=== PATIENT | female | born 1960 | race Caucasian/White ===

== ENCOUNTER 2020-05-13 10:21 | Day surgery (SDC) | payer MEDICARE, OTHER, SELFPAY ==
[2020-05-06 14:59] VITALS: BMI 29.0
--- NOTE | 2020-05-12 13:45 | HO.ANESPROP2 ---
Documented by User: Susan Pack 05/12/20 13:48 HPI - Anesthesia Eval Consult details Narrative: 60yo F for colonoscopy PMFSH Past Medical History Medical History Arthritis of back Chronic back pain Depression Elevated cholesterol History of palpitations Hypertension Migraine Surgical History Surgical History History of back surgery History of carpal tunnel surgery of right wrist History of lumbar spinal fusion Hx of colonoscopy Status post left foot surgery Social History Social History Smoking Status: Former smoker Smoked in Last 30 Days: No Smoking Quit Date: 2 YEARS AGO Use of substances other than those prescribed or required for medical reasons: No Advance Directives: Yes Advance Directives on File: Yes Advance Directives Date on File: 05/13/20 Recently lost weight without trying: No Meds Allergies Allergy/AdvReac Type Severity Reaction Status Date / Time Iodinated Contrast Media Allergy Hives Verified 05/06/20 14:47 oxycodone [From OxyContin] Allergy Hives Verified 05/06/20 14:47 Home Medications Medication Instructions Recorded Confirmed Type atorvastatin 1 tab PO DAILY 05/06/20 05/06/20 History dicyclomine 1 tab PO QID 05/06/20 05/06/20 History diphenoxylate-atropine [Lomotil] 1 tab PO DAILY PRN 05/06/20 05/06/20 History fluoxetine 60 mg PO 05/06/20 History hydrocodone-acetaminophen 1 tab PO BID PRN 05/06/20 05/06/20 History lorazepam PO 05/06/20 History vokfiejnkbbd-bqmncykz-gkohfo 1 tab PO DAILY 05/06/20 05/06/20 History [Centrum Silver] propranolol 1 cap PO DAILY 05/06/20 05/06/20 History quetiapine 1 tab PO BEDTIME 05/06/20 05/06/20 History rizatriptan [Maxalt] 10 mg PO Q2-4H PRN 05/06/20 05/06/20 History Exam Exam Date and Time: May 12, 2020 1345 Height,Weight and Vital Signs: Height 5 ft 6 in Weight 81.647 kg Pertinent Lab Results Pertinent Lab Results: ECHO 2017: LVEF 65-70%, no rwma, no valve path Assessment and Plan Assessment Anesthesia Assessment: Chart Reviewed Documented by User: Nicole Orosco 05/13/20 11:38 PMFSH Past Medical History Medical History Arthritis of back Chronic back pain Depression Elevated cholesterol History of palpitations Hypertension Migraine Family History Family history of problems with anesthesia: No Surgical History Surgical History History of back surgery History of carpal tunnel surgery of right wrist History of lumbar spinal fusion Hx of colonoscopy Status post left foot surgery History of Problems with Anesthesia: No Social History Social History Smoking Status: Former smoker Smoked in Last 30 Days: No Smoking Quit Date: 2 YEARS AGO Use of substances other than those prescribed or required for medical reasons: No Advance Directives: Yes Advance Directives on File: Yes Advance Directives Date on File: 05/13/20 Recently lost weight without trying: No Meds Allergies Allergy/AdvReac Type Severity Reaction Status Date / Time Iodinated Contrast Media Allergy Hives Verified 05/06/20 14:47 oxycodone [From OxyContin] Allergy Hives Verified 05/06/20 14:47 Home Medications Medication Instructions Recorded Confirmed Type atorvastatin 1 tab PO DAILY 05/06/20 05/06/20 History dicyclomine 1 tab PO QID 05/06/20 05/06/20 History diphenoxylate-atropine [Lomotil] 1 tab PO DAILY PRN 05/06/20 05/06/20 History fluoxetine 60 mg PO 05/06/20 History hydrocodone-acetaminophen 1 tab PO BID PRN 05/06/20 05/06/20 History lorazepam PO 05/06/20 History cltjusnufins-zpupovew-ynhary 1 tab PO DAILY 05/06/20 05/06/20 History [Centrum Silver] propranolol 1 cap PO DAILY 05/06/20 05/06/20 History quetiapine 1 tab PO BEDTIME 05/06/20 05/06/20 History rizatriptan [Maxalt] 10 mg PO Q2-4H PRN 05/06/20 05/06/20 History Exam Height,Weight and Vital Signs: Vital Signs Temp Pulse Resp BP Pulse Ox 05/13/20 11:10 97.5 F 68 18 145/83 H 97 Airway Mallampati Class: II TM Dist: >3cm Neck ROM: Full Loose/Missing/Broken Teeth: Yes (Missing) Heart: RRR Lungs: CTAB Assessment and Plan Assessment Anesthesia Assessment: Anesthesia Plan Discussed, Consent Obtained and Chart Reviewed Final Anesthetic Review NPO: Yes Intake Type: Clears Intake Timing: Greater than 8 hours and Solids Intake Timing: Greater than 8 hours ASA Class: II Final Preanesthetic Review: No Changes in Pt Med Stat, Meds & Allergies Reviewed, Consent Obtained/Reviewed, Med/Surg/Anes Hx Reviewed and Anes Risks/Benef Reviewed Patient Risk: Intermediate Procedure Risk: Low Anesthetic Plan Anesthetic Plan: MAC: Disposition: Standard PACU
[2020-05-13 11:10] VITALS: BP 145/83; PULSE 68; RESP 18; TEMP 36.4; O2SAT 97
[2020-05-13] MEDS: Lactated Ringers 1,000 ML 100 ML IVCONT (11:28)
--- NOTE | 2020-05-13 11:43 | MHC.SHP ---
Pre-Procedural Eval Section A The patient is an INPATIENT: Yes Changes since office visit: No Cold of Flu in the past 2 weeks, No New Medical Problems, No Changes in Medication and No Patient answered all questions The History & Physical has been completed within 30 days and I have reviewed it.: Yes Section B Chief Complaint: SCREENING Allergies: Allergies Allergy/AdvReac Type Severity Reaction Status Date / Time Iodinated Contrast Media Allergy Hives Verified 05/06/20 14:47 oxycodone [From OxyContin] Allergy Hives Verified 05/06/20 14:47 Plan Patient has been examined and remains a candidate for the planned procedure
[2020-05-13 12:26] VITALS: BP 120/65; PULSE 67; RESP 18; TEMP 36.7; O2SAT 98
--- NOTE | 2020-05-13 12:29 | PM.OP ---
Brief Operative Note Date of procedure: 05/13/20 Pre-op diagnosis: screening Post-op diagnosis: other (colon polyp) Procedure: colonosocpy Anesthesia: MAC Surgeon: Chapin Sánchez Estimated blood loss (mL): 0 Pathology: other (polyp 80 cm) Condition: stable Disposition: PACU
--- NOTE | 2020-05-13 12:38 | OP_ITS ---
SURGEON: Chapin Sánchez MD INDICATIONS: Colon cancer screening. PREOPERATIVE DIAGNOSIS: POSTOPERATIVE DIAGNOSIS: PROCEDURE PERFORMED: Colonoscopy to the terminal ileum with snare polypectomy. ESTIMATED BLOOD LOSS: COMPLICATIONS: ANESTHESIA: ASSISTANTS: SPECIMENS: MEDICATIONS: Monitored anesthesia care. DESCRIPTION OF PROCEDURE: History and physical performed. The risks and benefits of the procedure were explained to the patient. Informed consent was obtained. The patient was placed in the left lateral decubitus position. A digital rectal exam was performed and was found to be normal. The Olympus pediatric video colonoscope was introduced into the rectum and advanced to the cecum without difficulty. The cecum was identified by transillumination, palpation, and identification of ileocecal valve. Examination was performed and the scope was removed. She tolerated the procedure well and was taken to recovery area in stable condition. FINDINGS: The terminal ileum was normal. The visualized colonic mucosa was within normal limits without evidence of masses or ulcers. At 80 cm, was a less than 6 mm sessile polyp, this was removed with a snare and recovered via suction. No other polyps were identified. Retroflexed examination was normal. The quality of the prep was good. Hemorrhoids were noted on internal and external examination. IMPRESSION: Colon polyp. RECOMMENDATION: Follow up the biopsy results. MD SONALI Augustin/FRANCISCOL / [id number]
[2020-05-13 12:42] VITALS: BP 131/73; PULSE 62; RESP 20; O2SAT 98
--- NOTE | 2020-05-13 13:12 | HO.POSTANES ---
Post Anesthesia Evaluation Post Anesthesia Evaluation Vital Signs: Vital Signs Temp Pulse Resp BP Pulse Ox 05/13/20 12:42 62 20 131/73 98 05/13/20 12:26 98.1 F 67 18 120/65 98 05/13/20 11:10 97.5 F 68 18 145/83 H 97 Anesthesia: Monitored Mental Status: Awake Pain Control: Satisfactory Nausea/Vomiting: None Hydration: Adequate Anesthesia-Related Issues: No Anes. Related Issues
== END 2020-05-13 13:20 | disposition home or self-care (01) ==
PROVIDERS: PCP Internal Medicine; Visit Provider Internal Medicine Gastroenterology
PROC: 0DJD8ZZ Inspection of Lower Intestinal Tract, Via Natural or Artificial Opening Endoscopic (ICD-10-PCS; CPT 45378; principal; 2020-05-13 11:50)
DX: Z12.11 Encounter for screening for malignant neoplasm of colon (principal); Z86.010 Personal history of colon polyps; D12.4 Benign neoplasm of descending colon; K64.8 Other hemorrhoids; K64.4 Residual hemorrhoidal skin tags; K58.0 Irritable bowel syndrome with diarrhea; K21.9 Gastro-esophageal reflux disease without esophagitis; I10 Essential (primary) hypertension; F32.9 Major depressive disorder, single episode, unspecified; Z79.899 Other long term (current) drug therapy; Z87.891 Personal history of nicotine dependence
CPT/HCPCS: 45385; 88305

== ENCOUNTER 2020-11-11 07:08 | Emergency (ER) | payer MEDICARE, OTHER, SELFPAY ==
--- NOTE | ~2020-11-11 | CT_ITS ---
EXAMINATION: CT CHEST WITHOUT CONTRAST CLINICAL INFORMATION: Fall. Severe left-sided pain. COMPARISON: Previous chest CT scans most recent April 2020 TECHNIQUE: Multidetector volumetric CT imaging of the chest was done. Axial MIP volume rendering provided. Sagittal and coronal reformatted images were obtained. This CT examination was performed using dose optimization techniques as appropriate, variously including the following: *Automated exposure control *Adjustment of mA and/or kV according to patient size (this includes techniques or standardized protocols for targeted exams where dose is matched to indication/reason for exam; i.e. extremities or head) *Use of iterative reconstruction technique DLP: 335 mGy-cm FINDINGS: LUNGS: There is a subsegmental atelectasis in both lower lobes at the lung bases, left greater than right, and in the lingula.. The small pulmonary nodules are stable. MEDIASTINUM: The mediastinum is normal. PLEURA: There is a a trace left pleural effusion. There is no right pleural effusion. There is no pneumothorax. AXILLA: No lymphadenopathy. 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 OSSEOUS STRUCTURES: There is a nondisplaced left posterior eighth rib fracture. There are degenerative changes of the spine. CT/CT chest wo con IMPRESSION: Nondisplaced left posterior eighth rib fracture. Trace left pleural effusion. No pneumothorax. Subsegmental atelectasis at the lung bases.
[2020-11-11 07:34] VITALS: BP 153/74; PULSE 60; RESP 16; TEMP 37.1; O2SAT 98; BMI 28.3
--- NOTE | 2020-11-11 07:39 | ED_ITS ---
HPI - Fall General Chief Complaint: Fall Stated Complaint: back pain, fall Time Seen by Provider: 11/11/20 07:29 Source: patient and EMS Mode of arrival: EMS Limitations: no limitations History of Present Illness HPI Narrative: 60 yo female with hx of chronic back pain fell yesterday while roller skating - struck head no LOC no AC therapy, no vomiting, injured L posterior ribs states she can barely move at this time, no other injuries, did fly from [place] last night post injury took a vicodin with no relief. MD complaint: fall Onset (ago): day(s) (Tuesday ) Fall from: other (while rollerskating) Fall witnessed: yes, by family Place fall occurred: home Loss of consciousness: none Prolonged down time: no Symptoms prior to fall: none Context: tripped/slipped Location of injury: head, chest and back Severity: severe Quality: sharp Associated symptoms (after fall): chest pain (left posterior rib pain) Related Data Home Medications Medication Instructions Recorded Confirmed atorvastatin 1 tab PO DAILY 05/06/20 05/06/20 dicyclomine 1 tab PO QID 05/06/20 05/06/20 diphenoxylate-atropine [Lomotil] 1 tab PO DAILY PRN 05/06/20 05/06/20 fluoxetine 60 mg PO 05/06/20 hydrocodone-acetaminophen 1 tab PO BID PRN 05/06/20 05/06/20 lorazepam PO 05/06/20 ktrdahgkctul-xbyxidgf-wyjhsz 1 tab PO DAILY 05/06/20 05/06/20 propranolol 1 cap PO DAILY 05/06/20 05/06/20 quetiapine 1 tab PO BEDTIME 05/06/20 05/06/20 rizatriptan [Maxalt] 10 mg PO Q2-4H PRN 05/06/20 05/06/20 Previous Rx's Medication Instructions Recorded cyclobenzaprine 10 mg PO TID PRN #14 tab 11/11/20 lidocaine 1 patch TOPICAL DAILY PRN #10 ea 11/11/20 oxycodone 5 mg PO Q6H PRN #15 tab 11/11/20 Allergies Allergy/AdvReac Type Severity Reaction Status Date / Time Iodinated Contrast Media Allergy Hives Verified 05/06/20 14:47 oxycodone [From OxyContin] Allergy Hives Verified 05/06/20 14:47 Review of Systems Review of Systems: Constitutional : No Fever, No Chills ENT/Mouth : No Ear Pain, No Hoarseness, No sore throat Eyes: No Eye Pain, No Swelling, No Redness, No Foreign Body Cardiovascular : pos Chest Pain, No SOB Respiratory : No Cough, No Dyspnea Gastrointestinal : No Nausea, No Vomiting, No Diarrhea, No abdominal Pain Genitourinary : No Dysuria, No Hematuria Musculoskeletal : no joint pain, No Myalgias, No Joint Swelling Skin : No Skin lacerations, No rash Neuro : No Weakness, No Numbness, No Loss of Consciousness, No Dizziness, No Headache Psych : No Anxiety/Panic, No Depression Heme/Lymph: no easy bruising, no Lymphadenopathy Endocrine : No Polyuria, No Polydipsia All other systems reviewed and are negative [facility] Past Medical History Attestation statement: The following information was validated with the patient. Medical History Arthritis of back Chronic back pain Depression Elevated cholesterol History of palpitations Hypertension Migraine Surgical History History of back surgery History of carpal tunnel surgery of right wrist History of lumbar spinal fusion Hx of colonoscopy Status post left foot surgery Social History Social History Alcohol intake: never Smoking Status: Unknown if ever smoked Use of substances other than those prescribed or required for medical reasons: No Advance Directives: Yes Advance Directives on File: Yes Advance Directives Date on File: 05/13/20 Physical Exam Vital Signs: Vital Signs: Last Vital Signs Temp 98.8 F 11/11/20 07:34 Pulse 60 11/11/20 07:34 Resp 16 11/11/20 07:34 BP 153/74 H 11/11/20 07:34 Pulse Ox 98 11/11/20 07:34 Body Mass Index 28.3 Appearance: Alert. Oriented X3. No acute distress. Eyes: Pupils equal, round and reactive to light. ENT: Pharynx normal. Neck: Normal inspection. Neck supple. no midline ttp CVS: Normal heart rate and rhythm. Pulses normal. L posterior ribs ttp no contusion/crepitus noted Respiratory: No respiratory distress. Breath sounds normal. Abdomen: Soft and non-tender. Back: no lumbar ttp Skin: Skin warm and dry. Normal skin color. Normal skin turgor. Extremities: No lower extremity edema. No calf ttp Neuro: Oriented X 3. No motor deficit. No sensory deficit. Course Course Course Narrative: isolated non displaced L posterior 8th rib fracture, no PTX trace effusion, no hypoxia discussed pulmonary toilet and pain control - stable for DC with precautions MDM - Fall MDM Narrative Medical decision making narrative: 60 yo female fall while rollerskating hit head injury occurred on Tuesday no AC therapy no LOC GCS 15 no signs of intracranial injury - c/o pain in L posterior ribs at this time will need pain medications, CT chest to evaluate for rib fractures, dispo per results and findings. Discharge Plan Discharge Clinical Impression: Left rib fracture Qualifiers: Encounter type: initial encounter Rib fracture type: single rib Fracture type: closed Qualified Code(s): S22.32XA - Fracture of one rib, left side, initial encounter for closed fracture Patient Disposition: Home, Self-Care Instructions: Rib Fracture (ED) Additional Instructions: return to ED for any worsening symptoms or concerns left posterior 8th rib fracture nondisplaced every hour while awake take 10 deep breaths to prevent pneumonia Prescriptions: New cyclobenzaprine 10 mg tablet 10 mg PO TID PRN (Reason: muscle spasm) Qty: 14 RF: 0 lidocaine 4 % adhesive patch,medicated 1 patch topical DAILY PRN (Reason: pain) Qty: 10 RF: 0 oxycodone 5 mg tablet 5 mg PO Q6H PRN (Reason: pain) Qty: 15 RF: 0 No Action atorvastatin 10 mg tablet 1 tab PO DAILY RF: 0 hydrocodone-acetaminophen 5-325 mg tablet 1 tab PO BID PRN (Reason: Pain) RF: 0 rizatriptan [Maxalt] 10 mg Tablet 10 mg PO Q2-4H PRN (Reason: Migraine Headache) RF: 0 propranolol 60 mg capsule,extended release 24 hr 1 cap PO DAILY RF: 0 diphenoxylate-atropine [Lomotil] 2.5-0.025 mg Tablet 1 tab PO DAILY PRN (Reason: Diarrhea) RF: 0 dicyclomine 20 mg tablet 1 tab PO QID RF: 0 lorazepam 1 mg tablet PO RF: 0 fluoxetine 20 mg capsule 60 mg PO RF: 0 sycaapebiwco-jqikeipt-zcletn Tablet 1 tab PO DAILY RF: 0 quetiapine 50 mg tablet 1 tab PO BEDTIME RF: 0 Referrals: Christian Saucedo MD [Primary Care Provider] - 2 days (if not better)
[2020-11-11] MEDS: HYDROmorphone HCl 2 MG/ML VIAL IM (08:09)
[2020-11-11 09:56] VITALS: BP 138/71; PULSE 66; RESP 16; O2SAT 97
[2020-11-11 10:25] VITALS: BP 147/69; PULSE 68; RESP 16; O2SAT 98
== END 2020-11-11 10:44 | disposition home or self-care (01) ==
PROVIDERS: Emergency Provider Emergency Medicine; PCP Internal Medicine
DX: S22.32XA Fracture of one rib, left side, initial encounter for closed fracture (principal); W18.39XA Other fall on same level, initial encounter; Y93.51 Activity, roller skating (inline) and skateboarding; Y92.414 Local residential or business street as the place of occurrence of the external cause; Y99.9 Unspecified external cause status
CPT/HCPCS: 71250; 96372; 99284; J1170

== ENCOUNTER 2021-02-15 14:06 | Emergency (ER) | payer MEDICARE, OTHER, SELFPAY ==
--- NOTE | ~2021-02-15 | XR_ITS ---
EXAMINATION: XR ANKLE, LEFT CLINICAL INFORMATION: Fall COMPARISON: None TECHNIQUE: AP, lateral, and mortise views of the left ankle. FINDINGS: There is a minimally displaced fracture of the tip of the medial malleolus. There is an obliquely orientated minimally displaced fracture of the distal fibula. Ankle mortise joint space is intact. There is overall overlying soft tissue swelling. XR/XR ankle LT 2V IMPRESSION: Minimally displaced distal fibular and medial malleolar fractures.
--- NOTE | ~2021-02-15 | XR_ITS ---
EXAMINATION: XR ANKLE, RIGHT CLINICAL INFORMATION: Fall COMPARISON: None TECHNIQUE: AP, lateral, and mortise views of the right ankle. FINDINGS: There is a very small minimally displaced fracture of the tip of the lateral malleolus. There is overlying soft tissue swelling. No additional fractures are identified. The ankle mortise is intact. XR/XR ankle RT 2V IMPRESSION: Small fracture of the tip of the lateral malleolus.
[2021-02-15 14:23] VITALS: BP 143/77; PULSE 68; RESP 16; TEMP 36.6; O2SAT 96; BMI 26.6
--- NOTE | 2021-02-15 14:52 | ED_ITS ---
HPI - General Adult General Chief complaint: Extremity Injury, Lower Stated complaint: FALL Time Seen by Provider: 02/15/21 14:52 Source: patient and family Limitations: no limitations History of Present Illness HPI narrative: Patient complaining of left ankle pain after falling approximately 2 hours ago at home patient also has some right ankle pain that is a lot less than left. Positive swelling to the left ankle greater than the righ t. Pain is 8/10 increases with range of motion or weight-bearing. Patient recently recovered from fractured ribs after a roller skating accident. Positive swelling is noted on the left ankle right ankle slightly swollen but pain is much less. Symptoms are lbkc-ya-zarsthiq at this time. Related Data Home Medications Medication Instructions Recorded Confirmed atorvastatin 1 tab PO DAILY 05/06/20 05/06/20 dicyclomine 1 tab PO QID 05/06/20 05/06/20 diphenoxylate-atropine [Lomotil] 1 tab PO DAILY PRN 05/06/20 05/06/20 fluoxetine 60 mg PO 05/06/20 hydrocodone-acetaminophen 1 tab PO BID PRN 05/06/20 05/06/20 lorazepam PO 05/06/20 hlpcguaakyqa-qpbijmcx-xucaoc 1 tab PO DAILY 05/06/20 05/06/20 propranolol 1 cap PO DAILY 05/06/20 05/06/20 quetiapine 1 tab PO BEDTIME 05/06/20 05/06/20 rizatriptan [Maxalt] 10 mg PO Q2-4H PRN 05/06/20 05/06/20 Previous Rx's Medication Instructions Recorded cyclobenzaprine 10 mg PO TID PRN #14 tab 11/11/20 lidocaine 1 patch TOPICAL DAILY PRN #10 ea 11/11/20 oxycodone 5 mg PO Q6H PRN #15 tab 11/11/20 ibuprofen 600 mg PO Q8H PRN #30 tab 02/15/21 oxycodone-acetaminophen [Percocet] 1 tab PO Q8H PRN #20 tab 02/15/21 Allergies Allergy/AdvReac Type Severity Reaction Status Date / Time Iodinated Contrast Media Allergy Hives Verified 05/06/20 14:47 oxycodone [From OxyContin] Allergy Hives Verified 02/15/21 15:11 Review of Systems Constitutional: Constitutional: Denies chills, Denies fever(s) and Denies headache(s) Eyes: Eyes: Denies diplopia ENT: Denies headache(s) Cardiovascular: Cardiovascular: Denies chest pain, Denies lightheadedness and Denies dyspnea Respiratory: Respiratory: Denies cough and Denies dyspnea Gastrointestinal: Gastrointestinal: Denies nausea and Denies vomiting Musculoskeletal: Musculoskeletal: Reports arthralgias Comments: Positive left ankle pain and swelling Positive right ankle pain much less than left Neurologic: Denies headache(s) and Denies focal weakness Hematologic/Lymphatic: Hematologic/Lymphatic: Reports no additional hematologic/lymphatic complaints [facility] Past Medical History Attestation statement: The following information was validated with the patient. Medical History Arthritis of back Chronic back pain Depression Elevated cholesterol History of palpitations Hypertension Migraine Surgical History History of back surgery History of carpal tunnel surgery of right wrist History of lumbar spinal fusion Hx of colonoscopy Status post left foot surgery Social History Social History Alcohol intake: never Advance Directives: Yes Advance Directives on File: Yes Advance Directives Date on File: 05/13/20 Physical Exam Vital Signs: Vital Signs: Last Vital Signs Temp 97.8 F 02/15/21 14:23 Pulse 68 02/15/21 14:23 Resp 16 02/15/21 14:23 BP 143/77 H 02/15/21 14:23 Pulse Ox 96 02/15/21 14:23 Body Mass Index 26.6 vital signs have been reviewed as normal and appeared to be correct. Blood pressure normal. Heart rate normal. Respiration rate normal. Temperature normal. Oxygen saturation normal. Appearance: Alert. Oriented X3. No acute distress. Head: Normal external exam. Normocephalic. Atraumatic. Eyes: PERRLA. EOMI. Conjunctiva and sclera normal. Eyelids normal. ENT: Pharynx normal. Uvula midline. Moist mucous membranes. CVS: Heart regular rate and rhythm no murmurs and rubs Respiratory: Breath sounds are clear to auscultation bilaterally. No accessory muscle use noted. Skin: Skin warm and dry. Normal skin color. Extremities: Left ankle lateral malleolus tenderness positive edema positive pulses positive sensation. Right ankle positive edema minimal tenderness on palpation. Neuro: Oriented X 3. No motor deficit. No sensory deficit. Reflexes normal. Course Course Course Narrative: Right ankle fracture Left ankle fracture Right ankle sprain left ankle sprain sent to orthopedic ANDIE Hernandez posterior splint for the left walking boot for the right nonweightbearing on the left follow-up with orthopedics within a week Medical Decision Making Imaging Data ANkle: Radiologist's impression: [address] [place], [place] [address]WMbq ReportSigned Patient: Quincy KelleyR#: [id number]: [id number]:[id number]/Sex: 60 / FADM Date: 02/15/21Loc: HOWesleyEDAttending Dr: Ordering Physician: Abelardo Zamora MD Date of Service: 02/15/21 Procedure(s): XR ankle LT 2V Accession Number(s): [id number] cc: Abelardo Zamora MD~ EXAMINATION: XR ANKLE, LEFT CLINICAL INFORMATION: Fall COMPARISON: None TECHNIQUE: AP, lateral, and mortise views of the left ankle. FINDINGS: There is a minimally displaced fracture of the tip of the medial malleolus. There is an obliquely orientated minimally displaced fracture of the distal fibula. Ankle mortise joint space is intact. There is overall overlying soft tissue swelling. XR/XR ankle LT 2V IMPRESSION: Minimally displaced distal fibular and medial malleolar fractures. Dictated By:NIKKO AGRAWAL MDSigned By:<Electronically signed by NIKKO AGRAWAL MD in OV>02/15/21 1442 DD/ 1439TD/TT: Chief Of Anesthesiology: BOB[facility] [place], [place] [address]PWlb ReportSigned Patient: Lisa Kelley#: [id number]: [id number]:[id number]/Sex: 60 / FADM Date: 02/15/21Loc: HO.EDAttending Dr: Ordering Physician: Abelardo Zamora MD Date of Service: 02/15/21 Procedure(s): XR ankle RT 2V Accession Number(s): [id number] cc: Abelardo Zamora MD~ EXAMINATION: XR ANKLE, RIGHT CLINICAL INFORMATION: Fall COMPARISON: None TECHNIQUE: AP, lateral, and mortise views of the right ankle. FINDINGS: There is a very small minimally displaced fracture of the tip of the lateral malleolus. There is overlying soft tissue swelling. No additional fractures are identified. The ankle mortise is intact. XR/XR ankle RT 2V IMPRESSION: Small fracture of the tip of the lateral malleolus. Dictated By:NIKKO AGRAWAL MDSigned By:<Electronically signed by NIKKO AGRAWAL MD in OV>02/15/21 1443 DD/ 1439TD/TT: Chief Of Anesthesiology: BOBBI Discharge Plan Discharge Clinical Impression: Ankle fracture, left, Ankle fracture, right Patient Disposition: Home, Self-Care Instructions: Ankle Fracture (ED) Additional Instructions: Call Orthopedics for follow-up within a week Nonweightbearing on the left ankle There is slight weight on the right rest ice elevation Prescriptions: New oxycodone-acetaminophen [Percocet] 2.5-325 mg tablet 1 tab PO Q8H PRN (Reason: pain) Qty: 20 RF: 0 ibuprofen 600 mg tablet 600 mg PO Q8H PRN (Reason: pain) Qty: 30 RF: 0 No Action atorvastatin 10 mg tablet 1 tab PO DAILY RF: 0 hydrocodone-acetaminophen 5-325 mg tablet 1 tab PO BID PRN (Reason: Pain) RF: 0 rizatriptan [Maxalt] 10 mg Tablet 10 mg PO Q2-4H PRN (Reason: Migraine Headache) RF: 0 propranolol 60 mg capsule,extended release 24 hr 1 cap PO DAILY RF: 0 diphenoxylate-atropine [Lomotil] 2.5-0.025 mg Tablet 1 tab PO DAILY PRN (Reason: Diarrhea) RF: 0 dicyclomine 20 mg tablet 1 tab PO QID RF: 0 lorazepam 1 mg tablet PO RF: 0 fluoxetine 20 mg capsule 60 mg PO RF: 0 aawldphnvwqb-raubfdar-chhnet Tablet 1 tab PO DAILY RF: 0 quetiapine 50 mg tablet 1 tab PO BEDTIME RF: 0 cyclobenzaprine 10 mg tablet 10 mg PO TID PRN (Reason: muscle spasm) Qty: 14 RF: 0 lidocaine 4 % adhesive patch,medicated 1 patch topical DAILY PRN (Reason: pain) Qty: 10 RF: 0 oxycodone 5 mg tablet 5 mg PO Q6H PRN (Reason: pain) Qty: 15 RF: 0 Referrals: Waqas Gao MD [Physician] - 2 days
[2021-02-15] MEDS: oxyCODONE HCl Immed Release 5 MG TABLET PO (15:42)
== END 2021-02-15 16:09 | disposition home or self-care (01) ==
PROVIDERS: Emergency Provider Emergency Medicine; PCP Internal Medicine
DX: S82.52XA Displaced fracture of medial malleolus of left tibia, initial encounter for closed fracture (principal); S82.832A Other fracture of upper and lower end of left fibula, initial encounter for closed fracture; S82.61XA Displaced fracture of lateral malleolus of right fibula, initial encounter for closed fracture; I10 Essential (primary) hypertension; Z79.899 Other long term (current) drug therapy; W19.XXXA Unspecified fall, initial encounter; Y93.9 Activity, unspecified; Y92.009 Unspecified place in unspecified non-institutional (private) residence as the place of occurrence of the external cause; Y99.9 Unspecified external cause status
CPT/HCPCS: 29515; 73600; 99283

== ENCOUNTER → 2021-02-17 09:00 | Outpatient (BNVA) | payer MEDICARE, OTHER, SELFPAY | PROVIDERS: PCP Internal Medicine; Visit Provider Orthopaedic Surgery | DX: S82.842A Displaced bimalleolar fracture of left lower leg, initial encounter for closed fracture (principal); S82.64XA Nondisplaced fracture of lateral malleolus of right fibula, initial encounter for closed fracture | CPT/HCPCS: 99202 ==

== ENCOUNTER 2021-02-26 08:49 | Day surgery (SDC) | payer MEDICARE, OTHER, SELFPAY ==
--- NOTE | 2021-02-25 08:28 | HO.ANESPROP2 ---
Documented by User: Susan Pack 02/25/21 08:29 HPI - Anesthesia Eval Consult details Narrative: 61yo F for Left Ankle Fracture ORIF PMFSH Active Problems Active Problems: All Active Problems (Updated 02/17/21 @ 09:47 by Waqas Gao MD) Fracture of lateral malleolus of right ankle (Acute) Bimalleolar fracture of left ankle (Acute) Past Medical History Medical History Arthritis of back Chronic back pain COVID-19 vaccine administered Depression Elevated cholesterol History of palpitations Hypertension Migraine Family History Family history of problems with anesthesia: No Surgical History Surgical History History of back surgery History of carpal tunnel surgery of right wrist History of hand surgery History of lumbar spinal fusion Hx of colonoscopy Status post left foot surgery History of Problems with Anesthesia: No Social History Social History Alcohol intake: never Patient Tobacco Use Status: Former Tobacco user Quit Date: 3 YRS AGO Use of substances other than those prescribed or required for medical reasons: No Are you DNR?: No Advance Directives: Yes Advance Directives on File: Yes Advance Directives Date on File: 05/13/20 Current occupational status: unemployed Current occupation: right handed Meds Allergies Allergy/AdvReac Type Severity Reaction Status Date / Time Iodinated Contrast Media Allergy Hives Verified 02/26/21 09:35 oxycodone [From OxyContin] Allergy Hives Verified 02/26/21 09:35 Home Medications Medication Instructions Recorded Confirmed Last Taken Type atorvastatin 1 tab PO DAILY 05/06/20 05/06/20 Unknown History dicyclomine 1 tab PO QID 05/06/20 05/06/20 Unknown History diphenoxylate-atropine [Lomotil] 1 tab PO DAILY PRN 05/06/20 05/06/20 Unknown History fluoxetine 60 mg PO 05/06/20 02/26/21 07:00 History hydrocodone-acetaminophen 1 tab PO BID PRN 05/06/20 05/06/20 Unknown History lorazepam PO 05/06/20 Unknown History ogddqwumzotm-fadscumi-hfmlrp 1 tab PO DAILY 05/06/20 05/06/20 Unknown History propranolol 1 cap PO DAILY 05/06/20 05/06/20 Unknown History quetiapine 1 tab PO BEDTIME 05/06/20 05/06/20 Unknown History rizatriptan [Maxalt] 10 mg PO Q2-4H PRN 05/06/20 05/06/20 Unknown History topiramate 15 mg sprinkle capsule 75 mg PO DAILY 02/17/21 Unknown History Exam Exam Date and Time: February 25, [id number] Narrative Narrative: ECHO 2017: LVEF 65-70%, no rwma, no valve path Assessment and Plan Assessment Anesthesia Assessment: Chart Reviewed Documented by User: Nicolas Faye MD 02/26/21 09:48 [facility] Past Medical History Medical History Arthritis of back Chronic back pain COVID-19 vaccine administered Depression Elevated cholesterol History of palpitations Hypertension Migraine Surgical History Surgical History History of back surgery History of carpal tunnel surgery of right wrist History of hand surgery History of lumbar spinal fusion Hx of colonoscopy Status post left foot surgery Social History Social History Alcohol intake: never Patient Tobacco Use Status: Former Tobacco user Quit Date: 3 YRS AGO Use of substances other than those prescribed or required for medical reasons: No Are you DNR?: No Advance Directives: Yes Advance Directives on File: Yes Advance Directives Date on File: 05/13/20 Current occupational status: unemployed Current occupation: right handed Meds Allergies Allergy/AdvReac Type Severity Reaction Status Date / Time Iodinated Contrast Media Allergy Hives Verified 02/26/21 09:35 oxycodone [From OxyContin] Allergy Hives Verified 02/26/21 09:35 Home Medications Medication Instructions Recorded Confirmed Last Taken Type atorvastatin 1 tab PO DAILY 05/06/20 05/06/20 Unknown History dicyclomine 1 tab PO QID 05/06/20 05/06/20 Unknown History diphenoxylate-atropine [Lomotil] 1 tab PO DAILY PRN 05/06/20 05/06/20 Unknown History fluoxetine 60 mg PO 05/06/20 02/26/21 07:00 History hydrocodone-acetaminophen 1 tab PO BID PRN 05/06/20 05/06/20 Unknown History lorazepam PO 05/06/20 Unknown History bpazndbrjupw-aolnuoyy-sqdpuw 1 tab PO DAILY 05/06/20 05/06/20 Unknown History propranolol 1 cap PO DAILY 05/06/20 05/06/20 Unknown History quetiapine 1 tab PO BEDTIME 05/06/20 05/06/20 Unknown History rizatriptan [Maxalt] 10 mg PO Q2-4H PRN 05/06/20 05/06/20 Unknown History topiramate 15 mg sprinkle capsule 75 mg PO DAILY 02/17/21 Unknown History Exam Airway Mallampati Class: II TM Dist: >3cm Neck ROM: Full Loose/Missing/Broken Teeth: No Assessment and Plan Assessment Anesthesia Assessment: Anesthesia Plan Discussed and Chart Reviewed Final Anesthetic Review NPO: Yes ASA Class: II Final Preanesthetic Review: No Changes in Pt Med Stat, Meds/Allgs Chart Reviewed, Consent Obtained/Reviewed and Anes Risks/Benef Reviewed Patient Risk: Low Procedure Risk: Low Anesthetic Plan Anesthetic Plan: GA and Regional Block Disposition: Standard PACU
--- NOTE | ~2021-02-26 | FL_ITS ---
EXAMINATION: XR FLUOROSCOPY WITH IMAGES CLINICAL INFORMATION: Reduction ankle fracture. COMPARISON: Radiographs left ankle 02/15/2021 TECHNIQUE: Fluoroscopy performed by Dr. Alan Instr. Fluoroscopy time: under 60 seconds. DAP: [id number] mGycm2 Images: 2 FINDINGS: Distal left fibular fracture fracture is reduced with compression plate and multiple screws. Alignment is anatomic. The hardware is intact. Ankle mortise is symmetric. Transverse fracture tip medial malleolus is in near anatomic alignment. FL/FL guidance in OR IMPRESSION: Status post reduction internal fixation distal left fibular fracture in anatomic alignment. Stable fracture tip lateral left medial malleolus.
--- NOTE | 2021-02-26 07:41 | MHC.SHP ---
Pre-Procedural Eval Section A Date of Service: 02/26/21 The patient is an INPATIENT: No Changes since office visit: No Cold of Flu in the past 2 weeks, No New Medical Problems, No Changes in Medication and No Patient answered all questions The History & Physical has been completed within 30 days and I have reviewed it.: Yes Section B Chief Complaint: fx of left lower leg Allergies: Allergies Allergy/AdvReac Type Severity Reaction Status Date / Time Iodinated Contrast Media Allergy Hives Verified 02/17/21 09:15 oxycodone [From OxyContin] Allergy Hives Verified 02/17/21 09:15 Plan I have reviewed the history and physical and performed a pertinent physical examination on my patient. No changes have occurred unless specified.
[2021-02-26 09:08] VITALS: BMI 25.4
[2021-02-26 09:52] VITALS: BP 147/75; PULSE 65; RESP 16; TEMP 36.6; O2SAT 98
[2021-02-26] MEDS: Lactated Ringers 1,000 ML 100 ML IVCONT (09:54)
--- NOTE | 2021-02-26 11:34 | W.PM.OPN ---
Operative Note Operative Note Date of Service: 02/26/21 Narrative: OPERATIVE PROCEDURE NOTE SURGEON: Dr. Alan (Giuliana) Instrum CERTIFIED REGISTERED LOCKSMITH: Drea Allan PAC PREOP DIAGNOSIS: Bimalleolar fractured left ankle POSTOP DIAGNOSIS: Same OPERATIVE PROCEDURE: ORIF fracture left ankle CLINICAL NOTE: This lady actually fell and injured both her ankles a fall last week. She had a sprain type of injury to her right but to the left on had bimalleolar fracture equivalent. After explaining the risks, benefits, and alternatives of the surgery it was mutually agreed upon to carry out the following procedure OPERATIVE PROCEDURE Under a regional and general anesthetic the patient was placed supine on the fracture table. A pneumatic tourniquet cuff was placed around the upper left thigh and inflated to 300 mm of mercury at the beginning of the case. The left foot and ankle were then prepped and draped in standard fashion. The Surgical time-out was then performed. The patient was identified. Procedure confirmed. Site confirmed. Medical and allergy history were reviewed. Preoperative antibiotics were given. Standard DVT prophylaxis in place. All other items were discussed and agreed upon. Standard lateral approach to the lateral malleolus was carried out. The hemostasis achieved along the way using electrocautery. Periosteum was elevated anteriorly but posteriorly. The fracture was identified. It was open. It was curetted clear. He was irrigated. It was then reduced in an anatomical fashion. Following this 2 interfragmentary screws were inserted in the standard technique. This gave excellent purchase and reduction of the fracture. Following this a 4 hole anatomic lateral plate was used. One of the distal holes was drilled measured and a locking screw inserted. Approximately the 2nd most proximal hole was drilled measured and a nonlocking screw was inserted bringing the plate nicely to the bone. Following this the remainder of the 3 most proximal holes were drilled measured and nonlocking screws inserted and distally 3 of the holes were drilled measured and nonlocking screws inserted. At this point AP and lateral fluoroscopic images were used to show that the mortise was reduced the fracture reduced anatomically in all the hardware was appropriate. Therefore proceeded to closure. Wound was irrigated the skin was approximated using interrupted 2 0 Dexon skin was closed with karrie sterile dressing was then applied. Room the foot was placed in a posterior mold its splint with the foot at 90 degrees. The tourniquet was let down total tourniquet time of 38 minutes. The patient then had the anesthesia reversed. They were transferred supine to the room bed then taken to recovery room in good condition. Intraoperatively there was approximately 10 cc blood loss no intraop complications
[2021-02-26 11:49] VITALS: BP 127/69; PULSE 69; RESP 14; TEMP 37.6; O2SAT 100
[2021-02-26 11:54] VITALS: BP 134/72; PULSE 71; RESP 16; O2SAT 99
[2021-02-26 11:59] VITALS: BP 133/73; PULSE 71; O2SAT 99
[2021-02-26 12:19] VITALS: BP 134/78; PULSE 71; RESP 18; O2SAT 97
== END 2021-02-26 12:55 | disposition home or self-care (01) ==
PROVIDERS: PCP Internal Medicine; Visit Provider Orthopaedic Surgery
PROC: (CPT 27814; principal; 2021-02-26 11:00)
DX: S82.842A Displaced bimalleolar fracture of left lower leg, initial encounter for closed fracture (principal); S82.64XA Nondisplaced fracture of lateral malleolus of right fibula, initial encounter for closed fracture; W10.9XXA Fall (on) (from) unspecified stairs and steps, initial encounter; Y93.89 Activity, other specified; Y92.009 Unspecified place in unspecified non-institutional (private) residence as the place of occurrence of the external cause; Y99.8 Other external cause status; I10 Essential (primary) hypertension; G89.29 Other chronic pain; M54.9 Dorsalgia, unspecified; M47.9 Spondylosis, unspecified; Z98.1 Arthrodesis status; Z79.899 Other long term (current) drug therapy; Z88.8 Allergy status to other drugs, medicaments and biological substances; Z91.041 Radiographic dye allergy status; Z87.891 Personal history of nicotine dependence
CPT/HCPCS: 27814; C1713; J0690; J1100; J2250; J2405; J3010

== ENCOUNTER → 2021-02-27 12:11 | Outpatient (BNVA) | payer MEDICARE, OTHER, SELFPAY | PROVIDERS: Visit Provider Physician Assistant ==

== ENCOUNTER 2021-03-13 07:27 | Outpatient (REF) | payer MEDICARE, OTHER, SELFPAY ==
--- NOTE | ~2021-03-13 | XR_ITS ---
EXAMINATION: XR ANKLE, BILATERAL CLINICAL INFORMATION: Displaced bimalleolar fracture. COMPARISON: Bilateral ankle 01/16/2011. TECHNIQUE: 3 views each ankle. FINDINGS: RIGHT ANKLE: There is a small avulsion fracture fragment tip of lateral malleolus with mild soft tissue swelling similar to previous study. The ankle mortise and subtalar joints are normal. A small calcaneal heel enthesophyte is seen. The soft tissues are normal. LEFT ANKLE: There is a lateral fibular plate and screws stabilizing fibular fracture. A small avulsion fracture tip of medial malleolus is stable. The ankle mortise and subtalar joints are normal. There is a small retrocalcaneal enthesophyte. The soft tissues are normal. XR/XR ankle LT min 3V IMPRESSION: Small avulsion fracture tip of lateral malleolus with mild soft tissue swelling in right ankle unchanged to previous study. Left fibular fracture has been stabilized with lateral plate and screws in satisfactory alignment. The surgical skin karrie are visualized. Small avulsion fracture tip of medial malleolus is stable.
--- NOTE | ~2021-03-13 | XR_ITS ---
EXAMINATION: XR ANKLE, BILATERAL CLINICAL INFORMATION: Displaced bimalleolar fracture. COMPARISON: Bilateral ankle 01/16/2011. TECHNIQUE: 3 views each ankle. FINDINGS: RIGHT ANKLE: There is a small avulsion fracture fragment tip of lateral malleolus with mild soft tissue swelling similar to previous study. The ankle mortise and subtalar joints are normal. A small calcaneal heel enthesophyte is seen. The soft tissues are normal. LEFT ANKLE: There is a lateral fibular plate and screws stabilizing fibular fracture. A small avulsion fracture tip of medial malleolus is stable. The ankle mortise and subtalar joints are normal. There is a small retrocalcaneal enthesophyte. The soft tissues are normal. XR/XR ankle RT min 3V IMPRESSION: Small avulsion fracture tip of lateral malleolus with mild soft tissue swelling in right ankle unchanged to previous study. Left fibular fracture has been stabilized with lateral plate and screws in satisfactory alignment. The surgical skin karrie are visualized. Small avulsion fracture tip of medial malleolus is stable.
== END 2021-03-13 07:28 | disposition home or self-care (01) ==
LOC: HO.HOSX 07:27
PROVIDERS: Visit Provider Physician Assistant
DX: S82.842A Displaced bimalleolar fracture of left lower leg, initial encounter for closed fracture (principal); S82.64XA Nondisplaced fracture of lateral malleolus of right fibula, initial encounter for closed fracture
CPT/HCPCS: 73610; 99212

== ENCOUNTER → 2021-03-17 11:01 | Outpatient (BNVA) | payer MEDICARE, OTHER, SELFPAY | PROVIDERS: Visit Provider Orthopaedic Surgery | DX: S82.842D Displaced bimalleolar fracture of left lower leg, subsequent encounter for closed fracture with routine healing (principal) | CPT/HCPCS: 99212 ==

== ENCOUNTER 2021-03-31 09:41 | Outpatient (REF) | payer MEDICARE, OTHER, SELFPAY ==
--- NOTE | ~2021-03-31 | XR_ITS ---
EXAMINATION: XR ANKLE, LEFT CLINICAL INFORMATION: Pain in left ankle. COMPARISON: None TECHNIQUE: AP, lateral, and mortise views of the left ankle. FINDINGS: There is stabilized lateral malleolar fracture with metallic plate and screws in satisfactory alignment. Nondisplaced ulnar styloid process fracture is again visualized. The ankle mortise and subtalar joints are normal. XR/XR ankle LT min 3V IMPRESSION: Oblique distal fibular fracture has been stabilized with metallic plate and screws. Small undisplaced medial malleolar fracture is noted. The findings are stable compared to previous exam 03/13/2021.
== END 2021-03-31 09:42 | disposition home or self-care (01) ==
LOC: HO.HOSX 09:41
PROVIDERS: Visit Provider Orthopaedic Surgery
DX: S82.842D Displaced bimalleolar fracture of left lower leg, subsequent encounter for closed fracture with routine healing (principal)
CPT/HCPCS: 73610; 99212

== ENCOUNTER → 2021-04-21 13:27 | Outpatient (BNVA) | payer MEDICARE, OTHER, SELFPAY | PROVIDERS: Visit Provider Physician Assistant | DX: S82.842D Displaced bimalleolar fracture of left lower leg, subsequent encounter for closed fracture with routine healing (principal) | CPT/HCPCS: 99212 ==

== ENCOUNTER → 2021-06-15 11:10 | Outpatient (BNVA) | payer MEDICARE, OTHER, SELFPAY | PROVIDERS: PCP Internal Medicine; Visit Provider Physician Assistant | DX: S82.842D Displaced bimalleolar fracture of left lower leg, subsequent encounter for closed fracture with routine healing (principal) | CPT/HCPCS: 99212 ==

== ENCOUNTER 2021-09-17 09:04 | Outpatient (REF) | payer MEDICARE, OTHER, SELFPAY ==
--- NOTE | ~2021-09-17 | XR_ITS ---
EXAMINATION: XR ANKLE, LEFT CLINICAL INFORMATION: Pain COMPARISON: 03/31/2021 TECHNIQUE: AP, lateral, and mortise views of the left ankle. FINDINGS: There is lack of osseous union of the old, small avulsion fracture at the tip of the medial malleolus. The talar dome is well-positioned within the mortise. Ankle joint space is maintained. No osteoarthritis at the ankle. No widening of the syndesmotic space. The prior Moser B fracture of the distal fibula is healed, status post lateral plate and screw fixation. No hardware loosening. There is an enthesophyte of the Achilles insertion on the posterior calcaneus. XR/XR ankle LT min 3V IMPRESSION: * No new abnormalities compared to 03/31/2021. No loosening of the fibular fixation hardware. * Old, healed distal fibular fracture and old medial malleolar avulsion fracture.
== END 2021-09-17 09:05 | disposition home or self-care (01) ==
LOC: HO.HOSX 09:04
PROVIDERS: Visit Provider Physician Assistant
DX: S82.842D Displaced bimalleolar fracture of left lower leg, subsequent encounter for closed fracture with routine healing (principal)
CPT/HCPCS: 73610; 99212

== ENCOUNTER 2021-10-16 13:32 | Outpatient (REF) | payer MEDICARE, OTHER, SELFPAY ==
--- NOTE | ~2021-10-16 | CT_ITS ---
EXAMINATION: CT CHEST SCREENING CLINICAL INFORMATION: Former smoker. 25 pack year history. Quit 3 years ago. COMPARISON: Previous chest CT most recent November 2020 TECHNIQUE: Multidetector volumetric CT imaging of the chest is performed without contrast using low dose technique. Additional 2D coronal and sagittal reformatted images and axial 3D maximum intensity projection (MIP) images are generated on the CT workstation. This CT examination was performed using dose optimization techniques as appropriate, variously including the following: *Automated exposure control *Adjustment of mA and/or kV according to patient size (this includes techniques or standardized protocols for targeted exams where dose is matched to indication/reason for exam; i.e. extremities or head) *Use of iterative reconstruction technique DLP: 53 mGy-cm FINDINGS: LUNGS: The small pulmonary nodules are stable. Largest pulmonary nodule measures 4 mm in the right lower lobe axial image 303 series 5. No new pulmonary nodule is seen. There is a cyst or focal bronchiectasis in the superior segment of the left lower lobe that is stable. No endobronchial or endotracheal lesion. MEDIASTINUM: The mediastinum is normal. PLEURA: There is no pleural effusion. No pleural mass or thickening. AXILLA: No lymphadenopathy. UPPER ABDOMEN: Unremarkable OSSEOUS STRUCTURES: There are degenerative changes of the spine. CT/CT lung screening IMPRESSION: Stable small pulmonary nodules. ASSESSMENT: Lung-RADS category 2: Benign RECOMMENDATION: Annual low-dose chest CT follow-up recommended.
== END 2021-10-16 13:33 | disposition home or self-care (01) ==
LOC: HO.CT 13:32
PROVIDERS: PCP Internal Medicine; Visit Provider Physician Assistant Medical
DX: Z12.2 Encounter for screening for malignant neoplasm of respiratory organs (principal); F17.210 Nicotine dependence, cigarettes, uncomplicated
CPT/HCPCS: 71271

== ENCOUNTER 2022-06-02 07:20 | Emergency (ER) | payer MEDICARE, OTHER, SELFPAY ==
[2022-06-02 08:14] VITALS: BP 137/77; PULSE 81; RESP 20; TEMP 36.7; O2SAT 98; BMI 29.0
--- OUTSIDE RECORDS SUMMARY | 2022-06-02 08:34 | XMS_ITS | Continuity of Care Document ---
:1960 Author Organization [facility] Address [address] [place] [address] Drive [address] [place] [address]- Care Team Providers Name Role Phone Christian Saucedo MD Primary Care Physician Encounter [facility] Date(s): 11/13/20 - 12/13/[address] [place], [place] [address] Allergies, Adverse Reactions, Alerts Substance Reaction Severity Status OxyCONTIN rash welts Active CeleBREX Active Immunizations Given and Recorded Vaccine Date Status Refusal Reason SARS-CoV-2 (COVID-19) mRNA-1273 vaccine 10/14/20 Recorded SARS-CoV-2 (COVID-19) mRNA-1273 vaccine 09/16/20 Recorded influenza virus vaccine, inactivated 05/21/20 Given influenza virus vaccine, inactivated 08/06/19 Given influenza virus vaccine, inactivated 05/16/18 Recorded tetanus/diphtheria/pertussis, acel(Tdap) 09/09/14 Recorde d Medications atorvastatin 10 mg oral tablet 1 tablet = 10 mg, By Mouth, Daily, # 30 tablet, 5 Refills, Maintenance, 08/17/20 19:11:00 EST, Tablet, [facility] # [facility], 165, cm, 07/16/20 8:26:00 EST, Height Start Date: 08/17/20 Status: Ordereddicyclomine 10 mg oral capsule 1 capsule = 10 mg, By Mouth, 4 times a day, # 28 capsule, 0 Refills, Maintenance, 01/05/19 10:43:39 EDT, Capsule Start Date: 01/05/19 Stop Date: 01/12/19 Status: OrderedLorazepam 0 Refills, Maintenance, 04/02/16 16:07:36 Start Date: 04/02/16 Status: Orderedpropranolol 60 mg oral capsule, extended release 60 mg, 1, capsule, By Mouth, Daily, # 90 capsule, Refills 0, Maintenance, 11/19/20 9:10:00 EDT, Partial fill upon patient request if the prescription is for a schedule II opioid drug. Start Date: 11/19/20 Status: OrderedPROzac 20 mg oral capsule 60 mg, 3, capsule, By Mouth, Daily, # 90 capsule, Refills 5, Tot. Refills 5, Maintenance, 09/22/20 7:56:00 EST, Route to Pharmacy Electronically, [facility] # [facility], 165, cm, 07/16/20 8:26:00 EST, Height Start Date: 09/22/20 Status: OrderedQUEtiapine 50 mg oral tablet 1 tablet = 50 mg, By Mouth, Daily, # 30 tablet, 5 Refills, Maintenance, 11/04/20 11:23:00 EDT, Tablet, [facility] # 50, 165, cm, 10/23/20 9:41:00 EDT, Height Start Date: 11/04/20 Status: OrderedRestasis 0.05% ophthalmic emulsion 1 drops, Eyes, Both, Every 12 hours, # 30 each, 0 Refills, Maintenance, 01/05/19 10:42:05 EDT Start Date: 01/05/19 Status: Orderedtopiramate 25 mg oral tablet 1 tablet = 25 mg, By Mouth, Daily at bedtime, # 30 tablet, 0 Refills, Maintenance, 07/16/20 8:29:00 EST, Tablet, Partial fill upon patient request if the prescription is for a schedule II opioid drug. 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 [id number] [address] Sánchez negative by patient report.3Followed by Dr. [id number] by Dr. Ford at [facility]. Social History Social History Type Response Smoking Status Former smoker, quit more letitia n 30 days ago; Other: quit 2017; entered on: 07/16/20 Sex
--- OUTSIDE RECORDS SUMMARY | 2022-06-02 08:34 | XMS_ITS | Continuity of Care Document ---
:1960 Author Organization [facility] Address [address] [place] [address]- Care Team Providers Name Role Phone Sheryl MAHER, Christian Orozco Primary Care Physician Encounter [facility] Date(s): 04/23/21 - 05/23/21 [facility] [address] [place] [address]- Allergies, Adverse Reactions, Alerts Substance Reaction Severity [...] Daily, # 30 tablet, 5 Refills, Maintenance, 12/31/20 9:41:00 EDT, Tablet, [facility] # [facility], 165, cm, 12/02/20 8:00:00 EDT, Height Start Date: 12/31/20 Status: Ordereddicyclomine 10 mg oral capsule 1 [...] capsule, Refills 5, Tot. Refills 5, Maintenance, 03/27/21 16:22:00 EDT, Route to Pharmacy Electronically, [facility] # [facility], 165, cm, 02/10/21 14:46:00 EDT, Height, 85.5, kg, 01/08/21 8:32:00 EDT, Dry Weight Start Date: 03/27/21 Status: OrderedQUEtiapine 50 mg oral tablet See Instructions, TAKE ONE TABLET BY MOUTH EVERY DAY, # 30 tablet, 1 Refills, [facility] # 50, 165, cm, 02/10/21 14:46:00 EDT, Height, 85.5, kg, 01/08/21 8:32:00 EDT, Dry Weight Start Date: 05/07/21 Status: OrderedRestasis 0.05% ophthalmic emulsion 1 drops, Eyes, Both, Every 12 hours, # 30 each, 0 Refills, Maintenance, 01/05/19 10:42:05 EDT Start Date: 01/05/19 Status: OrderedTopiramate = 100 mg, By Mouth, 0 Refills, Maintenance, 01/02/21 11:31:00 EDT, Partial fill upon patient requestif the prescription is for a schedule II opioid drug. 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 [id number] [address] Sánchez negative by patient report.3Followed by Dr. [id number] by Dr. Ford at [facility]. Social History Social History Type Response Smoking Status Former smoker, quit more letitia n 30 days ago; Other: quit 2017; entered on: 07/16/20 Sex
--- OUTSIDE RECORDS SUMMARY | 2022-06-02 08:34 | XMS_ITS | Continuity of Care Document ---
:1960 Author Organization [facility] Address [address] [place] [address] Drive [address] [place] [address]- Care Team Providers Name Role Phone Sheryl MAHER, Christian Orozco Primary Care Physician Encounter [facility] Date(s): 06/20/20 - 07/20/20 [facility] [address] [place] [address]- Attending Physician: Raissa Kruger Admitting Physician: Raissa Kruger Referring Physician: AdmtrRaissa Allergies, Adverse Reactions, Alerts Substance Reaction Severity Status OxyCONTIN rash welts Active Immunizations Given and Recorded Vaccine Date Status Refusal Reason influenza virus vaccine, inactivated 05/21/20 Given influenza virus vaccine, inactivated 08/06/19 Given influenza virus vaccine, inactivated 05/16/18 Recorded tetanus/diphtheria/pertussis, acel(Tdap) 09/09/14 Recorde d Medications atorvastatin 10 mg oral tablet 1 tablet = 10 mg, By Mouth, Daily, # 30 tablet, 5 Refills, Maintenance, 02/17/20 9:35:00 EDT, Tablet, [facility] # [facility], 165, cm, 02/11/20 11:33:00 EDT, Height Start Date: 02/17/20 Status: Ordereddicyclomine 10 mg oral capsule 1 capsule = 10 mg, By Mouth, 4 times a day, # 28 capsule, 0 Refills, Maintenance, 01/05/19 10:43:39 EDT, Capsule Start Date: 01/05/19 Stop Date: 01/12/19 Status: OrderedLorazepam 0 Refills, Maintenance, 04/02/16 16:07:36 Start Date: 04/02/16 Status: OrderedPROzac 20 mg oral capsule 60 mg, 3, capsule, By Mouth, Daily, # 90 capsule, Refills 5, Tot. Refills 5, Maintenance, 03/30/20 9:15:00 EDT, Route to Pharmacy Electronically, [facility] # [facility], 165, cm, 02/11/20 11:33:00 EDT, Height Start Date: 03/30/20 Status: OrderedQUEtiapine 50 mg oral tablet 1 tablet = 50 mg, By Mouth, Daily, DOSAGE DECREASE, # 30 tablet, 2 Refills, Maintenance, 06/06/20 13:23:00 EDT, Tablet, [facility] # [facility], 165, cm, 05/14/20 13:09:00 EDT, Height Start Date: 06/06/20 Status: OrderedRestasis 0.05% ophthalmic emulsion 1 drops, [...] of tobacco use(Confirmed) Active 1Followed by Dr. [id number] [address] Sánchez negative by patient report.3Followed by Dr. [id number] by Dr. Ford at [facility]. Social History Social History Type Response Smoking Status Former smoker, quit more letitia n 30 days ago; Other: quit 2017; entered on: 07/16/20 Sex
--- OUTSIDE RECORDS SUMMARY | 2022-06-02 08:34 | XMS_ITS | Continuity of Care Document ---
:1960 Author Organization [facility] Adult Address [address] [place] [address]- Care Team Providers Name Role Phone Sheryl MAHER, Christian Orozco Primary Care Physician Encounter [facility] [place] Date(s): 07/16/20 - 08/15/20 [facility] [address] [place] [address]- Attending Physician: Raissa Kruger Admitting Physician: Raissa [...] 03/30/20 9:15:00 EDT, Route to Pharmacy Electronically, [facility], 165, cm, 02/11/20 11:33:00 EDT, Height Start Date: 03/30/20 Status: OrderedQUEtiapine 50 mg oral tablet 1 tablet = 50 mg, By Mouth, Daily, DOSAGE DECREASE, # 30 tablet, 2 Refills, Maintenance, 06/06/20 13:23:00 EDT, Tablet, [facility] # [facility], 165, cm, 05/14/20 13:09:00 [...] of tobacco use(Confirmed) Active 1Followed by Dr. FischerYnatya2Kcbfzukfuno [address] Sánchez negative by patient report.3Followed by Dr. SánchezGsnupiai3Idlbmmfh by Dr. Ford at [facility]. Social History Social History Type Response Smoking Status Former smoker, quit more letitia n 30 days ago; Other: quit 2018; entered on: 07/16/20 Sex
--- OUTSIDE RECORDS SUMMARY | 2022-06-02 08:34 | XMS_ITS | Continuity of Care Document ---
:1960 Author Organization [facility] Adult Address [address] [place] [address]- Care Team Providers Name Role Phone Christian Saucedo MD Primary Care Physician [place] [facility] [place] Date([place]): 11/19/20 - 11/26/20 [facility] [address] [place] [address]- Encounter Diagnosis Benign hypertension (Discharge Diagnosis) - 11/19/20 Depression (Discharge Diagnosis) - 11/19/20 Failed back syndrome of lumbar spine (Discharge Diagnosis) - 11/19/20 Hypercholesterolemia (Discharge Diagnosis) - 11/19/20 Insomnia (Discharge Diagnosis) - 11/19/20 Hx of migraine headaches (Discharge Diagnosis) - 11/19/20 Attending Physician: Christian Saucedo MD Allergies, Adverse Reactions, Alerts Substance Reaction Severity Status OxyCONTIN rash welts Active CeleBREX Active Immunizations Given and Recorded Vaccine Date Status Refusal Reason SARS-CoV-2 (COVID-19) mRNA-1273 vaccine 10/14/20 Recorded SARS-CoV-2 (COVID-19) mRNA-1273 vaccine 09/16/20 Recorded influenza virus vaccine, inactivated 05/21/20 Given influenza virus vaccine, inactivated 08/06/19 Given influenza virus vaccine, inactivated 05/16/18 Recorded tetanus/diphtheria/pertussis, acel(Tdap) 09/09/14 Recorde d Medications acetaminophen-HYDROcodone 325 mg-5 mg oral tablet See Instructions, 1 tab by mouth in the AM and Afternoon PRN pain., # 14 tablet, 0 Refills, Acute 12/01/20 0:00:00 EDT, 11/24/20 15:33:00 EDT, [facility] # [facility], Partial fill upon patient request if the prescription is for a schedule II opioid drug.... Start Date: 11/24/20 Stop Date: 12/01/20 Status: Orderedatorvastatin 10 mg oral tablet 1 tablet = 10 mg, By Mouth, Daily, # 30 tablet, 5 Refills, Maintenance, 08/17/20 19:11:00 EST, Tablet, [facility] # [facility], 165, cm, 07/16/20 [...] 09/22/20 7:56:00 EST, Route to Pharmacy Electronically, [facility] # [facility], 165, cm, 07/16/20 8:26:00 EST, Height Start Date: 09/22/20 Status: OrderedQUEtiapine 50 mg oral tablet 1 tablet = 50 mg, By Mouth, Daily, # 30 tablet, 5 Refills, Maintenance, 11/04/20 11:23:00 EDT, Tablet, [facility] # 50, 165, cm, 10/23/20 [...] of tobacco use(Confirmed) Active 1Followed by Dr. [id number] [address] Sánchez negative by patient report.3Followed by Dr. SánchezPjtjbeyn0Eyyaflts by Dr. Ford at [place] [facility]. Diagnosis Diagnosis Type Effective Health Clinical Informant Dates Status Service Benign hypertension Discharge 11/19/20 Diagnosis Depression Discharge 11/19/20 Diagnosis Failed back syndrome of Discharge 11/19/20 lumbar spine Diagnosis Hypercholesterolemia Discharge 11/19/20 Diagnosis Insomnia Discharge 11/19/20 Diagnosis Hx of migraine headaches Discharge 11/19/20 Diagnosis Vital Signs Most recent to oldest [Reference Range]: 1 Height 165 cm (11/19/20 8:53 AM) Weight 86.3 kg (11/19/20 8:53 AM) Body Mass Index [18.5-24.99] 31.7 *>HHI* (11/19/20 8:53 AM) Blood Pressure [90-138/55-84 mm Hg] 130/64 mm Hg (11/19/20 8:53 AM) Mode of Delivery (Oxygen) Room air (11/19/20 8:53 AM) Blood pressure sites Arm, left (11/19/20 8:53 AM) Weight Obtained Via Standing scale (11/19/20 8:53 AM) Social History Social History Type Response Smoking Status Former smoker, quit more letitia n 30 days ago; Other: quit 2017; entered on: 07/16/20 Sex
--- OUTSIDE RECORDS SUMMARY | 2022-06-02 08:34 | XMS_ITS | Continuity of Care Document ---
:1960 Author Organization [facility] Address [address] [place] [address]- Care Team Providers Name Role Phone Christian Saucedo MD Primary Care Physician [place] [facility] [place] Date(s): 10/23/20 - 10/30/20 [facility] [address] [place] [address]- Attending Physician: Mike Phan MD Allergies, Adverse Reactions, Alerts Substance Reaction [...] 09/22/20 7:56:00 EST, Route to Pharmacy Electronically, [facility], 165, cm, 07/16/20 8:26:00 EST, Height Start Date: 09/22/20 Status: OrderedQUEtiapine 50 mg oral tablet 1 tablet = 50 mg, By Mouth, Daily, # 30 tablet, 1 Refills, Maintenance, 09/03/20 15:17:00 EST, Tablet, [facility], 165, cm, 07/16/20 8:26:00 EST, Height Start Date: 09/03/20 Status: OrderedRestasis 0.05% ophthalmic emulsion 1 drops, [...] of tobacco use(Confirmed) Active 1Followed by Dr. FischerPbzejp1Eviivartaub [address] Sánchez negative by patient report.3Followed by Dr. SánchezCzeujrac8Ryfgqklm by Dr. Ford at [place] [facility]. Vital Signs Most recent to oldest [Reference Range]: 1 Height 165 cm (10/23/20 9:41 AM) Weight 77.27 kg (10/23/20 9:41 AM) Body Mass Index [18.5-24.99] 28.38 *H* (10/23/20 9:41 AM) Weight Obtained Via Standing scale (10/23/20 9:41 AM) Social History Social History Type Response Smoking Status Former smoker, quit more letitia n 30 days ago; Other: quit 2017; entered on: 07/16/20 Sex
--- OUTSIDE RECORDS SUMMARY | 2022-06-02 08:34 | XMS_ITS | Continuity of Care Document ---
:1960 Author Organization [facility] Address [address] [place] [address] Drive [address] [place] [address]- Care Team Providers Name Role Phone Sheryl MAHER, Christian Orozco Primary Care Physician Encounter [facility] Date(s): 02/05/21 - 03/07/[address] [place] [address]- Allergies, Adverse Reactions, Alerts Substance Reaction Severity [...] 09/22/20 7:56:00 EST, Route to Pharmacy Electronically, [facility] # [facility], 165, cm, 07/16/20 8:26:00 EST, Height Start Date: 09/22/20 Status: OrderedQUEtiapine 50 mg oral tablet 1 tablet = 50 mg, By Mouth, Daily, # 30 tablet, 5 Refills, Maintenance, 11/04/20 11:23:00 EDT, Tablet, [facility] # [facility], 165, cm, [...] of tobacco use(Confirmed) Active 1Followed by Dr. FischerQmbgjy9Bnwaerfnuuu [address] Sánchez negative by patient report.3Followed by Dr. SánchezIhvhglen1Tprcrzff by Dr. Ford at [place]. Social History Social History Type Response Smoking Status Former smoker, quit more letitia n 30 days ago; Other: quit 2017; entered on: 07/16/20 Sex
--- OUTSIDE RECORDS SUMMARY | 2022-06-02 08:34 | XMS_ITS | Continuity of Care Document ---
:1960 Author Organization [facility] [place] Address [address] [place] [address]- Care Team Providers Name Role Phone Christian Saucedo MD Primary Care Physician Encounter [facility] Date(s): 08/06/19 - 08/13/19 [facility] [place] [address] [place] [address]- [facility] Attending Physician: Kelley Wilson NP Referring Physician: Christian Saucedo MD Allergies, Adverse Reactions, Alerts Substance Reaction Severity Status OxyCONTIN rash welts Active Immunizations Given and Recorded Vaccine Date Status Refusal Reason influenza virus vaccine, inactivated 08/06/19 Given influenza virus vaccine, inactivated 05/16/18 Recorded tetanus/diphtheria/pertussis, acel(Tdap) 09/09/14 Recorde d Medications atorvastatin 10 mg oral tablet 1 tablet = 10 mg, By Mouth, Daily, # 30 tablet, 0 Refills, Maintenance Start Date: 04/25/18 Status: Ordereddicyclomine 10 mg oral capsule 1 capsule = 10 mg, By Mouth, 4 times a day, # 28 capsule, 0 Refills, Maintenance, 01/05/19 10:43:39 EDT, Capsule Start Date: 01/05/19 Stop Date: 01/12/19 Status: OrderedLorazepam 0 Refills, Maintenance, 04/02/16 16:07:36 Start Date: 04/02/16 Status: Orderedpropranolol 60 mg oral capsule, extended release 60 mg, 1, capsule, By Mouth, Daily, # 30 capsule, Refills 0, Maintenance, 04/25/18 14:17:31 EDT Start Date: 04/25/18 Status: OrderedPROzac 20 mg oral capsule 60 mg, 3, capsule, By Mouth, Daily, # 90 capsule, Refills 6, Tot. Refills 6, Maintenance, 08/06/19 9:43:00 EST, Route to Pharmacy Electronically, [facility] # [facility], 165, cm, 08/06/19 9:21:00 EST, Height Start Date: 08/06/19 Status: OrderedQUEtiapine 50 mg oral tablet 1 tablet = 50 mg, By Mouth, Daily, DOSAGE DECREASE, # 30 tablet, 6 Refills, Maintenance, 08/06/19 9:38:00 EST, Tablet, [facility] # [facility], 165, cm, 08/06/19 9:21:00 EST, Height Start Date: 08/06/19 Status: OrderedRestasis 0.05% ophthalmic emulsion 1 drops, Eyes, Both, Every 12 hours, # 30 each, 0 Refills, Maintenance, 01/05/19 10:42:05 EDT Start Date: 01/05/19 Status: Orderedrizatriptan 10 mg oral tablet 1 tablet = 10 mg, By Mouth, Daily, PRN for migraine headache, may repeat dose every 2 hours up to a maximum of 3, # 6 tablet, 0 Refills, Acute 01/07/20 10:42:00 EDT, 01/05/19 10:42:21 EDT, Tablet Start Date: 01/05/19 Stop Date: 01/07/20 Status: OrderedVicodin 5 mg-300 mg oral tablet 1 tablet, By Mouth, Every 6 hours, 0 Refills, Maintenance, 04/02/16 16:07:10 Start Date: 04/02/16 Status: Ordered Problem List Condition Effective Dates Status Health Status Informant Low vitamin D level(Confirmed) Active Hx of migraine headaches(Confirmed)1 Active H/O colonoscopy(Confirmed)2 Active Hypercholesterolemia(Confirmed) Active BMI 29.0-29.9,adult(Confirmed) Active Insomnia(Confirmed) Active Irritable bowel syndrome Active (IBS)(Confirmed)3 Failed back syndrome of lumbar Active spine(Confirmed)4 History of tobacco use(Confirmed) Active 1Followed by Dr. FischerLnkteb6Smbahydzflw [address] Sánchez negative by patient report.3Followed by Dr. SánchezSjnqvfgx2Xmijoxte by Dr. Ford at [place] [facility]. Vital Signs Most recent to oldest [Reference Range]: 1 Height 165 cm (08/06/19 9:21 AM) Weight 80.5 kg (08/06/19 9:21 AM) Oxygen Saturation [94-100 %] 98 % (08/06/19 9:21 AM) Pulse Rate [55-90 bpm] 67 bpm (08/06/19 9:21 AM) Body Mass Index [18.5-24.99] 29.57 *H* (08/06/19 9:21 AM) Blood Pressure [90-138/55-84 mm Hg] 134/72 mm Hg (08/06/19 9:21 AM) Blood pressure sites Arm, right (08/06/19 9:21 AM) Social History Social History Type Response Smoking Status Current every day smoker; Ot her: Three-quarter pack cigarettes daily; entered on: 04/25/18 Sex
--- OUTSIDE RECORDS SUMMARY | 2022-06-02 08:34 | XMS_ITS | Continuity of Care Document ---
:1960 Author Organization [facility] [place] Address [address] [place] [address]- Care Team Providers Name Role Phone Sheryl MAHER, Christian Orozco Primary Care Physician Encounter [facility] [place] Date(s): 07/16/20 - 07/23/20 [facility] [place] [address] [place] [address]- Attending Physician: Gregg TECHNICAL LEAD, Roberta Cifuentes Allergies, Adverse Reactions, Alerts Substance Reaction Severity [...] 03/30/20 9:15:00 EDT, Route to Pharmacy Electronically, [facility], 165, cm, 02/11/20 11:33:00 EDT, Height Start Date: 03/30/20 Status: OrderedQUEtiapine 50 mg oral tablet 1 tablet = 50 mg, By Mouth, Daily, DOSAGE DECREASE, # 30 tablet, 2 Refills, Maintenance, 06/06/20 13:23:00 EDT, Tablet, [facility], 165, cm, 05/14/20 [...] of tobacco use(Confirmed) Active 1Followed by Dr. FischerOzcsow2Uavpcxshbym [address] Sánchez negative by patient report.3Followed by Dr. SánchezTwsfutvw3Xotpebju by Dr. Ford at [facility]. Vital Signs Most recent to oldest [Reference Range]: 1 Height 165 cm (07/16/20 8:26 AM) Weight 85.2 kg (07/16/20 8:26 AM) Oxygen Saturation [94-100 %] 97 % (07/16/20 8:26 AM) Pulse Rate [55-90 bpm] 82 bpm (07/16/20 8:26 AM) Body Mass Index [18.5-24.99] 31.29 *>HHI* (07/16/20 8:26 AM) Blood Pressure [90-138/55-84 mm Hg] 128/80 mm Hg (07/16/20 8:26 AM) Respiratory Rate [16-30 br/min] 16 br/min (07/16/20 8:26 AM) Temperature [96.8-100.4 DegF] 99.7 DegF (07/16/20 8:26 AM) Blood pressure sites Arm, left (07/16/20 8:26 AM) Temperature Route Oral (07/16/20 8:26 AM) Social History Social History Type Response Smoking Status Former smoker, quit more letitia n 30 days ago; Other: quit 2017; entered on: 07/16/20 Sex
--- OUTSIDE RECORDS SUMMARY | 2022-06-02 08:34 | XMS_ITS | Continuity of Care Document ---
:1960 Author Organization [facility] [address] [place] [address]- Care Team Providers Name Role Phone Sheryl MAHER, Christian Orozco Primary Care Physician En[place] [facility] [place] Date(s): 01/20/21 - 02/19/[address] [place], [place] [address] Attending Physician: Raissa Kruger Admitting Physician: Raissa [...] 09/22/20 7:56:00 EST, Route to Pharmacy Electronically, [facility] # [facility], 165, cm, 07/16/20 8:26:00 EST, Height Start Date: 09/22/20 Status: OrderedQUEtiapine 50 mg oral tablet 1 tablet = 50 mg, By Mouth, Daily, # 30 tablet, 5 Refills, Maintenance, 11/04/20 11:23:00 EDT, Tablet, [facility] # [facility], 165, cm, 10/23/20 9:41:00 [...] of tobacco use(Confirmed) Active 1Followed by Dr. FischerKvsqzd2Bisjmpsreev [address] Sánchez negative by patient report.3Followed by Dr. SánchezCwomjkzf1Auwhyerg by Dr. Ford at [place] [place] [facility]. Social History Social History Type Response Smoking Status Former smoker, quit more letitia n 30 days ago; Other: quit 2017; entered on: 07/16/20 Sex
--- OUTSIDE RECORDS SUMMARY | 2022-06-02 08:34 | XMS_ITS | Continuity of Care Document ---
:1960 Author Organization [facility] Address [address] [place] [address] Drive [address] [place] [address]- Care Team Providers Name Role Phone Sheryl MAHER, Christian Orozco Primary Care Physician Encounter [facility] Date(s): 01/14/21 - 02/13/[address] [place] [address]- Allergies, Adverse Reactions, Alerts Substance Reaction Severity [...] 09/22/20 7:56:00 EST, Route to Pharmacy Electronically, [facility] # [facility], 165, cm, 07/16/20 8:26:00 EST, Height Start Date: 09/22/20 Status: OrderedQUEtiapine 50 mg oral tablet 1 tablet = 50 mg, By Mouth, Daily, # 30 tablet, 5 Refills, Maintenance, 11/04/20 11:23:00 EDT, Tablet, [facility] # [facility], 165, cm, [...] of tobacco use(Confirmed) Active 1Followed by Dr. FischerGhjnxr1Vfnwtrjyudp [address] Sánchez negative by patient report.3Followed by Dr. SánchezJkcrigtk4Tdnyjais by Dr. Ford at [place] [facility]. Social History Social History Type Response Smoking Status Former smoker, quit more letitia n 30 days ago; Other: quit 2017; entered on: 07/16/20 Sex
--- OUTSIDE RECORDS SUMMARY | 2022-06-02 08:34 | XMS_ITS | Continuity of Care Document ---
:1960 Author Organization [facility] Address [address] [place] [address]- Care Team Providers Name Role Phone Sheryl MAHER, Christian Orozco Primary Care Physician Encounter [facility] Date(s): 06/12/19 - 07/19/19 [facility] [address] [place] [address]- [facility] Attending Physician: Not on Staff, Attending MD Allergies, Adverse Reactions, Alerts Substance Reaction Severity Status OxyCONTIN rash welts Active Immunizations Given and Recorded Vaccine Date Status Refusal Reason influenza virus vaccine, inactivated 05/16/18 Recorded tetanus/diphtheria/pertussis, [...] 60 mg, 3, capsule, By Mouth, Daily, DOSE INCREASE, STOP EFFEXOR, # 90 capsule, Refills 2, Tot. Refills 2, Maintenance, 04/24/19 16:16:44 EDT, Route to Pharmacy Electronically, [id number], [facility] Start Date: 04/24/19 Status: OrderedQUEtiapine 100 mg oral tablet See Instructions, # 30 Unknown, Refills 2 Tot. Refills 2, TAKE ONE TABLET BY MOUTH AT BEDTIME, [facility] # 50 Start Date: 04/12/19 Status: OrderedRestasis 0.05% ophthalmic emulsion 1 drops, [...] headaches(Confirmed)1 Active H/O colonoscopy(Confirmed)2 Active Hypercholesterolemia(Confirmed) Active Insomnia(Confirmed) Active Irritable bowel syndrome Active (IBS)(Confirmed)3 Failed back syndrome of lumbar Active spine(Confirmed)[address] FischerMfmqil3Zfaecvnoeyk [address] Sánchez negative by patient report.3Followed by Dr. SánchezPjgpucer9Odgovwov by Dr. Ford at [place] [facility]. Social History Social History Type Response Smoking Status Current every day smoker; Ot her: Three-quarter pack cigarettes daily; entered on: 04/25/18 Sex
--- OUTSIDE RECORDS SUMMARY | 2022-06-02 08:34 | XMS_ITS | Continuity of Care Document ---
:1960 Author Organization [facility] Address [address] [place] [address] Drive [address] [place] [address]- Care Team Providers Name Role Phone Christian Saucedo MD Primary Care Physician Encounter [facility] [place] Date(s): 01/20/21 - 01/27/[address] [place] [address]- Attending Physician: Vladislav Pascual MD Referring Physician: Christian Saucedo MD Allergies, Adverse [...] 09/22/20 7:56:00 EST, Route to Pharmacy Electronically, [facility] # [facility], 165, cm, 07/16/20 8:26:00 EST, Height Start Date: 09/22/20 Status: OrderedQUEtiapine 50 mg oral tablet 1 tablet = 50 mg, By Mouth, Daily, # 30 tablet, 5 Refills, Maintenance, 11/04/20 11:23:00 EDT, Tablet, [facility] # [facility], 165, cm, 10/23/20 [...] of tobacco use(Confirmed) Active 1Followed by Dr. FischerDmyfci6Vqtfovkarwl [address] Sánchez negative by patient report.3Followed by Dr. SánchezKgmtlqjo1Ukjepghp by Dr. Ford at [place]. Vital Signs Most recent to oldest [Reference Range]: 1 Height 165 cm (01/20/21 11:55 AM) Social History Social History Type Response Smoking Status Former smoker, quit more letitia n 30 days ago; Other: quit 2017; entered on: 07/16/20 Sex
--- OUTSIDE RECORDS SUMMARY | 2022-06-02 08:34 | XMS_ITS | Continuity of Care Document ---
:1960 Author Organization [facility] Address [address] [place] [address]- Care Team Providers Name Role Phone Sheryl MAHER, Christian Orozco Primary Care Physician Encounter [place] Date(s): 03/07/20 - 04/06/20 [facility] [address] [place] [address]- [facility] Allergies, Adverse Reactions, Alerts Substance Reaction Severity [...] DECREASE, # 30 tablet, 2 Refills, Maintenance, 03/03/20 10:53:00 EDT, Tablet, [facility], 165, cm, 02/11/20 11:33:00 EDT, Height Start Date: 03/03/20 Status: OrderedRestasis 0.05% ophthalmic emulsion 1 drops, Eyes, Both, Every 12 hours, # 30 each, 0 Refills, Maintenance, 01/05/19 10:42:05 EDT Start Date: 01/05/19 Status: OrderedVicodin 5 mg-300 mg oral tablet [...] of tobacco use(Confirmed) Active 1Followed by Dr. FischerVaethy2Uvthjixvwoa [address] Sánchez negative by patient report.3Followed by Dr. SánchezJqwirqfv2Rgwkznbq by Dr. Ford at [place] [facility]. Social History Social History Type Response Smoking Status Current every day smoker; Ot her: Three-quarter pack cigarettes daily; entered on: 04/25/18 Sex
--- OUTSIDE RECORDS SUMMARY | 2022-06-02 08:34 | XMS_ITS | Continuity of Care Document ---
:1960 Author Organization [facility] Address [address] [place] [address]- Care Team Providers Name Role Phone Sheryl MAHER, Christian Orozco Primary Care Physician [place] [facility] [place] - 02/01/[address] [address] Discharge Disposition: A-D/C Home Attending Physician: Twila Ware MD Admitting Physician: Twila Ware MD Referring Physician: Not on Staff, Referring MD Allergies, Adverse Reactions, Alerts Substance Reaction Severity Status OxyCONTIN rash welts Active CeleBREX Active Immunizations Given and Recorded Vaccine Date Status Refusal Reason SARS-CoV-2 (COVID-19) mRNA-1273 vaccine 10/14/20 Recorded SARS-CoV-2 (COVID-19) mRNA-1273 vaccine 09/16/20 Recorded influenza virus vaccine, inactivated 05/21/20 Given influenza virus vaccine, inactivated 08/06/19 Given influenza virus vaccine, inactivated 05/16/18 Recorded tetanus/diphtheria/pertussis, acel(Tdap) 09/09/14 Recorde d Medications acetaminophen 325 mg oral tablet 650 mg, By Mouth, Every 4 hours, PRN, for 7 days, If patient has not received Oxycodone/Acetaminophen (Percocet-5) in PACU, # 84 tablet, Refills 0, Tot. Refills 0, Acute 02/08/21 8:31:00 EDT, Pain , Mild, 02/01/21 8:31:00 EDT, Route to Pharmacy Electr... Start Date: 02/01/21 Stop Date: 02/08/21 Status: Orderedatorvastatin 10 mg oral tablet 1 tablet = 10 mg, By Mouth, Daily, # 30 tablet, 5 Refills, Maintenance, 12/31/20 9:41:00 EDT, Tablet, [facility] # [facility], 165, cm, 12/02/20 8:00:00 EDT, Height Start Date: 12/31/20 Status: Ordereddicyclomine 10 mg oral capsule 1 capsule = 10 mg, By Mouth, 4 times a day, # 28 capsule, 0 Refills, Maintenance, 01/05/19 10:43:39 EDT, Capsule Start Date: 01/05/19 Stop Date: 01/12/19 Status: OrderedLorazepam 0 Refills, Maintenance, 04/02/16 16:07:36 Start Date: 04/02/16 Status: OrderedoxyCODONE 5 mg oral tablet 5 mg, Tablet, By Mouth, Every 4 hours, PRN for Pain , Severe, Routine, 01/29/21 21:19:00 EDT Start Date: 01/29/21 Stop Date: 02/01/21 Status: DiscontinuedoxyCODONE 5 mg oral tablet 5 mg, 1, tablet, By Mouth, Every 4 hours, PRN, for 3 days, # 10 tablet, Refills 0, Tot. Refills 0, Acute 02/04/21 8:32:00 EDT, Pain , Severe, 02/01/21 8:32:00 EDT, Route to Pharmacy Electronically, [facility] # [facility], Partial fill upon patient reques... Start Date: 02/01/21 Stop Date: 02/04/21 Status: Orderedpropranolol 60 mg oral capsule, extended [...] 09/22/20 7:56:00 EST, Route to Pharmacy Electronically, [facility] # [facility], 165, cm, 07/16/20 8:26:00 EST, Height Start Date: 09/22/20 Status: OrderedQUEtiapine 50 mg oral tablet 1 tablet = 50 mg, By Mouth, Daily, # 30 tablet, 5 Refills, Maintenance, 11/04/20 11:23:00 EDT, Tablet, [facility] # [facility], 165, cm, 10/23/20 9:41:00 EDT, Height Start Date: 11/04/20 Status: OrderedRestasis 0.05% ophthalmic emulsion 1 drops, Eyes, Both, Every 12 hours, # 30 each, 0 Refills, Maintenance, 01/05/19 10:42:05 EDT Start Date: 01/05/19 Status: Orderedsulfamethoxazole-trimethoprim 800 mg-160 mg oral tablet 1 tablet, By Mouth, 2 times a day, for 5 days, # 10 tablet, 0 Refills, Acute 02/06/21 8:32:00 EDT, 02/01/21 8:32:00 EDT, Tablet, [facility] # [facility], Partial fill upon patient request if the prescription is for a schedule II opioid drug., 1 tablet By... Start Date: 02/01/21 Stop Date: 02/06/21 Status: OrderedTopiramate = 100 mg, By Mouth, 0 Refills, Maintenance, 01/02/21 11:31:00 EDT, Partial fill upon patient requestif the prescription is for a schedule II opioid drug. Start Date: 01/02/21 Status: OrderedTylenol 325 mg oral tablet 650 mg, Tablet, By Mouth, 02/01/21 8:00:00 EDT Start Date: 02/01/21 Stop Date: 02/01/21 Status: Completed Problem List Condition Effective Dates Status Health Status Informant Benign hypertension(Confirmed) Active Low vitamin D level(Confirmed) Active Hx of migraine headaches(Confirmed)1 Active H/O colonoscopy(Confirmed)2 Active Hypercholesterolemia(Confirmed) Active BMI 29.0-29.9,adult(Confirmed) Active Insomnia(Confirmed) Active Irritable bowel syndrome Active (IBS)(Confirmed)3 Failed back syndrome of lumbar Active spine(Confirmed)4 History of tobacco use(Confirmed) Active 1Followed by Dr. FischerTqieas0Swiqpwbvuhb [address] Sánchez negative by patient report.3Followed by Dr. SánchezSwhoxtnv4Zhwvgbvy by Dr. Ford at [facility]. Results Orders for Microbiology Reports Name Date Anaerobic Culture (ANAEROBIC CULTURE) 01/30/21 Tissue Culture w/ Gram Smear (TISSUE/BIOPSY CULT.) 01/07 12/26 Microbiology Reports TEST:Anaerobic Culture STATUS:Auth (Verified) BODY SITE: SOURCE:WOUND COLLECTED DATE/TIME:01/30/21 10:38 AMAnaerobic Culture SPECIMEN DESCRIPTION : WOUND LEFT HAND WOUND DEEP CULTURE SPECIAL REQUESTS : NONE CULTURE : NO ANAEROBES ISOLATED REPORT STATUS : FINAL 02/01/2021TEST:Tissue/Biopsy Culture STATUS:Auth (Verified) BODY SITE: SOURCE:WOUND COLLECTED DATE/TIME:01/30/21 10:38 AMTissue/Biopsy Culture SPECIMEN DESCRIPTION : WOUND LEFT HAND WOUND DEEP CULTURE SPECIAL REQUESTS : NONE GRAM STAIN : NO CELLS OR ORGANISMS SEEN CULTURE : 1+ GROUP B BETA HEMOLYTIC STREPTOCOCCI ISOLATED. SUSCEPTIBILITY TESTING NOT ROUTINELY PERFORMED ON THIS ISOLATE. Please consult the laboratory ([phone]) within 7 days if more definitive studies are clinically indicated. REPORT STATUS : FINAL 02/01/2021 Vital Signs Most recent to oldest 1 2 3 [Reference Range]: Oxygen Saturation [94-100 %] 98 % 99 % 98 % (02/01/21 11:29 AM) (02/01/21 7:39 AM) (02/01/21 3: 30 AM) Pulse Rate [55-90 bpm] 55 bpm 55 bpm 62 bpm (02/01/21 11:29 AM) (02/01/21 7:39 AM) (02/01/21 3: 30 AM) Blood Pressure [90-138/55-84 131/75 mm Hg 135/75 mm Hg 155 /86 mm Hg mm Hg] (02/01/21 11:29 AM) (02/01/21 7:39 AM) *H* (02/01/21 3:30 AM ) Respiratory Rate [16-30 18 br/min 18 br/min 18 br/mi n br/min] (02/01/21 11:48 AM) (02/01/21 11:29 AM) (02/01/21 9 :08 AM) Temperature [96.8-100.4 DegF] 98.1 DegF 97.9 DegF 98 .1 DegF (02/01/21 11:29 AM) (02/01/21 7:39 AM) (02/01/21 3: 30 AM) Mode of Delivery (Oxygen) Room air Room air Room a ir (02/01/21 11:29 AM) (02/01/21 7:39 AM) (02/01/21 3: 30 AM) Blood pressure sites Arm, right Arm, right Arm, right (02/01/21 11:29 AM) (02/01/21 7:39 AM) (02/01/21 3: 30 AM) Temperature Route Oral Oral Oral (02/01/21 11:29 AM) (02/01/21 7:39 AM) (02/01/21 3: 30 AM) Social History Social History Type Response Smoking Status Former smoker, quit more letitia n 30 days ago; Other: quit 2017; entered on: 07/16/20 Sex
--- OUTSIDE RECORDS SUMMARY | 2022-06-02 08:34 | XMS_ITS | Continuity of Care Document ---
:1960 Author Organization [facility] Address [address] [place] [address]- Care Team Providers Name Role Phone Sheryl MAHER, Christian Orozco Primary Care Physician Encounter [facility] Date(s): 02/17/20 - 03/18/20 [facility] [address] [place] [address]- [facility] Allergies, Adverse Reactions, Alerts Substance Reaction [...] 08/06/19 9:43:00 EST, Route to Pharmacy Electronically, [facility], 165, cm, 08/06/19 9:21:00 EST, Height Start Date: 08/06/19 Status: OrderedQUEtiapine 50 mg oral tablet 1 tablet = 50 mg, By Mouth, Daily, DOSAGE DECREASE, # 30 tablet, 2 Refills, Maintenance, 03/03/20 10:53:00 EDT, Tablet, [facility] # [facility], 165, cm, [...] of tobacco use(Confirmed) Active 1Followed by Dr. FischerNnqsqp3Ponscqltdoe [address] Sánchez negative by patient report.3Followed by Dr. SánchezLxxxuixx4Tiunueay by Dr. Ford at [facility]. Social History Social History Type Response Smoking Status Current every day smoker; Ot her: Three-quarter pack cigarettes daily; entered on: 04/25/18 Sex
--- OUTSIDE RECORDS SUMMARY | 2022-06-02 08:34 | XMS_ITS | Continuity of Care Document ---
:1960 Author Organization [facility] Address [address] [place] [address]- Care Team Providers Name Role Phone Christian Saucedo MD Primary Care Physician Encounter [facility] Date(s): 03/30/19 - 07/28/19 [facility] [address] [place] [address]- [facility] Attending Physician: Kelley Wilson NP Referring Physician: Christain Saucedo MD Allergies, Adverse Reactions, Alerts Substance [...] 04/24/19 16:16:44 EDT, Route to Pharmacy Electronically, [id number], [facility] Start Date: 04/24/19 Status: OrderedQUEtiapine 100 mg oral tablet See Instructions, # 30 Unknown, Refills 2 Tot. Refills 2, TAKE ONE TABLET BY MOUTH AT BEDTIME, [facility] Start Date: 04/12/19 Status: OrderedRestasis [...] of lumbar Active spine(Confirmed)[address] FischerHlhyar8Xvywubiazgn [address] Sánchez negative by patient report.3Followed by Dr. SánchezFmfwzgce3Nisvxblo by Dr. Ford at [facility]. Social History Social History Type Response Smoking Status Current every day smoker; Ot her: Three-quarter pack cigarettes daily; entered on: 04/25/18 Sex
--- OUTSIDE RECORDS SUMMARY | 2022-06-02 08:34 | XMS_ITS | Continuity of Care Document ---
:1960 Author Organization [facility] Address [address] [place] [address]- Care Team Providers Name Role Phone Sheryl MAHER, Christian Orozco Primary Care Physician [place] [facility] [place] 07/15/20 - 08/15/20 [facility] [address] [place] [address]- Attending Physician: Not on Staff, Attending MD [...] of tobacco use(Confirmed) Active 1Followed by Dr. FischerVtyfyo6Bbuxvlksskr [address] Sánchez negative by patient report.3Followed by Dr. SánchezRghkxxvv3Fhbirphh by Dr. Ford at [facility]. Social History Social History Type Response Smoking Status Former smoker, quit more letitia n 30 days ago; Other: quit 2017; entered on: 07/16/20 Sex
--- OUTSIDE RECORDS SUMMARY | 2022-06-02 08:34 | XMS_ITS | Continuity of Care Document ---
:1960 Author Organization [facility] Address [address] [place] [address]- Care Team Providers Name Role Phone Sheryl MAHER, Christian Orozco Primary Care Physician [place] [facility] [place]21 [facility] [address] [place] [address]- Allergies, Adverse Reactions, Alerts Substance Reaction Severity [...] 03/27/21 16:22:00 EDT, Route to Pharmacy Electronically, [facility] # [facility], 165, cm, 02/10/21 14:46:00 EDT, Height, 85.5, kg, 01/08/21 8:32:00 EDT, Dry Weight Start Date: 03/27/21 Status: OrderedQUEtiapine 50 mg oral tablet 1 tablet = 50 mg, By Mouth, Daily, # 30 tablet, 5 Refills, Maintenance, 11/04/20 11:23:00 EDT, Tablet, [facility] # [facility], 165, cm, 10/23/20 [...] of tobacco use(Confirmed) Active 1Followed by Dr. FischerEjhyrs2Qaxhvgiqftx [address] Sánchez negative by patient report.3Followed by Dr. SánchezSygivssr7Vhihtzue by Dr. Ford at [facility]. Social History Social History Type Response Smoking Status Former smoker, quit more letitia n 30 days ago; Other: quit 2017; entered on: 07/16/20 Sex
--- OUTSIDE RECORDS SUMMARY | 2022-06-02 08:34 | XMS_ITS | Continuity of Care Document ---
:1960 Author Organization [facility] Address [address] [place] [address]- Care Team Providers Name Role Phone Christian Saucedo MD Primary Care Physician [place] [facility] [place] 12/29/21 - 01/05/22 [facility] [address] [place] [address]- Encounter Diagnosis Failed back syndrome of lumbar spine (Discharge Diagnosis) - 12/29/21 Hx of migraine headaches (Discharge Diagnosis) - 12/29/21 Irritable bowel syndrome (IBS) (Discharge Diagnosis) - 12/29/21 History of tobacco use (Discharge Diagnosis) - 12/29/21 Attending Physician: Christian Saucedo MD Allergies, Adverse Reactions, Alerts Substance Reaction Severity Status OxyCONTIN rash welts Active CeleBREX Active Immunizations Given and Recorded Vaccine Date Status Refusal Reason SARS-CoV-2 (COVID-19) mRNA-1273 vaccine 08/04/21 Recorded SARS-CoV-2 (COVID-19) mRNA-1273 vaccine 10/14/20 Recorded SARS-CoV-2 (COVID-19) mRNA-1273 vaccine 09/16/20 Recorded influenza virus vaccine, inactivated1 06/29/21 Given influenza virus vaccine, inactivated 05/21/20 Given influenza virus vaccine, inactivated 08/06/19 Given influenza virus vaccine, inactivated 06/19/18 Recorded influenza virus vaccine, inactivated 05/16/18 Recorded tetanus/diphtheria/pertussis, acel(Tdap) 09/09/14 Recorde d 1Result Comment: [facility]# ON THE [address] 56495-884-76 Medications acetaminophen-HYDROcodone 325 mg-5 mg oral tablet 1 tablet, By Mouth, Every 6 hours, PRN as needed for pain, 0 Refills, Maintenance, 12/29/21 11:54:00EDT, Tablet, Partial fill upon patient request if the prescription is for a schedule II opioid drug. Start Date: 12/29/21 Status: OrderedAleve 220 mg oral capsule 1 capsule = 220 mg, By Mouth, Every 12 hours, 0 Refills, Maintenance, 12/29/21 11:56:00 EDT, Partialfill upon patient request if the prescription is for a schedule II opioid drug. Start Date: 12/29/21 Status: Orderedatorvastatin 10 mg oral tablet See Instructions, TAKE ONE TABLET BY MOUTH EVERY DAY, # 90 Unknown, 1 Refills, [facility], 165, cm, 11/12/21 15:18:00 EDT, Height, 85.5, kg, 01/08/21 8:32:00 EDT, Dry Weight Start Date: 12/26/21 Status: OrderedCentrum Silver By Mouth, Daily, 0 Refills, Maintenance, 12/29/21 11:56:00 EDT, Partial fill upon patient request ifthe prescription is for a schedule II opioid drug. Start Date: 12/29/21 Status: Ordereddicyclomine 10 mg oral capsule 1 [...] capsule, Refills 5, Tot. Refills 5, Maintenance, 06/29/21 13:27:00 EST, Route to Pharmacy Electronically, [facility] # [facility], 165, cm, 06/29/21 13:22:00 EST, Height, 85.5, kg, 01/08/21 8:32:00 EDT, Dry Weight Start Date: 06/29/21 Status: OrderedQUEtiapine 50 mg oral tablet See Instructions, TAKE ONE TABLET BY MOUTH EVERY DAY, # 90 tablet, 1 Refills, [facility], 165, cm, 11/12/21 15:18:00 EDT, Height, 85.5, kg, 01/08/21 8:32:00 EDT, Dry Weight Start Date: 12/26/21 Status: OrderedRestasis 0.05% ophthalmic emulsion 1 drops, Eyes, Both, Every 12 hours, # 30 each, 0 Refills, Maintenance, 01/05/19 10:42:05 EDT Start Date: 01/05/19 Status: OrderedTopiramate = 100 mg, By Mouth, 0 Refills, Maintenance, 01/02/21 11:31:00 EDT, Partial fill upon patient requestif the prescription is for a schedule II opioid drug. Start Date: 01/02/21 Status: OrderedWellbutrin XL 150 mg/24 hours oral tablet, extended release 1 tablet = 150 mg, By Mouth, Every 24 hours, # 30 tablet, 5 Refills, Maintenance, 12/29/21 12:12:00 EDT, ER Tablet, [facility], Partial fill upon patient request if the prescription is for a schedule II opioid drug., 165, cm, 12/29/21 11:41:0... Start Date: 12/29/21 Status: Ordered Problem List Condition Effective Dates Status Health Status Informant Benign hypertension(Confirmed) Active Low vitamin D level(Confirmed) Active Hx of migraine headaches(Confirmed)1 Active H/O colonoscopy(Confirmed)2 Active Hypercholesterolemia(Confirmed) Active BMI 29.0-29.9,adult(Confirmed) Active Insomnia(Confirmed) Active Irritable bowel syndrome Active (IBS)(Confirmed)3 Failed back syndrome of lumbar Active spine(Confirmed)4 Obese class I(Confirmed) Active History of tobacco use(Confirmed) Active 1Followed by Dr. FischerTnrrpb4Lhygvdhxtby [address] Sánchez negative by patient report.3Followed by Dr. SánchezGnnkiwxe9Vyzrzudv by Dr. Ford at [facility]. Diagnosis Diagnosis Type Effective Dates Health Status Clinical In formant Service Failed back Discharge 12/29/21 syndrome of Diagnosis lumbar spine Hx of migraine Discharge 12/29/21 headaches Diagnosis Irritable bowel Discharge 12/29/21 syndrome (IBS) Diagnosis History of Discharge 12/29/21 tobacco use Diagnosis Vital Signs Most recent to oldest [Reference Range]: 1 Height 165 cm (12/29/21 11:41 AM) Weight 84.4 kg (12/29/21 11:41 AM) Oxygen Saturation [94-100 %] 96 % (12/29/21 11:41 AM) Pulse Rate [55-90 bpm] 65 bpm (12/29/21 11:41 AM) Body Mass Index [18.5-24.99] 31 *>HHI* (12/29/21 11:41 AM) Blood Pressure [90-138/55-84 mm Hg] 130/80 mm Hg (12/29/21 11:41 AM) Mode of Delivery (Oxygen) Room air (12/29/21 11:41 AM) Blood pressure sites Arm, left (12/29/21 11:41 AM) Weight Obtained Via Standing scale (12/29/21 11:41 AM) Social History Social History Type Response Smoking Status Former smoker, quit more letitia n 30 days ago; Other: quit 2017; entered on: 07/16/20 Sex
--- OUTSIDE RECORDS SUMMARY | 2022-06-02 08:34 | XMS_ITS | Continuity of Care Document ---
:1960 Author Organization [facility] Adult Address [address] [place] [address]- Care Team Providers Name Role Phone Sheryl MAHER, Christian Orozco Primary Care Physician [place] [facility] [place] 11/17[place]21 - 12/17/21 [facility] [address] [place] [address]- Allergies, Adverse Reactions, Alerts Substance Reaction Severity Status OxyCONTIN rash welts Active CeleBREX Active Immunizations Given and Recorded Vaccine Date Status Refusal Reason influenza virus vaccine, inactivated1 06/29/21 Given influenza virus vaccine, inactivated 05/21/20 Given influenza virus vaccine, inactivated 08/06/19 Given influenza virus vaccine, inactivated 06/19/18 Recorded influenza virus vaccine, inactivated 05/16/18 Recorded SARS-CoV-2 (COVID-19) mRNA-1273 vaccine 10/14/20 Recorded SARS-CoV-2 (COVID-19) mRNA-1273 vaccine 09/16/20 Recorded tetanus/diphtheria/pertussis, acel(Tdap) 09/09/14 Recorde d 1Result Comment: [facility]# ON THE [address] [phone] Medications atorvastatin 10 mg oral tablet 1 tablet = 10 mg, By Mouth, Daily, # 90 tablet, 1 Refills, Maintenance, 06/29/21 13:27:00 EST, Tablet, [facility], 165, cm, 06/29/21 13:22:00 EST, Height, 85.5, kg, 01/08/21 8:32:00 EDT, Dry Weight Start Date: 06/29/21 Status: Ordereddicyclomine 10 mg oral capsule 1 [...] 06/29/21 13:27:00 EST, Route to Pharmacy Electronically, [facility] # [facility], 165, cm, 06/29/21 13:22:00 EST, Height, 85.5, kg, 01/08/21 8:32:00 EDT, Dry Weight Start Date: 06/29/21 Status: OrderedQUEtiapine 50 mg oral tablet 1 tablet = 50 mg, By Mouth, Daily, # 90 tablet, 1 Refills, 06/29/21 13:27:00 EST, [facility] # [facility], 165, cm, 06/29/21 13:22:00 EST, Height, 85.5, kg, 01/08/21 8:32:00 EDT, Dry Weight Start Date: 06/29/21 Status: OrderedRestasis 0.05% ophthalmic emulsion 1 drops, [...] of tobacco use(Confirmed) Active 1Followed by Dr. FischerMgvlty0Knpjgadzimq [address] Sánchez negative by patient report.3Followed by Dr. SánchezLidozaax6Hooojdtt by Dr. Ford at [facility]. Social History Social History Type Response Smoking Status Former smoker, quit more letitia n 30 days ago; Other: quit 2017; entered on: 07/16/20 Sex
--- OUTSIDE RECORDS SUMMARY | 2022-06-02 08:34 | XMS_ITS | Continuity of Care Document ---
:1960 Author Organization [facility] Address [address] [place] [address]- Care Team Providers Name Role Phone Christian Saucedo MD Primary Care Physician [place] [facility] [place] 05[place]14[place]20 - 05/21/20 [facility] [address] [place] [address]- [place] Encounter Diagnosis Depression (Discharge Diagnosis) - 05/14/20 Attending Physician: Christian Saucedo MD Allergies, Adverse [...] EDT, Route to Pharmacy Electronically, [facility], 165, cm, 02/11/20 11:33:00 EDT, Height Start Date: 03/30/20 Status: OrderedQUEtiapine 50 mg oral tablet 1 tablet = 50 mg, By Mouth, Daily, DOSAGE DECREASE, # 30 tablet, 2 Refills, Maintenance, 03/03/20 10:53:00 EDT, Tablet, [facility] # [facility], 165, cm, 02/11/20 11:33:00 [...] of tobacco use(Confirmed) Active 1Followed by Dr. FischerVcpdiy1Fuuhvsfajrs [address] Sánchez negative by patient report.3Followed by Dr. SánchezVvgrdsuj1Lpfjumwn by Dr. Ford at [facility]. Diagnosis Diagnosis Type Effective Dates Health Status Clinical Serv ice Informant Depression Discharge 05/14/20 Diagnosis Vital Signs Most recent to oldest [Reference Range]: 1 Height 165 cm (05/14/20 1:09 PM) Mode of Delivery (Oxygen) Room air (05/14/20 1:09 PM) Social History Social History Type Response Smoking Status Current every day smoker; Ot her: Three-quarter pack cigarettes daily; entered on: 04/25/18 Sex
--- OUTSIDE RECORDS SUMMARY | 2022-06-02 08:34 | XMS_ITS | Continuity of Care Document ---
:1960 Author Organization [facility] [place] Address [address] [place] [address]- Care Team Providers Name Role Phone Christian Saucedo MD Primary Care Physician [place] [facility] [place] 12/29/21 - 03/03/22 [facility] [place] [address] [place] [address]- Attending Physician: Kelley Wilson NP Referring Physician: [...] tetanus/diphtheria/pertussis, acel(Tdap) 09/09/14 Recorde d 1Result Comment: [facility]# ON [facility] [address] [phone] Medications acetaminophen-HYDROcodone 325 mg-5 mg oral tablet [...] EVERY DAY, # 90 Unknown, 1 Refills, [facility], 165, cm, 11/12/21 [...] 06/29/21 13:27:00 EST, Route to Pharmacy Electronically, [facility], 165, cm, 06/29/21 13:22:00 EST, Height, 85.5, kg, 01/08/21 8:32:00 EDT, Dry Weight Start Date: 06/29/21 Status: OrderedQUEtiapine 50 mg oral tablet See Instructions, TAKE ONE TABLET BY MOUTH EVERY DAY, # 90 tablet, 1 Refills, [facility], 165, cm, 11/12/21 [...] of tobacco use(Confirmed) Active 1Followed by Dr. FischerBdvvdc5Xvfasqdvbva [address] Sánchez negative by patient report.3Followed by Dr. SánchezMfptprfb1Rlcdreef by Dr. Ford at [facility]. Social History Social History Type Response Smoking Status Former smoker, quit more letitia n 30 days ago; Other: quit 2017; entered on: 07/16/20 Sex
--- OUTSIDE RECORDS SUMMARY | 2022-06-02 08:34 | XMS_ITS | Continuity of Care Document ---
:1960 Author Organization [facility] Adult Address [address] [place] [address]- Care Team Providers Name Role Phone Sheryl MAHER, Christian Orozco Primary Care Physician [place] [facility] [place] 11/12/21 - 11/19/21 [facility] [address] [place] [address]- Attending Physician: Katie RIVAS, Kelley Estevez Allergies, Adverse Reactions, Alerts Substance Reaction Severity [...] tetanus/diphtheria/pertussis, acel(Tdap) 09/09/14 Recorde d 1Result Comment: [facility]# ON THE B[address] [phone] Medications atorvastatin 10 mg oral tablet 1 [...] 06/29/21 13:27:00 EST, Route to Pharmacy Electronically, [facility] # [facility], 165, cm, 06/29/21 13:22:00 EST, Height, 85.5, kg, 01/08/21 8:32:00 EDT, Dry Weight Start Date: 06/29/21 Status: OrderedQUEtiapine 50 mg oral tablet 1 tablet = 50 mg, By Mouth, Daily, # 90 tablet, 1 Refills, 06/29/21 13:27:00 EST, [facility] # [facility], 165, cm, 06/29/21 [...] of tobacco use(Confirmed) Active 1Followed by Dr. FischerVouysd6Hpsmxtoxixo [address] Sánchez negative by patient report.3Followed by Dr. SánchezDqlohgsv9Lreewyxm by Dr. Ford at [facility]. Vital Signs Most recent to oldest [Reference Range]: 1 Height 165 cm (11/12/21 3:18 PM) Weight 83.3 kg (11/12/21 3:18 PM) Oxygen Saturation [94-100 %] 98 % (11/12/21 3:18 PM) Pulse Rate [55-90 bpm] 66 bpm (11/12/21 3:18 PM) Body Mass Index [18.5-24.99] 30.6 *>HHI* (11/12/21 3:18 PM) Blood Pressure [90-138/55-84 mm Hg] 120/68 mm Hg (11/12/21 3:18 PM) Respiratory Rate [16-30 br/min] 16 br/min (11/12/21 3:18 PM) Mode of Delivery (Oxygen) Room air (11/12/21 3:18 PM) Blood pressure sites Arm, left (11/12/21 3:18 PM) Weight Obtained Via Standing scale (11/12/21 3:18 PM) Social History Social History Type Response Smoking Status Former smoker, quit more letitia n 30 days ago; Other: quit 2017; entered on: 07/16/20 Sex
--- OUTSIDE RECORDS SUMMARY | 2022-06-02 08:34 | XMS_ITS | Continuity of Care Document ---
:1960 Author Organization [facility] Adult Address [address] [place] [address]- Care Team Providers Name Role Phone Sheryl MAHER, Christian Orozco Primary Care Physician Encounter [facility] Date(s): 02/16/21 - 03/18/21 [facility] Adult [address] [place] [address]- Allergies, Adverse Reactions, Alerts Substance Reaction Severity [...] 09/22/20 7:56:00 EST, Route to Pharmacy Electronically, [facility] # [facility], 165, cm, 07/16/20 8:26:00 EST, Height Start Date: 09/22/20 Status: OrderedQUEtiapine 50 mg oral tablet 1 tablet = 50 mg, By Mouth, Daily, # 30 tablet, 5 Refills, Maintenance, 11/04/20 11:23:00 EDT, Tablet, [facility] # 50, 165, cm, 10/23/20 [...] of tobacco use(Confirmed) Active 1Followed by Dr. FischerGlhhsy0Hhbqwjwxvsg [address] Sánchez negative by patient report.3Followed by Dr. SánchezCivmcuxw0Utojjdni by Dr. Ford at [place] [facility]. Social History Social History Type Response Smoking Status Former smoker, quit more letitia n 30 days ago; Other: quit 2017; entered on: 07/16/20 Sex
--- OUTSIDE RECORDS SUMMARY | 2022-06-02 08:35 | XMS_ITS | Continuity of Care Document ---
:1960 Author Organization [facility] Address [address] [place] [address] Drive [address] [place] [address]- Care Team Providers Name Role Phone Sheryl MAHER, Christian Orozco Primary Care Physician [facility] Date(s): 09/13/19 - 12/02/19 [facility] [address] [place] [address]- [facility] Attending Physician: Vladislav Pascual MD Referring Physician: Kelley Wilson NP Allergies, Adverse Reactions, Alerts Substance Reaction Severity [...] 08/06/19 9:43:00 EST, Route to Pharmacy Electronically, [facility], 165, cm, 08/06/19 9:21:00 EST, Height Start Date: 08/06/19 Status: OrderedQUEtiapine 50 mg oral tablet 1 tablet = 50 mg, By Mouth, Daily, DOSAGE DECREASE, # 30 tablet, 6 Refills, Maintenance, 08/06/19 9:38:00 EST, Tablet, [facility] # [facility], 165, cm, [...] of tobacco use(Confirmed) Active 1Followed by Dr. FischerLucbgb8Mlvyrugfpku [address] Sánchez negative by patient report.3Followed by Dr. SnáchezWizygjoy2Bnblmqui by Dr. Ford at [place] [facility]. Social History Social History Type Response Smoking Status Current every day smoker; Ot her: Three-quarter pack cigarettes daily; entered on: 04/25/18 Sex
--- OUTSIDE RECORDS SUMMARY | 2022-06-02 08:35 | XMS_ITS | Continuity of Care Document ---
:1960 Author Organization [facility] Adult Address [address] [place] [address]- Care Team Providers Name Role Phone Sheryl MAHER, Christian Orozco Primary Care Physician Encounter [facility] Date(s): 11/13/21 - 12/13/21 [facility] Adult [address] [place] [address]- Allergies, Adverse Reactions, Alerts Substance Reaction Severity [...] acel(Tdap) 09/09/14 Recorde d 1Result Comment: [facility]# ON THE [address] [id number] Medications atorvastatin 10 mg oral tablet 1 [...] Route to Pharmacy Electronically, [facility] # [facility], 165, cm, 06/29/21 13:22:00 EST, Height, 85.5, kg, 01/08/21 8:32:00 EDT, Dry Weight Start Date: 06/29/21 Status: OrderedQUEtiapine 50 mg oral tablet 1 tablet = 50 mg, By Mouth, Daily, # 90 tablet, 1 Refills, 06/29/21 13:27:00 EST, [facility] # 50, 165, cm, 06/29/21 13:22:00 [...] of tobacco use(Confirmed) Active 1Followed by Dr. FischerStbrom3Laiqsevrmhs [address] Sánchez negative by patient report.3Followed by Dr. SánchezJsdeyeek7Nricvrhu by Dr. Ford at [place] [facility]. Social History Social History Type Response Smoking Status Former smoker, quit more letitia n 30 days ago; Other: quit 2017; entered on: 07/16/20 Sex
--- OUTSIDE RECORDS SUMMARY | 2022-06-02 08:35 | XMS_ITS | Continuity of Care Document ---
:1960 Author Organization [facility] Adult Address [address] [place] [address]- Care Team Providers Name Role Phone Christian Saucedo MD Primary Care Physician Encounter [facility] Date(s): 12/02/20 - 12/09/20 [facility] Adult [address] [place] [address]- Encounter Diagnosis Rib fracture (Discharge Diagnosis) - 12/02/20 Attending Physician: Kelley Wilson NP Referring Physician: [...] of tobacco use(Confirmed) Active 1Followed by Dr. FischerDuuszb3Xfqrhpsuqzg [address] Sánchez negative by patient report.3Followed by Dr. SánchezXnpjeuup6Ndhpjujn by Dr. Ford at [place] [facility]. Diagnosis Diagnosis Type Effective Dates Health Status Clinical In formant Service Rib fracture Discharge 12/02/20 Diagnosis Vital Signs Most recent to oldest [Reference Range]: 1 Height 165 cm (12/02/20 8:00 AM) Social History Social History Type Response Smoking Status Former smoker, quit more letitia n 30 days ago; Other: quit 2017; entered on: 07/16/20 Sex
--- OUTSIDE RECORDS SUMMARY | 2022-06-02 08:35 | XMS_ITS | Continuity of Care Document ---
:1960 Author Organization [facility] Adult Address [address] [place] [address]- Care Team Providers Name Role Phone Christian Saucedo MD Primary Care Physician Encounter [facility] [place] Date(s): 05/21/20 - 05/28/20 [facility] Adult [address] [place] [address]- [facility] Attending Physician: Kelley Wilson NP Referring Physician: [...] 2 Refills, Maintenance, 03/03/20 10:53:00 EDT, Tablet, [facility], 165, cm, [...] of tobacco use(Confirmed) Active 1Followed by Dr. FischerHtyscq0Sccqffzujed [address] Sánchez negative by patient report.3Followed by Dr. SánchezCoxxxcni7Gzgumyto by Dr. Ford at [place] [facility]. Social History Social History Type Response Smoking Status Current every day smoker; Ot her: Three-quarter pack cigarettes daily; entered on: 04/25/18 Sex
--- OUTSIDE RECORDS SUMMARY | 2022-06-02 08:35 | XMS_ITS | Continuity of Care Document ---
:1960 Author Organization [facility] Address [address] [place] [address] Drive [address] [place] [address]- Care Team Providers Name Role Phone Christian Saucedo MD Primary Care Physician Encounter [facility] Date(s): 03/22/20 - 07/20/[address] [place] [address]- Attending Physician: Vladislav Pascual MD Referring Physician: [...] 03/30/20 9:15:00 EDT, Route to Pharmacy Electronically, [facility], 165, martin, 02/11/20 11:33:00 EDT, Height Start Date: 03/30/20 Status: OrderedQUEtiapine 50 mg oral tablet 1 tablet = 50 mg, By Mouth, Daily, DOSAGE DECREASE, # 30 tablet, 2 Refills, Maintenance, 06/06/20 13:23:00 EDT, Tablet, [facility] # [facility], 165, [...] of tobacco use(Confirmed) Active 1Followed by Dr. FischerViycqm9Qkohchvlqmi [address] Sánchez negative by patient report.3Followed by Dr. SánchezLdaowsem8Hvigkqyf by Dr. Ford at [place] [facility]. Social History Social History Type Response Smoking Status Former smoker, quit more letitia n 30 days ago; Other: quit 2017; entered on: 07/16/20 Sex
--- OUTSIDE RECORDS SUMMARY | 2022-06-02 08:35 | XMS_ITS | Continuity of Care Document ---
:1960 Author Organization [facility] Adult Address [address] [place] [address]- Care Team Providers Name Role Phone Sheryl MAHER, Christian Orozco Primary Care Physician [facility]counter [facility] Date(s): 12/30/21 - 01/29/22 [facility] Adult [address] [place] [address]- Allergies, Adverse Reactions, Alerts Substance Reaction Severity [...] tetanus/diphtheria/pertussis, acel(Tdap) 09/09/14 Recorde d 1Result Comment: [facility]# [address] [phone] Medications acetaminophen-HYDROcodone 325 mg-5 mg oral tablet [...] 90 Unknown, 1 Refills, [facility] # 50, 165, cm, 11/12/21 15:18:00 [...] 90 tablet, 1 Refills, [facility] # 50, 165, cm, 11/12/21 15:18:00 [...] of tobacco use(Confirmed) Active 1Followed by Dr. FischerFsgtcr5Epfkqkgkqjg [address] Sánchez negative by patient report.3Followed by Dr. SánchezYfirjzvz1Qgobzjvc by Dr. Ford at [place] [facility]. Social History Social History Type Response Smoking Status Former smoker, quit more letitia n 30 days ago; Other: quit 2017; entered on: 07/16/20 Sex
--- OUTSIDE RECORDS SUMMARY | 2022-06-02 08:35 | XMS_ITS | Continuity of Care Document ---
:1960 Author Organization [facility] Adult Address [address] [place] [address]- Care Team Providers Name Role Phone Christian Saucedo MD Primary Care Physician Encounter [facility] Date(s): 11/26/20 - 12/26/20 [facility] [address] [place] [address]- Allergies, Adverse Reactions, Alerts Substance Reaction Severity [...] 7:56:00 EST, Route to Pharmacy Electronically, [facility] # [facility], 165, cm, 07/16/20 8:26:00 EST, Height Start Date: 09/22/20 Status: OrderedQUEtiapine 50 mg oral tablet 1 tablet = 50 mg, By Mouth, Daily, # 30 tablet, 5 Refills, Maintenance, 11/04/20 11:23:00 EDT, Tablet, [facility] [...] of tobacco use(Confirmed) Active 1Followed by Dr. FischerIepwti8Zsynqcqbquv [address] Sánchez negative by patient report.3Followed by Dr. SánchezRehxehgh4Guvwnrqb by Dr. Ford at [place] [facility]. Social History Social History Type Response Smoking Status Former smoker, quit more letitia n 30 days ago; Other: quit 2017; entered on: 07/16/20 Sex
--- OUTSIDE RECORDS SUMMARY | 2022-06-02 08:35 | XMS_ITS | Continuity of Care Document ---
:1960 Author Organization [facility] Adult Address [address] [place] [address]- Care Team Providers Name Role Phone Christian Saucedo MD Primary Care Physician Encounter [facility] Date(s): 06/29/21 - 07/06/21 [facility] Adult [address] [place] [address]- Attending Physician: Christian Saucedo MD Allergies, Adverse [...] acel(Tdap) 09/09/14 Recorde d 1Result Comment: [facility]# ON [address] [id number] Medications atorvastatin 10 mg oral tablet 1 [...] 06/29/21 13:27:00 EST, Route to Pharmacy Electronically, [facility] # [facility], 165, cm, 06/29/21 13:22:00 EST, Height, 85.5, kg, 01/08/21 8:32:00 EDT, Dry Weight Start Date: 06/29/21 Status: OrderedQUEtiapine 50 mg oral tablet 1 tablet = 50 mg, By Mouth, Daily, # 90 tablet, 1 Refills, 06/29/21 13:27:00 EST, [facility] # [facility], [...] of tobacco use(Confirmed) Active 1Followed by Dr. FischerFxiuvj3Ngossziodba [address] Sánchez negative by patient report.3Followed by Dr. SánchezIyccwrrh5Mqbbufvu by Dr. Ford at [place] [facility]. Vital Signs Most recent to oldest [Reference Range]: 1 2 Height 165 cm 165 cm (06/29/21 1:22 PM) (06/29/21 1:06 PM) Weight 84.9 kg (06/29/21 1:06 PM) Oxygen Saturation [94-100 %] 99 % (06/29/21 1:06 PM) Pulse Rate [55-90 bpm] 62 bpm (06/29/21 1:06 PM) Body Mass Index [18.5-24.99] 31.18 *>HHI* (06/29/21 1:06 PM) Blood Pressure [90-138/55-84 mm Hg] 120/72 mm Hg 142/ 80 mm Hg (06/29/21 1:22 PM) *H* (06/29/21 1:06 PM) Temperature [96.8-100.4 DegF] 98.7 DegF (06/29/21 1:06 PM) Mode of Delivery (Oxygen) Room air (06/29/21 1:06 PM) Blood pressure sites Arm, right Arm, right (06/29/21 1:22 PM) (06/29/21 1:06 PM) Temperature Route Oral (06/29/21 1:06 PM) Weight Obtained Via Standing scale (06/29/21 1:06 PM) Social History Social History Type Response Smoking Status Former smoker, quit more letitia n 30 days ago; Other: quit 2017; entered on: 07/16/20 Sex
--- OUTSIDE RECORDS SUMMARY | 2022-06-02 08:35 | XMS_ITS | Continuity of Care Document ---
:1960 Author Organization [facility] Adult Address [address] [place] [address]- Care Team Providers Name Role Phone Christian Saucedo MD Primary Care Physician Encounter [facility] Date(s): 02/11/20 - 02/18/20 [facility] Adult [address] [place] [address]- [facility] Encounter Diagnosis Depression (Discharge Diagnosis) - 02/11/20 History of tobacco use (Discharge Diagnosis) - 02/11/20 Hypercholesterolemia (Discharge Diagnosis) - 02/11/20 Attending Physician: Christian Saucedo MD Allergies, Adverse [...] 08/06/19 9:43:00 EST, Route to Pharmacy Electronically, [facility] # [facility], 165, cm, 08/06/19 9:21:00 EST, Height Start Date: 08/06/19 Status: OrderedQUEtiapine 50 mg oral tablet 1 tablet = 50 mg, By Mouth, Daily, DOSAGE DECREASE, # 30 tablet, 6 Refills, Maintenance, 08/06/19 9:38:00 EST, Tablet, [facility] # [facility], 165, cm, 08/06/19 9:21:00 [...] of tobacco use(Confirmed) Active 1Followed by Dr. FischreAigntb8Admomxpaliu [address] Sánchez negative by patient report.3Followed by Dr. SánchezOtcxjehi3Jeyqqjem by Dr. Ford at [place] [facility]. Diagnosis Diagnosis Type Effective Health Clinical Informant Dates Status Service Depression Discharge 02/11/20 Diagnosis History of tobacco use Discharge 02/11/20 Diagnosis Hypercholesterolemia Discharge 02/11/20 Diagnosis Vital Signs Most recent to oldest [Reference Range]: 1 2 Height 165 cm 165 cm (02/11/20 11:33 AM) (02/11/20 11:15 AM) Weight 86.2 kg (02/11/20 11:15 AM) Oxygen Saturation [94-100 %] 98 % (02/11/20 11:15 AM) Pulse Rate [55-90 bpm] 64 bpm (02/11/20 11:15 AM) Body Mass Index [18.5-24.99] 31.66 *>HHI* (02/11/20 11:15 AM) Blood Pressure [90-138/55-84 mm Hg] 135/80 mm Hg 142/ 80 mm Hg (02/11/20 11:33 AM) *H* (02/11/20 11:15 AM) Mode of Delivery (Oxygen) Room air (02/11/20 11:15 AM) Blood pressure sites Arm, left (02/11/20 11:15 AM) Weight Obtained Via Standing scale (02/11/20 11:15 AM) Social History Social History Type Response Smoking Status Current every day smoker; Ot her: Three-quarter pack cigarettes daily; entered on: 04/25/18 Sex
--- OUTSIDE RECORDS SUMMARY | 2022-06-02 08:35 | XMS_ITS | Continuity of Care Document ---
:1960 Author Organization [facility] Adult Address [address] [place] [address]- Care Team Providers Name Role Phone Sheryl MAHER, Christian Orozco Primary Care Physician [facility] Date[facility]s): 09/21/19 - 09/28/19 [facility] Adult [address] [place] [address]- [place] Encounter Diagnosis Cough (Discharge Diagnosis) - 09/21/19 Attending Physician: Not on Staff, Attending MD [...] 0 Refills, Maintenance Start Date: 04/25/18 Status: OrderedAugmentin 875 mg-125 mg oral tablet 1 tablet, By Mouth, Every 12 hours, for 10 days, with food or milk, # 20 tablet, 0 Refills, Acute 10/01/19 11:31:00 EST, 09/21/19 11:31:00 EST, Tablet, [facility] # [facility], 165, cm, 09/21/19 11:14:00 EST, Height Start Date: 09/21/19 Stop Date: 10/01/19 Status: Ordereddicyclomine 10 mg oral capsule 1 [...] 08/06/19 9:43:00 EST, Route to Pharmacy Electronically, [facility] # [facility], 165, cm, 08/06/19 9:21:00 EST, Height Start Date: 08/06/19 Status: OrderedQUEtiapine 50 mg oral tablet 1 tablet = 50 mg, By Mouth, Daily, DOSAGE DECREASE, # 30 tablet, 6 Refills, Maintenance, 08/06/19 9:38:00 EST, Tablet, [facility] # 50, 165, cm, 08/06/19 9:21:00 [...] of tobacco use(Confirmed) Active 1Followed by Dr. FischerUolvkn2Wwmkfegsxbo [address] Sánchez negative by patient report.3Followed by Dr. SánchezOsszecrl6Eupukpro by Dr. Ford at [place] [facility]. Diagnosis Diagnosis Type Effective Dates Health Status Clinical Serv ice Informant Cough Discharge 09/21/19 Diagnosis Vital Signs Most recent to oldest [Reference Range]: 1 Height 165 cm (09/21/19 11:14 AM) Weight 79.9 kg (09/21/19 11:14 AM) Oxygen Saturation [94-100 %] 98 % (09/21/19 11:14 AM) Pulse Rate [55-90 bpm] 66 bpm (09/21/19 11:14 AM) Body Mass Index [18.5-24.99] 29.35 *H* (09/21/19 11:14 AM) Blood Pressure [90-138/55-84 mm Hg] 124/84 mm Hg (09/21/19 11:14 AM) Temperature [96.8-100.4 DegF] 98.5 DegF (09/21/19 11:14 AM) Mode of Delivery (Oxygen) Room air (09/21/19 11:14 AM) Blood pressure sites Arm, left (09/21/19 11:14 AM) Temperature Route Oral (09/21/19 11:14 AM) Weight Obtained Via Standing scale (09/21/19 11:14 AM) Social History Social History Type Response Smoking Status Current every day smoker; Ot her: Three-quarter pack cigarettes daily; entered on: 04/25/18 Sex
--- OUTSIDE RECORDS SUMMARY | 2022-06-02 08:35 | XMS_ITS | Continuity of Care Document ---
:1960 Author Organization [facility] Adult Address [address] [place] [address]- Care Team Providers Name Role Phone Sheryl MAHER, Christian Orozco Primary Care Physician [facility] Date(s): 02/18/20 - 03/19/20 [facility] Adult [address] [place] [address]- [facility] Allergies, Adverse Reactions, Alerts Substance Reaction [...] 9:43:00 EST, Route to Pharmacy Electronically, [facility], 165, cm, 08/06/19 9:21:00 EST, Height Start Date: 08/06/19 Status: OrderedQUEtiapine 50 mg oral tablet 1 tablet = 50 mg, By Mouth, Daily, DOSAGE DECREASE, # 30 tablet, 2 Refills, Maintenance, 03/03/20 10:53:00 EDT, Tablet, [facility] # [facility], 165, cm, 02/11/20 [...] of tobacco use(Confirmed) Active 1Followed by Dr. FischerQxqdwy1Tpsmbolwkqo [address] Sánchez negative by patient report.3Followed by Dr. SánchezQkawtzgi3Vldwsfga by Dr. Ford at [place] [facility]. Social History Social History Type Response Smoking Status Current every day smoker; Ot her: Three-quarter pack cigarettes daily; entered on: 04/25/18 Sex
--- OUTSIDE RECORDS SUMMARY | 2022-06-02 08:35 | XMS_ITS | Continuity of Care Document ---
:1960 Author Organization [facility] Adult Address [address] [place] [address]- Care Team Providers Name Role Phone Christian Saucedo MD Primary Care Physician [facility] Date(s): 12/02/20 - 01/01/21 [facility] Adult [address] [place] [address]- Attending Physician: Admtr, Ar8 Admitting Physician: Admtr, Ar8 Referring Physician: Admtr, Ar8 Allergies, Adverse Reactions, Alerts Substance Reaction Severity [...] 09/22/20 7:56:00 EST, Route to Pharmacy Electronically, [facility] # [facility], 165, cm, 07/16/20 8:26:00 EST, Height Start Date: 09/22/20 Status: OrderedQUEtiapine 50 mg oral tablet 1 tablet = 50 mg, By Mouth, Daily, # 30 tablet, 5 Refills, Maintenance, 11/04/20 11:23:00 EDT, Tablet, [facility] # [facility], 165, cm, 10/23/20 [...] of tobacco use(Confirmed) Active 1Followed by Dr. FischerIxdluc0Tfzajtprhuy [address] Sánchez negative by patient report.3Followed by Dr. SánchezGoeqntcy9Uuqtjhpe by Dr. Ford at [place] [facility]. Social History Social History Type Response Smoking Status Former smoker, quit more letitia n 30 days ago; Other: quit 2017; entered on: 07/16/20 Sex
--- OUTSIDE RECORDS SUMMARY | 2022-06-02 08:35 | XMS_ITS | Continuity of Care Document ---
:1960 Author Organization [facility] Address [address] [place] [address] Drive [address] [place] [address]- Care Team Providers Name Role Phone Sheryl MAHER, Christian Orozco Primary Care Physician Encounter [facility] Date(s): 02/02/21 - 03/12/[address] [place] [address]- Attending Physician: Jeanie MAHER, Twila Allergies, Adverse Reactions, Alerts Substance Reaction Severity [...] 09/22/20 7:56:00 EST, Route to Pharmacy Electronically, [facility] # [facility], 165, cm, 07/16/20 8:26:00 EST, Height Start Date: 09/22/20 Status: OrderedQUEtiapine 50 mg oral tablet 1 tablet = 50 mg, By Mouth, Daily, # 30 tablet, 5 Refills, Maintenance, 11/04/20 11:23:00 EDT, Tablet, [facility] # [facility], 165, cm, 10/23/20 [...] of tobacco use(Confirmed) Active 1Followed by Dr. FischerNtynsc3Pecatktbgnn [address] Sánchez negative by patient report.3Followed by Dr. SánchezOntopgtd9Cuprwozt by Dr. Ford at [place] [facility]. Social History Social History Type Response Smoking Status Former smoker, quit more letitia n 30 days ago; Other: quit 2017; entered on: 07/16/20 Sex
--- OUTSIDE RECORDS SUMMARY | 2022-06-02 08:35 | XMS_ITS | Continuity of Care Document ---
:1960 Author Organization [facility] Adult Address [address] [place] [address]- Care Team Providers Name Role Phone Sheryl MAHER, Christian Orozco Primary Care Physician Encounter [facility] [place] [place] Date(s): 02/01/22 - 03/03/22 [facility] Adult [address] [place] [address]- Attending Physician: Raissa Kruger Admitting Physician: AdmRaissa goins Referring Physician: AdmtrRaissa Allergies, Adverse Reactions, Alerts [...] tetanus/diphtheria/pertussis, acel(Tdap) 09/09/14 Recorde d 1Result Comment: [facility]# [address] THE [address] [phone] Medications acetaminophen-HYDROcodone 325 mg-5 mg oral tablet [...] EVERY DAY, # 90 Unknown, 1 Refills, [facility] # [facility], 165, cm, 11/12/21 [...] 06/29/21 13:27:00 EST, Route to Pharmacy Electronically, [facility] # [facility], 165, cm, 06/29/21 [...] of tobacco use(Confirmed) Active 1Followed by Dr. FischerUhnrkt3Ieojimxtyyz [address] Sánchez negative by patient report.3Followed by Dr. SánchezLxodqmns7Whxsqoxx by Dr. Ford at [place] [facility]. Social History Social History Type Response Smoking Status Former smoker, quit more letitia n 30 days ago; Other: quit 2017; entered on: 07/16/20 Sex
--- OUTSIDE RECORDS SUMMARY | 2022-06-02 08:35 | XMS_ITS | Continuity of Care Document ---
:1960 Author Organization [facility] Address [address] [place] [address] Drive [address] [place] [address]- Care Team Providers Name Role Phone Sheryl MAHER, Christian Orozco Primary Care Physician Encounter [facility] Date(s): 05/26/21 - 06/25/[address] [place] [address]- Attending Physician: Raissa Kruger Admitting Physician: Raissa [...] 03/27/21 16:22:00 EDT, Route to Pharmacy Electronically, [facility] # [facility], 165, cm, 02/10/21 14:46:00 EDT, Height, 85.5, kg, 01/08/21 8:32:00 EDT, Dry Weight Start Date: 03/27/21 Status: OrderedQUEtiapine 50 mg oral tablet See Instructions, TAKE ONE TABLET BY MOUTH EVERY DAY, # 30 tablet, 1 Refills, [facility] # [facility], [...] of tobacco use(Confirmed) Active 1Followed by Dr. FischerPiirdl3Ufbmyqgkpox [address] Sánchez negative by patient report.3Followed by Dr. SánchezThdjjjgx9Jdbiwhxg by Dr. Ford at [place] [facility]. Social History Social History Type Response Smoking Status Former smoker, quit more letitia n 30 days ago; Other: quit 2017; entered on: 07/16/20 Sex
--- OUTSIDE RECORDS SUMMARY | 2022-06-02 08:35 | XMS_ITS | Continuity of Care Document ---
:1960 Author Organization [facility] Adult Address [address] [place] [address]- Care Team Providers Name Role Phone Christian Saucedo MD Primary Care Physician [place] [facility] [place]21 [place] 06/30/21 [facility] Adult [address] [place] [address]- Encounter Diagnosis Diarrhea (Discharge Diagnosis) - 06/23/21 Attending Physician: Lea LIBRARY SUPERVISOR, Florence Gore Referring Physician: Christian Saucedo MD Allergies, Adverse [...] tetanus/diphtheria/pertussis, acel(Tdap) 09/09/14 Recorde d 1Result Comment: [facility]# ON THE [address]OX [phone] Medications atorvastatin 10 mg oral tablet 1 [...] 06/29/21 13:27:00 EST, Route to Pharmacy Electronically, [facility] # [facility], 165, cm, 06/29/21 13:22:00 EST, Height, 85.5, kg, 01/08/21 8:32:00 EDT, Dry Weight Start Date: 06/29/21 Status: OrderedQUEtiapine 50 mg oral tablet 1 tablet = 50 mg, By Mouth, Daily, # 90 tablet, 1 Refills, 06/29/21 13:27:00 EST, [facility] # [facility], 165, cm, 06/29/21 13:22:00 [...] of tobacco use(Confirmed) Active 1Followed by Dr. FischerLuemqa0Ozwzrucrxsk [address] Sánchez negative by patient report.3Followed by Dr. SánchezRfyrgsjx9Nbwlyaer by Dr. Ford at [facility]. Diagnosis Diagnosis Type Effective Dates Health Status Clinical Serv ice Informant Diarrhea Discharge 06/23/21 Diagnosis Vital Signs Most recent to oldest [Reference Range]: 1 Height 165 cm (06/23/21 7:13 AM) Weight 75.0 kg (06/23/21 7:13 AM) Body Mass Index [18.5-24.99] 27.55 *H* (06/23/21 7:13 AM) Social History Social History Type Response Smoking Status Former smoker, quit more letitia n 30 days ago; Other: quit 2017; entered on: 07/16/20 Sex
--- OUTSIDE RECORDS SUMMARY | 2022-06-02 08:35 | XMS_ITS | Continuity of Care Document ---
:1960 Author Organization [facility] Address [address] [place] [address] Drive [address] [place] [address]- Care Team Providers Name Role Phone Sheryl MAHER, Christian Orozco Primary Care Physician Encounter [facility] [place] Date(s): 10/07/20 - 01/01/[address] [place] [address]- Attending Physician: Vladislav Pascual MD Referring Physician: [...] 09/22/20 7:56:00 EST, Route to Pharmacy Electronically, [facility] # [facility], 165, cm, 07/16/20 8:26:00 EST, Height Start Date: 09/22/20 Status: OrderedQUEtiapine 50 mg oral tablet 1 tablet = 50 mg, By Mouth, Daily, # 30 tablet, 5 Refills, Maintenance, 11/04/20 11:23:00 EDT, Tablet, [facility] # [facility], 165, cm, 10/23/20 [...] of tobacco use(Confirmed) Active 1Followed by Dr. FischerNqbqtg2Hlpevfevsud [address] Sánchez negative by patient report.3Followed by Dr. SánchezMulnwncx5Grpomgja by Dr. Ford at [facility]. Social History Social History Type Response Smoking Status Former smoker, quit more letitia n 30 days ago; Other: quit 2017; entered on: 07/16/20 Sex
--- OUTSIDE RECORDS SUMMARY | 2022-06-02 08:35 | XMS_ITS | Continuity of Care Document ---
:1960 Author Organization [facility] Address [address] [place] [address] Drive [address] [place] [address]- Care Team Providers Name Role Phone Sheryl MAHER, Christian Orozco Primary Care Physician Encounter [facility] Date(s): 08/09/19 - 10/14/[address] [place] [address]- [facility] Attending Physician: Vladislav Pascual MD Referring Physician: Katie RIVAS, Kelley Estevez Allergies, Adverse [...] 08/06/19 9:43:00 EST, Route to Pharmacy Electronically, [facility] # [facility], 165, cm, 08/06/19 9:21:00 EST, Height Start Date: 08/06/19 Status: OrderedQUEtiapine 50 mg oral tablet 1 tablet = 50 mg, By Mouth, Daily, DOSAGE DECREASE, # 30 tablet, 6 Refills, Maintenance, 08/06/19 9:38:00 EST, Tablet, [facility] # [facility], 165, cm, 08/06/19 [...] of tobacco use(Confirmed) Active 1Followed by Dr. FischerBlbzyt0Puocovcdpwe [address] Sánchez negative by patient report.3Followed by Dr. SánchezXkrvzrbj0Ebmlfyow by Dr. Ford at [facility]. Social History Social History Type Response Smoking Status Current every day smoker; Ot her: Three-quarter pack cigarettes daily; entered on: 04/25/18 Sex
--- OUTSIDE RECORDS SUMMARY | 2022-06-02 08:35 | XMS_ITS | Continuity of Care Document ---
:1960 Author Organization [facility] Adult Address [address] [place] [address]- Care Team Providers Name Role Phone Christian Saucedo MD Primary Care Physician En[place] [facility] [place] Date(s): 11/21/20 - 12/21/20 [facility] Adult [address] [place] [address]- Allergies, Adverse Reactions, Alerts Substance Reaction Severity [...] EST, Route to Pharmacy Electronically, [facility] # [facility], 165, cm, 07/16/20 8:26:00 EST, Height Start Date: 09/22/20 Status: OrderedQUEtiapine 50 mg oral tablet 1 tablet = 50 mg, By Mouth, Daily, # 30 tablet, 5 Refills, Maintenance, 11/04/20 11:23:00 EDT, Tablet, [facility] # [facility], 165, cm, 10/23/20 [...] of tobacco use(Confirmed) Active 1Followed by Dr. FischerMbjiau5Fhthztcqhqt [address] Sánchez negative by patient report.3Followed by Dr. SánchezZmmzjlbh6Frmzvqxw by Dr. Ford at [facility]. Social History Social History Type Response Smoking Status Former smoker, quit more letitia n 30 days ago; Other: quit 2017; entered on: 07/16/20 Sex
--- OUTSIDE RECORDS SUMMARY | 2022-06-02 08:35 | XMS_ITS | Continuity of Care Document ---
:1960 Author Organization [facility] Address [address] [place] [address] Drive [address] [place] [address]- Care Team Providers Name Role Phone Sheryl MAHER, Christian Orozco Primary Care Physician Encounter [facility] Date(s): 01/29/21 - 02/28/[address] [place] [address]- Allergies, Adverse Reactions, Alerts Substance Reaction Severity [...] 09/22/20 7:56:00 EST, Route to Pharmacy Electronically, [facility] # [facility], 165, cm, 07/16/20 8:26:00 EST, Height Start Date: 09/22/20 Status: OrderedQUEtiapine 50 mg oral tablet 1 tablet = 50 mg, By Mouth, Daily, # 30 tablet, 5 Refills, Maintenance, 11/04/20 11:23:00 EDT, Tablet, [facility] # [facility], [...] of tobacco use(Confirmed) Active 1Followed by Dr. FischerGfdnba6Cccycjnqezk [address] Sánchez negative by patient report.3Followed by Dr. SánchezSsmscjez5Sumxiwmk by Dr. Ford at [facility]. Social History Social History Type Response Smoking Status Former smoker, quit more letitia n 30 days ago; Other: quit 2017; entered on: 07/16/20 Sex
--- OUTSIDE RECORDS SUMMARY | 2022-06-02 08:35 | XMS_ITS | Continuity of Care Document ---
:1960 Author Organization [facility] Address [address] [place] [address] Drive [address] [place] [address]- Care Team Providers Name Role Phone Christian Saucedo MD Primary Care Physician Encounter [facility] Date(s): 12/14/19 - 12/21/[address] [place] [address]- [facility] Attending Physician: Vladislav Pascual MD Referring Physician: [...] 08/06/19 9:43:00 EST, Route to Pharmacy Electronically, [facility], 165, cm, 08/06/19 9:21:00 EST, Height Start Date: 08/06/19 Status: OrderedQUEtiapine 50 mg oral tablet 1 tablet = 50 mg, By Mouth, Daily, DOSAGE DECREASE, # 30 tablet, 6 Refills, Maintenance, 08/06/19 9:38:00 EST, Tablet, [facility], 165, [...] of tobacco use(Confirmed) Active 1Followed by Dr. FischerYkeatr1Iwnqssellzk [address] Sánchez negative by patient report.3Followed by Dr. SánchezCdxjyvkb1Dtdwqciv by Dr. Ford at [facility]. Vital Signs Most recent to oldest [Reference Range]: 1 Height 165 cm (5/8/20 9:54 AM) Temperature [96.8-100.4 DegF] 97.7 DegF (12/14/19 9:54 AM) Social History Social History Type Response Smoking Status Current every day smoker; Ot her: Three-quarter pack cigarettes daily; entered on: 04/25/18 Sex
--- OUTSIDE RECORDS SUMMARY | 2022-06-02 08:35 | XMS_ITS | Continuity of Care Document ---
:1960 Author Organization [facility] Adult Address [address] [place] [address]- Care Team Providers Name Role Phone Sheryl MAHER, Christian Orozco Primary Care Physician [place] [facility] [place]10[place] 12/10/21 [facility] Adult [address] [place] [address]- Allergies, Adverse Reactions, Alerts Substance Reaction Severity [...] tetanus/diphtheria/pertussis, acel(Tdap) 09/09/14 Recorde d 1Result Comment: [facility]# ON THE [address] [phone] Medications atorvastatin 10 mg oral tablet 1 [...] 06/29/21 13:27:00 EST, Route to Pharmacy Electronically, [facility], 165, cm, 06/29/21 13:22:00 EST, Height, 85.5, kg, 01/08/21 8:32:00 EDT, Dry Weight Start Date: 06/29/21 Status: OrderedQUEtiapine 50 mg oral tablet 1 tablet = 50 mg, By Mouth, Daily, # 90 tablet, 1 Refills, 06/29/21 13:27:00 EST, [facility] # [facility], 165, cm, 06/29/21 [...] of tobacco use(Confirmed) Active 1Followed by Dr. FischerMhrzdi5Rqslqmacbgx [address] Sánchez negative by patient report.3Followed by Dr. SánchezZsjldgec1Qydfvvrw by Dr. Ford at [facility]. Social History Social History Type Response Smoking Status Former smoker, quit more letitia n 30 days ago; Other: quit 2017; entered on: 07/16/20 Sex
--- OUTSIDE RECORDS SUMMARY | 2022-06-02 08:35 | XMS_ITS | Continuity of Care Document ---
:1960 Author Organization [facility] Adult Address [address] [place] [address]- Care Team Providers Name Role Phone Christian Saucedo MD Primary Care Physician Encounter [facility] [place] Date(s): 11/27/20 - 12/27/20 [facility] Adult [address] [place] [address]- Allergies, Adverse Reactions, Alerts Substance Reaction Severity [...] 09/22/20 7:56:00 EST, Route to Pharmacy Electronically, [facility] # [facility], 165, cm, 07/16/20 8:26:00 EST, Height Start Date: 09/22/20 Status: OrderedQUEtiapine 50 mg oral tablet 1 tablet = 50 mg, By Mouth, Daily, # 30 tablet, 5 Refills, Maintenance, 11/04/20 11:23:00 EDT, Tablet, [facility] # [facility], 165, [...] of tobacco use(Confirmed) Active 1Followed by Dr. FischerSmgabx3Zusxgywiuku [address] Sánchez negative by patient report.3Followed by Dr. SánchezXtpbpdna1Mtbvgqwx by Dr. Ford at [facility]. Social History Social History Type Response Smoking Status Former smoker, quit more letitia n 30 days ago; Other: quit 2017; entered on: 07/16/20 Sex
--- OUTSIDE RECORDS SUMMARY | 2022-06-02 08:35 | XMS_ITS | Continuity of Care Document ---
:1960 Author Organization [facility] [address] [place] [address]- Care Team Providers Name Role Phone Sheryl MAHER, Christian Orozco Primary Care Physician Encounter [facility] [place] Date(s): 01/29/21 - 02/05/[address] [place] [address]- Attending Physician: Karen Ballard Allergies, Adverse Reactions, Alerts Substance Reaction Severity [...] 5 Refills, Maintenance, 12/31/20 9:41:00 EDT, Tablet, [facility] # [facility], 165, cm, 12/02/20 [...] 09/22/20 7:56:00 EST, Route to Pharmacy Electronically, [facility] # [facility], 165, cm, 07/16/20 8:26:00 EST, Height Start Date: 09/22/20 Status: OrderedQUEtiapine 50 mg oral tablet 1 tablet = 50 mg, By Mouth, Daily, # 30 tablet, 5 Refills, Maintenance, 11/04/20 11:23:00 EDT, Tablet, [facility] # [facility], 165, cm, 10/23/20 [...] 02/06/21 8:32:00 EDT, 02/01/21 8:32:00 EDT, Tablet, [facility] # [facility], Partial fill upon [...] of tobacco use(Confirmed) Active 1Followed by Dr. FischerEsacmt8Oqsjecrqcef [address] Sánchez negative by patient report.3Followed by Dr. SánchezHlhhqwxb0Gytccnku by Dr. Ford at [facility]. Vital Signs Most recent to oldest [Reference Range]: 1 Height 165 cm (01/29/21 3:40 PM) Weight 85 kg (01/29/21 3:40 PM) Body Mass Index [18.5-24.99] 31.22 *>HHI* (01/29/21 3:40 PM) Temperature [96.8-100.4 DegF] 98.6 DegF (01/29/21 3:40 PM) Social History Social History Type Response Smoking Status Former smoker, quit more letitia n 30 days ago; Other: quit 2017; entered on: 07/16/20 Sex
--- OUTSIDE RECORDS SUMMARY | 2022-06-02 08:35 | XMS_ITS | Continuity of Care Document ---
:1960 Author Organization [facility] Adult Address [address] [place] [address]- Care Team Providers Name Role Phone Sheryl MAHER, Christian Orozco Primary Care Physician Encounter [facility] Date(s): 09/21/19 - 10/01/19 [facility] Adult [address] [place] [address]- [facility] Attending Physician: Raissa Kruger Admitting Physician: Raissa [...] of tobacco use(Confirmed) Active 1Followed by Dr. FischerLppwov5Djigzttwudj [address] Sánchez negative by patient report.3Followed by Dr. SánchezCvnlymti0Asjsimty by Dr. Ford at [facility]. Social History Social History Type Response Smoking Status Current every day smoker; Ot her: Three-quarter pack cigarettes daily; entered on: 04/25/18 Sex
--- OUTSIDE RECORDS SUMMARY | 2022-06-02 08:36 | XMS_ITS | Continuity of Care Document ---
:1960 Author Organization [facility] Adult Address [address] [place] [address]- Care Team Providers Name Role Phone Sheryl MAHER, Christian Orozco Primary Care Physician Encounter [facility] Date(s): 05/09/20 - 06/08/20 [facility] Adult [address] [place] [address]- [facility] Allergies, Adverse Reactions, Alerts Substance Reaction Severity [...] Maintenance, 04/02/16 16:07:36 Start Date: 04/02/16 Status: Orderednaproxen 500 mg oral tablet 1 tablet = 500 mg, By Mouth, 2 times a day, PRN Pain , Moderate, # 14 tablet, 0 Refills, Acute 06/18/20 8:00:00 EST, 06/04/20 16:01:00 EDT, [facility], 165, cm, 05/14/20 13:09:00 EDT, Height Start Date: 06/04/20 Stop Date: 06/18/20 Status: Orderedpropranolol 60 mg oral capsule, extended release 60 mg, 1, capsule, By Mouth, Daily, # 30 capsule, Refills 0, Maintenance, 04/25/18 14:17:31 EDT Start Date: 04/25/18 Status: OrderedPROzac 20 mg oral capsule 60 mg, 3, capsule, By Mouth, Daily, # 90 capsule, Refills 5, Tot. Refills 5, Maintenance, 03/30/20 9:15:00 EDT, Route to Pharmacy Electronically, [facility], 165, cm, 02/11/20 11:33:00 EDT, Height Start Date: 03/30/20 Status: OrderedQUEtiapine 50 mg oral tablet 1 tablet = 50 mg, By Mouth, Daily, DOSAGE DECREASE, # 30 tablet, 2 Refills, Maintenance, 06/06/20 13:23:00 EDT, Tablet, [facility], 165, cm, 05/14/20 13:09:00 [...] of tobacco use(Confirmed) Active 1Followed by Dr. Dlufid1Jkogdtdsoms [address] Sánchez negative by patient report.3Followed by Dr. SánchezRbteprvt0Rrmjdktp by Dr. Ford at [facility]. Social History Social History Type Response Smoking Status Current every day smoker; Ot her: Three-quarter pack cigarettes daily; entered on: 04/25/18 Sex
--- OUTSIDE RECORDS SUMMARY | 2022-06-02 08:36 | XMS_ITS | Continuity of Care Document ---
:1960 Author Organization [facility] Address [address] [place] [address] Drive [address] [place] [address]- Care Team Providers Name Role Phone Christian Saucedo MD Primary Care Physician [place] [facility] [place]10[place] - 02/17/[address] [place] [address]- Attending Physician: Twila Ware MD Referring Physician: Christian Saucedo MD Allergies, [...] 09/22/20 7:56:00 EST, Route to Pharmacy Electronically, [facility], 165, cm, 07/16/20 [...] of tobacco use(Confirmed) Active 1Followed by Dr. FischerUkrjpd2Abqytphjxib [address] Gonzalo negative by patient report.3Followed by Dr. SánchezWshjpace6Ahrnakxj by Dr. Ford at [place]. Vital Signs Most recent to oldest [Reference Range]: 1 Height 165 cm (02/10/21 2:46 PM) Weight 85 kg (02/10/21 2:46 PM) Body Mass Index [18.5-24.99] 31.22 *>HHI* (02/10/21 2:46 PM) Temperature [96.8-100.4 DegF] 98.6 DegF (02/10/21 2:46 PM) Social History Social History Type Response Smoking Status Former smoker, quit more letitia n 30 days ago; Other: quit 2017; entered on: 07/16/20 Sex
--- OUTSIDE RECORDS SUMMARY | 2022-06-02 08:36 | XMS_ITS | Continuity of Care Document ---
:1960 Author Organization [facility] Adult Address [address] [place] [address]- Care Team Providers Name Role Phone Sheryl MAHER, Christian Orozco Primary Care Physician [place] [facility] [place] 12[place]12/21 [facility] [address] [place] [address]- Attending Physician: AdmRaissa goins Admitting Physician: AdmtrRaissa Referring Physician: AdmtrRaissa Allergies, Adverse Reactions, Alerts [...] tetanus/diphtheria/pertussis, acel(Tdap) 09/09/14 Recorde d 1Result Comment: [facility]# ON THE [address] [phone] Medications atorvastatin 10 mg oral tablet 1 [...] 06/29/21 13:27:00 EST, Route to Pharmacy Electronically, [facility] [...] of tobacco use(Confirmed) Active 1Followed by Dr. FischerLeqeqb8Whvgzrnugas [address] Sánchez negative by patient report.3Followed by Dr. SánchezVonwnwdg5Ueuoiehj by Dr. Ford at [place] [facility]. Social History Social History Type Response Smoking Status Former smoker, quit more letitia n 30 days ago; Other: quit 2017; entered on: 07/16/20 Sex
--- OUTSIDE RECORDS SUMMARY | 2022-06-02 08:36 | XMS_ITS | Continuity of Care Document ---
:1960 Author Organization [facility] [place] [facility] Adult Address [address] [place] [address]- Care Team Providers Name Role Phone Christian Saucedo MD Primary Care Physician [place] [facility] [place]12[place]20 [place] 12/12/20 [facility] [place] Adult [address] [place] [address]- Allergies, Adverse Reactions, Alerts Substance Reaction Severity [...] of tobacco use(Confirmed) Active 1Followed by Dr. FischerKtzhqw2Obqsatrrsgh [address] Sánchez negative by patient report.3Followed by Dr. SánchezHvlnggdo8Kqlmyhfk by Dr. Ford at [place] [facility]. Social History Social History Type Response Smoking Status Former smoker, quit more letitia n 30 days ago; Other: quit 2017; entered on: 07/16/20 Sex
--- OUTSIDE RECORDS SUMMARY | 2022-06-02 08:36 | XMS_ITS ---
:1960 Author Name Christian Saucedo Care Team Providers Name Role Phone SherylChristian Unavailable Unavailable PROBLEMS Unknown Problems ALLERGIES Substance Reaction Event Type Date Status OxyContin hives, bruising Drug Allergy May, Active ENCOUNTERS Encounter Location Date Diagnosis [address] May, Tin ea unguium B35.1 ; [place] Pain in right t oe(s) [address] M79.674 ; Pain i n left toe(s) M79.675 ; Plantar fascial fibromat osis M72.2 and Perone al tendinitis of ri t lower extremity M76.[address] Apr, [place] [address] May, [place] [address] Jul, [place] [address] Apr, Lisa n in Limb 729.5 ; ASO [place] 440.20 ; Exosto sis 726.91 [address] ; Hammer toe 735 .4 ; Keratoma 701.1 a nd Raynaud's Syndro me 443.[address] Feb, [place] [address] Nov, Lisa n in Limb 729.5 ; [place] 440.20 ; Exosto sis 726.91 [address] ; Hammer toe 735 .4 ; Keratoma 701.1 a nd Raynaud's Syndro me 443.[address] 05 Sep, 2013 [place] [address] Aug, Ulc er of Other Part of [facility] [place] Foot 707.15 [address] Aug, Ing rowing Nail 703.0 and [facility] [place] Pain in Limb 72 9.5 [address] Jul, Lisa n in Limb 729.5 ; [facility] [place] Arthritis - Deg enerative [address] 719.97 ; Hammer toe 735.4 ; Onychomycosis 110.1 and Ingrowing Nail [address] Jun, [place] [address] Feb, [facility] [place] [address] December, Lisa n in Limb 729.5 ; [facility] [place] Arthritis - Deg enerative [address] 719.97 ; Hammer toe 735.4 and Onychomycosi s 110.[address] Oct, Lisa n in Limb 729.5 ; [place] Ingrowing Nail 703.0 ; [address] Arthritis - Dege nerative 719.97 ; Hammer toe 735.4 and Onychomycosi s 110.[address] Aug, Lisa n in Limb 729.5 ; [place] Ingrowing Nail 703.0 ; [address] Arthritis - Dege nerative 719.97 ; Hammer toe 735.4 and Onychomycosi s 110.[address] Jul, [place] [address] [facility] May, Ulc er of Other Part of [place], [place] Foot 707.15 [address] [facility] Apr, Ing rowing Nail 703.0 ; [facility] [place] Arthritis - Deg enerative [address] 719.97 ; Pain in Limb 729.5 ; Hammer t oe 735.4 and Onychomycosi s 110.1 UNKNOWN Sep, [facility] [address] Jun, Art hritis - Degenerative [place], [place] 719.97 ; Hammer toe 735.4 [address] ; Onychomycosis 110.1 and Ingrowing Nail 7 03.[address] [facility] May, Ulc er of Other Part of [place], [place] Foot 707.15 and Ingrowing [address] Nail 703.0 [facility] [address] May, Ing rowing Nail 703.0 [place] [address] [facility] Apr, [place] [address] [facility] Mar, Ing rowing Nail 703.0 and [place] Pain in Limb 72 9.5 [address] IMMUNIZATIONS No Known Immunizations SOCIAL HISTORY Qualifiers Date Current Smoker REASON FOR REFERRAL FUNCTIONAL STATUS PLAN OF CARE Activity Details Future/Pending Procedure 05157-ONLLNIA NAIL, 6 OR MOR E Future/Pending Procedure 56666-XCTFBIH SKIN/TISSUE Future/Pending Procedure 32757-WKO Future/Pending Procedure 23929- Debride <25 sq cm Future/Pending Procedure 49068-ECU Future/Pending Procedure 43116- Debride <25 sq cm Future/Pending Procedure 95597-Kngsk[place]uk Plate Future/Pending Procedure 18350-Bsjqudmn Plate VITAL SIGNS Height 5 ft 5 in in 2018-05-10 Weight 158 lbs 2018-05-10 BMI 26.29 kg/m2 2018-05-10 Heart Rate 82 /min 2014-04-25 Blood pressure systolic 134 mm Hg 2018-05-10 Blood pressure diastolic 88 mm Hg 2018-05-10 MEDICATIONS Medication Instructions Dosage Frequency Start End Duration Statu s Date Date Pro-biotic Blend Unknown Dicyclomine HCl Orally Four 1 tablet 6h 30 day(s) U nknown 20 MG times a day Morphine Sulfate Unknown Effexor Active Meclizine HCl 25 Orally Once a 1 tablet 24h 30 day(s ) Unknown MG day as needed Atorvastatin Active Calcium Propranolol HCl Active Vicodin Unknown Nabumetone 750 Orally ONCE A 1 tablet May, day(s) Unknown MG DAY WITH FOOD 2010 Atenolol Unknown Soma Unknown LORazepam Unknown Keflex 500 500 Orally every 12 1 capsule 12h Aug, day( s) Unknown MG hrs 2013 Inderal [place] Unknown PROCEDURES Procedure Date Ordered Result Body Site ACTIVE WOUND CARE/20 CM OR < May 26, 2011 Avulsion Plate May 13, 2011 Avulsion Plate Apr 05, 2011 DEBRIDE SKIN/TISSUE Aug 20, 2013 AT LEAST 1 RX TRANSMIT ERX SYS May 13, 2011 DEBRIDE NAIL, 6 OR MORE Jul 24, 2018 DEBRIDE NAIL, 6 OR MORE May 10, 2018 ACTIVE WOUND CARE/20 CM OR < May 18, 2012 REMOVAL OF NAIL BED May 03, 2012 AFO PLASTIC/OTH MATERIAL PREFAB May 10, 2018 STERILE TRAY Aug 09, 2013 STERILE TRAY May 03, 2012 REMOVAL OF NAIL BED Aug 09, 2013 RESULTS No Results REASON FOR VISIT Insurance Providers [facility] Member Patient Patient Patient Patient Patient Subscriber Subscriber Subscriber Group Insurance Plan Plan Plan Plan ID Relationship Address Phone Name Date of ID Name Date of No Type Insurance Insurance Insurance Coverage to Subscriber Address Phone Name Dates Medicare National Medicare self Danna [id number] 20 [id number] [employer] [address] [employer] [address] [place] [address] Medicare National Medicare self Danna [id number] 20 [id number] [employer] [address] [place] [address] MEDICAL (GENERAL) HISTORY Type Description Date Medical History reflux Medical History mumps Medical History measles Medical History headaches/migraines Medical History chicken pox Medical History back, hip, knee pain Surgical History spinal fusion 2003 Surgical History back surgery 2002 Hospitalization History Patient was in [place] [facility] for dehydrati on. 11/2012 Hospitalization History Patient went to [facility] for dehydrat ion. 03/2013 Hospitalization History 05/2013
--- OUTSIDE RECORDS SUMMARY | 2022-06-02 08:36 | XMS_ITS | Continuity of Care Document ---
:1960 Author Organization [facility] Address [address] [place] [address]- Care Team Providers Name Role Phone Sheryl MAHER, Christian Orozco Primary Care Physician [facility]counter [facility] Date(s): 03/05/20 - 04/04/20 [facility] [address] [place] [address]- [facility] Allergies, Adverse Reactions, Alerts Substance [...] of tobacco use(Confirmed) Active 1Followed by Dr. FischerQofmpz5Tsafgfqsclb [address] Sánchez negative by patient report.3Followed by Dr. SánchezSrucrmpq5Hmlbpqjw by Dr. Ford at [facility]. Social History Social History Type Response Smoking Status Current every day smoker; Ot her: Three-quarter pack cigarettes daily; entered on: 04/25/18 Sex
--- OUTSIDE RECORDS SUMMARY | 2022-06-02 08:36 | XMS_ITS | Continuity of Care Document ---
:1960 Author Organization [facility] [place] [address], [address] [place] [address]- Care Team Providers Name Role Phone Christian Saucedo MD Primary Care Physician Encounter 04/04/20 - 04/11/20 [facility] [address], [address] [place] [address]- [place] Attending Physician: Christian Saucedo MD Admitting Physician: Christian Saucedo MD Referring Physician: Christian Saucedo MD Allergies, [...] 2 Refills, Maintenance, 03/03/20 10:53:00 EDT, Tablet, [facility], 165, cm, 02/11/20 [...] of tobacco use(Confirmed) Active 1Followed by Dr. FischerBgijrp1Gayiyicdvel [address] Sánchez negative by patient report.3Followed by Dr. SánchezTtlhntuv2Ppexkcli by Dr. Ford at [facility]. Social History Social History Type Response Smoking Status Current every day smoker; Ot her: Three-quarter pack cigarettes daily; entered on: 04/25/18 Sex
--- OUTSIDE RECORDS SUMMARY | 2022-06-02 08:36 | XMS_ITS | Continuity of Care Document ---
:1960 Author Organization [facility] Address [address] [place] [address] Drive [address] [place] [address]- Care Team Providers Name Role Phone Christian Saucedo MD Primary Care Physician Encounter [facility] Date(s): 02/25/21 - 06/25/[address] [place] [address]- Attending Physician: Twila Ware MD Referring Physician: [...] 03/27/21 16:22:00 EDT, Route to Pharmacy Electronically, [facility] # [facility], 165, cm, 02/10/21 14:46:00 EDT, Height, 85.5, kg, 01/08/21 8:32:00 EDT, Dry Weight Start Date: 03/27/21 Status: OrderedQUEtiapine 50 mg oral tablet See Instructions, TAKE ONE TABLET BY MOUTH EVERY DAY, # 30 tablet, 1 Refills, [facility] # [facility], 165, cm, 02/10/21 14:46:00 [...] of tobacco use(Confirmed) Active 1Followed by Dr. FischerRaelrf4Egfxfapnisf [address] Sánchez negative by patient report.3Followed by Dr. SánchezGsuvzkcz1Znuodovg by Dr. Ford at [facility]. Social History Social History Type Response Smoking Status Former smoker, quit more letitia n 30 days ago; Other: quit 2017; entered on: 07/16/20 Sex
--- OUTSIDE RECORDS SUMMARY | 2022-06-02 08:36 | XMS_ITS | Continuity of Care Document ---
:1960 Author Organization [facility] Address [address] [place] [address] Drive [address] [place] [address]- Care Team Providers Name Role Phone Sheryl MAHER, Christian Orozco Primary Care Physician [facility]counter [facility] Date(s): 11/02/19 - 11/12/19 [facility] [address] [place] [address] Drive [address] [place] [address]- [facility] Attending Physician: Raissa Kruger Admitting Physician: Raissa [...] Route to Pharmacy Electronically, [facility] # 50, 165, cm, 08/06/19 9:21:00 EST, Height Start Date: 08/06/19 Status: OrderedQUEtiapine 50 mg oral tablet 1 tablet = 50 mg, By Mouth, Daily, DOSAGE DECREASE, # 30 tablet, 6 Refills, Maintenance, 08/06/19 9:38:00 EST, Tablet, [facility] # 50, 165, cm, [...] of tobacco use(Confirmed) Active 1Followed by Dr. FischerDqylhk4Zgwhjmjgjjg [address] Sánchez negative by patient report.3Followed by Dr. SánchezYkkpbzas7Mnqzxwdw by Dr. Ford at [facility]. Social History Social History Type Response Smoking Status Current every day smoker; Ot her: Three-quarter pack cigarettes daily; entered on: 04/25/18 Sex
--- OUTSIDE RECORDS SUMMARY | 2022-06-02 08:36 | XMS_ITS | Continuity of Care Document ---
:1960 Author Organization [facility] Address [address] [place] [address] Drive [address] [place] [address]- Care Team Providers Name Role Phone Sheryl MAHER, Christian Orozco Primary Care Physician Encounter [facility] Date(s): 10/07/20 - 10/14/[address] [place] [address]- Attending Physician: Ankur MAHER, Vladislav Chapman Allergies, Adverse Reactions, Alerts Substance Reaction Severity [...] of tobacco use(Confirmed) Active 1Followed by Dr. FischerRipgcc1Dcxgvjatksb [address] Sánchez negative by patient report.3Followed by Dr. SánchezVsntjmmf2Iighftef by Dr. Ford at [facility]. Social History Social History Type Response Smoking Status Former smoker, quit more letitia n 30 days ago; Other: quit 2017; entered on: 07/16/20 Sex
--- NOTE | 2022-06-02 09:00 | ED_ITS ---
HPI - Animal Bite General Chief Complaint: Animal Bite Stated Complaint: cat bite, swollen hand Time Seen by Provider: 06/02/22 08:20 Source: patient Mode of arrival: ambulatory Limitations: no limitations History of Present Illness HPI narrative: Patient is a 62-year-old female right hand dominant with a past medical history of HTN, HLD, IBS, and depression who presents to the ED today with a cat bite. 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 She noticed a puncture wound on her hand with surrounding redness and swelling that has increased since the initial injury. She states she cleaned the wound with water and Neosporin. She took ibuprofen for pain with no relief of symptoms with her last dose being at 03:00 this morning. She reports that the cat is her personal pet and is up-to-date on all its vaccinations. She endorses a past history of a MRSA infection in her left hand that required IV antibiotic treatment. She denies any fevers, chills, arthralgias, myalgias, N/V/D, and other lesions. She also reports a mild headache and nausea which she believes is attributed to her pain. To patient's knowledge she is UTD on her tetanus. complaint: animal bite Onset (ago): hour(s) Animal: cat Description of animal: household pet Mechanism: bite and scratch Location: other (Right hand, right wrist) Pain description: burning and constant Severity scale (1-10): 8 Context: unprovoked Associated symptoms: erythema, headache and other (Swelling) Treatments prior to arrival: irrigation and antibiotic ointment Related Data Patient tetanus UTD: Yes Home Medications Medication Instructions Recorded Confirmed atorvastatin 10 mg tablet 1 tab PO DAILY 05/06/20 05/06/20 dicyclomine 20 mg tablet 1 tab PO QID 05/06/20 05/06/20 diphenoxylate-atropine 2.5 1 tab PO DAILY PRN Diarrhea 05/06/20 05/06/20 mg-0.025 mg tablet (Lomotil) fluoxetine 20 mg capsule 60 mg PO 05/06/20 lorazepam 1 mg tablet PO 05/06/20 tdyumjgwfumq-gqjyhevn-kvnllo tablet 1 tab PO DAILY 05/06/20 05/06/20 propranolol 60 mg capsule,24 1 cap PO DAILY 05/06/20 05/06/20 hr,extended release quetiapine 50 mg tablet 1 tab PO BEDTIME 05/06/20 05/06/20 rizatriptan 10 mg tablet (Maxalt) 10 mg PO Q2-4H PRN Migraine 05/06/20 05/06/20 Headache topiramate 15 mg sprinkle capsule 75 mg PO DAILY 02/17/21 Previous Rx's Medication Instructions Recorded amoxicillin 875 mg-potassium 1 tab PO BID #14 tabs 06/02/22 clavulanate 125 mg tablet morphine 15 mg immediate release 15 mg PO Q6H PRN pain #5 tabs 06/02/22 tablet sulfamethoxazole 800 1 tab PO BID #14 tabs 06/02/22 mg-trimethoprim 160 mg tablet (Bactrim DS) Allergies Allergy/AdvReac Type Severity Reaction Status Date / Time gabapentin Allergy Rash Verified 09/17/21 13:08 Iodinated Contrast Media Allergy Hives Verified 09/17/21 13:08 oxycodone [From OxyContin] Allergy Hives Verified 09/17/21 13:08 Review of Systems Review of Systems: Yes all other systems are reviewed and are negative Constitutional: Constitutional: Reports no additional constitutional complaints, Denies body ache(s), Denies chills, Denies fever(s), Reports headache(s) and Denies weakness Eyes: Eyes: Reports no additional eye complaints and Denies change in vision ENT: Reports system reviewed and no additional complaints, except as docu mented, Denies dizziness, Reports headache(s), Denies nasal congestion, Denies nasal discharge and Denies neck pain Cardiovascular: Cardiovascular: Reports no additional cardiovascular complaints, Denies chest pain, Denies leg edema and Denies dyspnea Respiratory: Respiratory: Reports no additional respiratory complaints, Denies cough and Denies dyspnea Gastrointestinal: Gastrointestinal: Reports no additional gastrointestinal complaints, Denies abdominal pain, Denies diarrhea, Reports nausea and Denies vomiting Genitourinary: Genitourinary: Reports no additional female genitourinary complaints and Denies urinary incontinence Musculoskeletal: Musculoskeletal: Reports no additional musculoskeletal complaints, Denies back pain, Denies arthralgias, Denies joint swelling, Denies neck pain, Denies numbness and Denies tingling Integumentary/Breasts: Skin/Breast: Reports as per HPI, Reports lesions (Bite ), Denies rash and Reports skin swelling Neurologic: Reports system reviewed and no additional complaints, except as documented, Denies dizziness, Reports headache(s), Denies numbness, Denies tingling and Denies weakness Endocrine: Endocrine: Reports no additional endocrine complaints Hematologic/Lymphatic: Hematologic/Lymphatic: Reports no additional hematologic/lymphatic complaints Allergic/Immunologic: Allergic/Immunologic: Reports no additional allergic/immunologic complaints PMF Past Medical History Attestation statement: The following information was validated with the patient. Source: old records reviewed, obtained from family and nursing notes reviewed Medical History (Updated 06/02/22 @ 09:25 by Candis Urbina NP) Arthritis of back Chronic back pain COVID-19 vaccine administered Depression Elevated cholesterol GERD (gastroesophageal reflux disease) History of palpitations Hypertension IBS (irritable bowel syndrome) Migraine Personal history of nicotine dependence Tubular adenoma of colon (~2014) Surgical History (Updated 10/20/21 @ 09:46 by Nini Le PA-C) History of ankle surgery History of back surgery History of carpal tunnel surgery of right wrist History of colonoscopy History of hand surgery History of lumbar spinal fusion Status post left foot surgery Social History Social History Alcohol intake: never Patient Tobacco Use Status: Former Tobacco user Quit Date: 3 YRS AGO Advance Directives: Yes Advance Directives Information Provided: No Advance Directives on File: No Advance Directives Date on File: 05/13/20 Current occupational status: unemployed Current occupation: right handed Physical Exam ED Vital Signs: Vital Signs - 24 hr 06/02/22 08:14 Temperature 98.1 F Pulse Rate 81 Respiratory Rate 20 Blood Pressure 137/77 Pulse Oximetry 98 Oxygen Delivery Method Room Air BMI result Body Mass Index 29.0 Const General: cooperative and no acute distress Nutritional Appearance: well nourished Orientation/consciousness: patient oriented x3 Limitations: no limitations HENMT Head: Yes normal to inspection, Yes normocephalic and Yes atraumatic Ears: hearing grossly normal bilaterally General nose exam: Normal external nose present Face and sinus: Yes normal facial exam Eyes General: appearance normal, both eyes and all related structures Eyelids: Yes eyelids normal Conjunctivae: conjunctivae normal Sclerae: sclerae normal Pupils: Equal, round and reactive pupils present EOM: EOMs intact bilaterally Neck Neck: Yes normal visual inspection, Yes trachea midline and Yes supple Chest Chest palpation & inspection: normal inspection of the chest Resp Effort & Inspection: normal respiratory effort and able to speak in complete sentences Cardio Rate: regular rate Rhythm: regular rhythm Peripheral pulses: radial pulses present GI Inspection: Yes normal to inspection Skin General skin exam: no rashes or lesions noted Neuro General: patient oriented x3 Cranial nerves: Yes CN's II-XII intact bilaterally and Yes Equal, round and reactive pupils present Extrem Right upper extremity: full ROM, elbow/forearm (Distal forearm, dorsal side) Details: abrasion and distal pulses intact and Extremity exam: right hand (Distal aspect of hand) Details: warmth, swelling, puncture wound and other (e rythema, no drainage) Left upper extremity: normal to inspection and full ROM Right lower extremity: normal to inspection and full ROM Left lower extremity: normal to inspection and full ROM Psych Appearance: grossly normal Mental Status: mental status grossly normal Course Course Course Narrative: Patient seen in conjunction with [place] student Heidy Sanchez MDM - Animal Bite MDM Narrative Medical decision making narrative: Patient is a 62-year-old female right hand dominant with a past medical history of HTN, HLD, IBS, and depression who presents to the ED today with a cat bite. 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 She reports that the cat is her personal pet and is up-to-date on all its vaccinations. Past hx of MRSA infection. Per pt, tetanus UTD. VSS. A puncture wound with surrounding erythema and edema present on the dorsal aspect of the R hand medial to the 1st carpal and a superficial 4cm abrasion on the distal R forearm. No pain with passive flexion/extension of wrist, no circumferential erythema, or lymphangetic streaking, therefore concern for septic joint or tenosynovitis low. Given history and exam, a cat bite with secondary cellulitis most likely. Will use of antibiotic course and short duration of Morphine for prn pain in addition to Tylenol. Will advise pt to follow up with PCP in 2-3 days to re-evaluate or return to ED if she develops fevers, chills, worsening redness, lymphangetic streaking, circumferential redness, or pain with passive flexion/extension of wrist. -patient has underlying history of IBS. She has had Augmentin the past with no difficulty. She is concerned however that she may have some diarrhea from it. Therefore patient will be discharged home with Augmentin. If she develops diarrhea she will discontinue this and take Bactrim instead. Differential Diagnosis Differential diagnosis: Likely cat bite Medical Records Attestation: I reviewed the patient's medical records. Discharge Plan Discharge Clinical Impression: Cat bite, Cellulitis Patient Disposition: Home, Self-Care Instructions: Animal Bite (ED), Cellulitis (ED), Warm Compress or Soak (ED) Additional Instructions: Start taking the Augmentin today. We discussed if you start to have diarrhea you may discontinue this and take the 2nd antibiotic Take Tylenol for pain. Add the morphine if you need it Warm compresses to the hand Return for fever, redness or streaking up the hand, 360 redness or swelling, pain with flexion and/or extension of the wrist Prescriptions: New amoxicillin-pot clavulanate 875-125 mg tablet 1 tab PO BID Qty: 14 0RF morphine 15 mg tablet 15 mg PO Q6H PRN (Reason: pain) Qty: 5 0RF Rx Instructions: Partial Fill upon patient request. sulfamethoxazole-trimethoprim [Bactrim DS] 800-160 mg tablet 1 tab PO BID Qty: 14 0RF No Action atorvastatin 10 mg tablet 1 tab PO DAILY rizatriptan [Maxalt] 10 mg Tablet 10 mg PO Q2-4H PRN (Reason: Migraine Headache) propranolol 60 mg capsule,extended release 24 hr 1 cap PO DAILY diphenoxylate-atropine [Lomotil] 2.5-0.025 mg Tablet 1 tab PO DAILY PRN (Reason: Diarrhea) dicyclomine 20 mg tablet 1 tab PO QID lorazepam 1 mg tablet PO fluoxetine 20 mg capsule 60 mg PO rvrehmgstbwj-jujwlzet-hljwmn Tablet 1 tab PO DAILY quetiapine 50 mg tablet 1 tab PO BEDTIME topiramate 15 mg capsule, sprinkle 75 mg PO DAILY Referrals: Christian Saucedo MD [Primary Care Provider] - 5 days (as needed) Interventions: ED Discharge Assessment Last Done: 06/02/22 09:51 Discharge Date/Time: 06/02/22 09:51
[2022-06-02] MEDS: Morphine Sulfate Immed Release 15 MG TABLET PO (09:42)
== END 2022-06-02 09:51 | disposition home or self-care (01) ==
PROVIDERS: Emergency Provider Emergency Medicine; PCP Internal Medicine
DX: S60.871A Other superficial bite of right wrist, initial encounter (principal); L03.113 Cellulitis of right upper limb; W55.01XA Bitten by cat, initial encounter; Y93.9 Activity, unspecified; Y92.009 Unspecified place in unspecified non-institutional (private) residence as the place of occurrence of the external cause; Y99.9 Unspecified external cause status
CPT/HCPCS: 99283

== ENCOUNTER 2022-11-11 15:35 | Outpatient (REF) | payer MEDICARE, OTHER, SELFPAY ==
--- NOTE | ~2022-11-11 | CT_ITS ---
EXAMINATION: CT CHEST SCREENING CLINICAL INFORMATION: Former smoker. 25 pack year history. Quit 4 years ago. COMPARISON: Previous chest CT most recent October 2021 TECHNIQUE: Multidetector volumetric CT imaging of the chest is performed without contrast using low dose technique. Additional 2D coronal and sagittal reformatted images and axial 3D maximum intensity projection (MIP) images are generated on the CT workstation. This CT examination was performed using dose optimization techniques as appropriate, variously including the following: *Automated exposure control *Adjustment of mA and/or kV according to patient size (this includes techniques or standardized protocols for targeted exams where dose is matched to indication/reason for exam; i.e. extremities or head) *Use of iterative reconstruction technique DLP: 54 mGy-cm FINDINGS: LUNGS: New clustered right lower lobe nodules, largest measuring 3 x 8 mm axial image 321 series 5. Pulmonary nodules are otherwise stable. Heterogeneous partially cystic partially groundglass attenuation area in the left lower lobe axial image 212 series 5 is stable. Small more solid solid pulmonary nodules are stable, largest measuring 4 mm in the right lower lobe axial image 310 series 5 MEDIASTINUM: The mediastinum is normal. CORONARY ARTERY CALCIFICATION: None visualized on this study. PLEURA: There is no pleural effusion. No pleural mass or thickening. AXILLA: No lymphadenopathy. UPPER ABDOMEN: Fatty infiltration of the liver. OSSEOUS STRUCTURES: Degenerative changes of the spine. CT/CT lung screening IMPRESSION: New clustered peribronchial right lower lobe nodules. Infectious or inflammatory process is favored. Pulmonary nodules are otherwise stable. ASSESSMENT: Lung-RADS category 3: Probably Benign RECOMMENDATION: Six-month low-dose chest CT follow-up recommended.
== END 2022-11-11 15:36 | disposition home or self-care (01) ==
LOC: HO.CT 15:35
PROVIDERS: PCP Internal Medicine; Visit Provider Physician Assistant Medical
DX: Z12.2 Encounter for screening for malignant neoplasm of respiratory organs (principal); Z87.891 Personal history of nicotine dependence
CPT/HCPCS: 71271

== ENCOUNTER 2022-12-16 09:37 | Outpatient (REF) | payer MEDICARE, OTHER, SELFPAY | END 2022-12-16 09:38 | disposition home or self-care (01) | LOC: HO.HOSX 09:37 | PROVIDERS: Visit Provider Physician Assistant | DX: Z13.89 Encounter for screening for other disorder (principal) ==

== ENCOUNTER 2023-02-14 11:11 | Outpatient (REF) | payer MEDICARE, OTHER, SELFPAY ==
--- NOTE | ~2023-02-14 | XR_ITS ---
EXAMINATION: XR ANKLE, LEFT CLINICAL INFORMATION: Pain COMPARISON: 09/17/2021 TECHNIQUE: AP, lateral, and mortise views of the left ankle. FINDINGS: Plate-screw fixation of the distal fibula is again noted. No evidence for hardware failure. Previously noted fracture line does no longer visualized consistent with interval healing. Well-corticated ossification inferior to the medial malleolus likely represents chronic healed injury as well. No acute superimposed fracture or dislocation at this time. XR/XR ankle LT min 3V IMPRESSION: Chronic appearing and postoperative changes as described. No acute fracture or dislocation. No evidence for hardware failure.
== END 2023-02-14 11:12 | disposition home or self-care (01) ==
LOC: HO.HOSX 11:11
PROVIDERS: Visit Provider Physician Assistant
DX: M25.572 Pain in left ankle and joints of left foot (principal)
CPT/HCPCS: 73610; 99212

== ENCOUNTER 2023-02-14 15:24 | Outpatient (AMB) | payer MEDICARE, MEDICAID, SELFPAY ==
[2023-02-14 15:30] VITALS: BMI 29.0
--- NOTE | 2023-02-14 15:30 | A.OFFVIS_ITS ---
Intake Vital Signs 02/14/23 15:30 Height 5 ft 6 in Weight 180 lb BMI 29.0 Intake Visit Reasons: OV - Left Ankle Pain Intake Note: Danna is a 62 year old patient who presents today for her left ankle pain. Hx of Lt Ankle ORIF 02/26/2021. Patient states at the end of the day her ankle is swollen, tiff and in throbbing pain. She states she had pain on top of her foot a couple weeks ago. Allergies gabapentin Allergy (Verified 02/14/23 15:32) Rash Iodinated Contrast Media Allergy (Verified 02/14/23 15:32) Hives oxycodone [From OxyContin] Allergy (Verified 02/14/23 15:32) Hives HPI OV - Left Ankle Pain HPI Details 62-year-old female who presents in the office today for a follow up of left ankle pain. The patient reports by the end of the day she had edema, stiffness and throbbing pain. She also reports pain on the top of her foot a few weeks ago. The patient reports her pain is on the proximal area on the top of her left foot and on the anterior aspect of the distal tibia. Patient is status post left ankle ORIF on 02/26/2021 Dr. Gao. [facility] Medical History (Updated 02/14/23 @ 15:47 by Inez Gaytan) Arthritis of back Chronic back pain Chronic pain of left ankle COVID-19 vaccine administered Depression Elevated cholesterol GERD (gastroesophageal reflux disease) History of palpitations Hypertension IBS (irritable bowel syndrome) Migraine Personal history of nicotine dependence Tubular adenoma of colon (~2014) Surgical History History of ankle surgery History of back surgery History of carpal tunnel surgery of right wrist History of colonoscopy History of hand surgery History of lumbar spinal fusion Status post left foot surgery Family History Brother Lung cancer Social History Alcohol intake: never Patient Tobacco Use Status: Former Tobacco user Quit Date: 2019 Years Smoked: (onset 14yo, smoked for total of 30yrs at 1ppd - 30pyh, quit 2019, vaping e-Cigarette/Vaping Use: Currently Using Advance Directives Date on File: 05/13/20 Current occupational status: unemployed Current occupation: right handed Review of Systems Const All systems reviewed & are unremarkable except as noted in HPI and below Physical Exam Vital Signs: BMI result Body Mass Index 29.0 Const General: cooperative and no acute distress Orientation/consciousness: patient oriented x3 Resp Effort & Inspection: normal respiratory effort and able to speak in complete sentences Cardio Rate: regular rate Peripheral pulses: Peripheral pulses 2+ throughout GI Palpation (GI): Soft to palpation Skin Lesions: no lesions Rashes: no rashes Neuro General: patient oriented x3 Extrem Other: Left ankle: Normal to inspection. No ecchymosis, erythema, or edema. Patient is able to demonstrate dorsiflexion, plantar flexion, pronation and supination. Negative anterior drawer. Sensation intact. Pedal Pulse intact. Psych Mental Status: mental status grossly normal Assessment & Plan Assessment & Plan (1) Chronic pain of left ankle: Code(s): M25.572 - Pain in left ankle and joints of left foot; G89.29 - Other chronic pain Plan Ms. Kelley is a 62-year-old female who presents in the office today for a follow up of left ankle pain. The patient reports by the end of the day she had edema, stiffness and throbbing pain. She also reports pain on the top of her foot a few weeks ago. The patient reports her pain is on the proximal area on the top of her left foot and on the anterior aspect of the distal tibia. Patient is status post left ankle ORIF on 02/26/2021 Dr. Gao. I discussed the options to include physical therapy and possible hardware removal. The patient reports she has participated in multiple sessions of physical therapy in the past and is hesitant to continue with physical therapy. This is understandable. I also discussed the role of possible hardware removal although I'm not entirely sure this will alleviate her symptoms. I would like her to be further evaluated by Dr. Rao to see if she would be a good candidate or if they would help to relieve her symptoms, which are pain and edema. She will follow up will Dr. Rao for further evaluation and treatment, or sooner if needed. X-rays of the left ankle which were obtained while in the office today and were reviewed by me, Drea Allan PA-C, revealed intact orthopedic hardware and chronic medial malleolar fracture. Orders: Orders XR ankle LT min 3V 02/14/23 M25.579 - Pain in unspecified ankle and joints of unspecified foot Patient Instructions: Scribed for Drea Allan PA-C by Inez Gaytan certified medical aide, on 02/14/2023 at 3:30 pm, EST. Your attestation Coding Level of Care Code Est Pt Level 4 (61535) Diagnoses Chronic pain of left ankle M25.572; G89.29
== END 2023-02-14 15:47 | disposition home or self-care (01) ==
PROVIDERS: PCP Internal Medicine; Visit Provider Physician Assistant
DX: M25.572 Pain in left ankle and joints of left foot (principal); G89.29 Other chronic pain; Z96.698 Presence of other orthopedic joint implants
CPT/HCPCS: 99214

== ENCOUNTER 2023-03-07 14:04 | Outpatient (AMB) | payer MEDICARE, MEDICAID, SELFPAY ==
--- NOTE | 2023-03-07 14:13 | A.OFFVIS_ITS ---
Intake Vital Signs 03/07/23 14:14 Height 5 ft 6 in Weight 180 lb BMI 29.0 Intake Visit Reasons: OV - Left Ankle Pain Intake Note: Danna 63 year old patient presents today for her S/P left ankle ORIF dos 02/26/21. Patient states she is still having some soreness on top of foot. Patient is doing physical therapy at home with no relief. Allergies gabapentin Allergy (Verified 03/07/23 14:16) Rash Iodinated Contrast Media Allergy (Verified 03/07/23 14:16) Hives oxycodone [From OxyContin] Allergy (Verified 03/07/23 14:16) Hives HPI OV - Left Ankle Pain HPI Details Danna is a 63 year old woman who presents with complaints of left ankle pain & swelling. She is ~2 years S/P left ankle ORIF, by Dr. Gao. She complains of pain and swelling of her ankle with activity, worse at the end of the day. She says wearing socks & shoes makes this worse for her. She says immediately following her surgery she was doing well and had no pain. She says she has done multiple sessions of PT in the past, without much improvement. She says she currently follows at [facility], and was prescribed meloxicam. She says she cannot take stronger NSAIDs due to GI issues. [facility] Medical History Arthritis of back Chronic back pain Chronic pain of left ankle COVID-19 vaccine administered Depression Elevated cholesterol GERD (gastroesophageal reflux disease) History of palpitations Hypertension IBS (irritable bowel syndrome) Migraine Personal history of nicotine dependence Tubular adenoma of colon (~2014) Surgical History History of ankle surgery History of back surgery History of carpal tunnel surgery of right wrist History of colonoscopy History of hand surgery History of lumbar spinal fusion Status post left foot surgery Family History Brother Lung cancer Social History Alcohol intake: never Patient Tobacco Use Status: Former Tobacco user Quit Date: 2019 Years Smoked: (onset 14yo, smoked for total of 30yrs at 1ppd - 30pyh, quit 2019, vaping e-Cigarette/Vaping Use: Currently Using Advance Directives Date on File: 05/13/20 Current occupational status: unemployed Current occupation: right handed Review of Systems Const All systems reviewed & are unremarkable except as noted in HPI and below Physical Exam Vital Signs: BMI result Body Mass Index 29.0 Const General: no acute distress and alert Orientation/consciousness: patient oriented x3 Neuro General: patient oriented x3 Extrem Other: Left Ankle: No appreciable TTP along incision or medial malleolus There is one area over the anterior talus that is mildly sore with deep palpation No effusion Walks normally Psych Appearance: grossly normal Affect: normal affect Attitude: cooperative Results Reviewed Results Reviewed: I personally reviewed relevant radiographs. Chronic appearing and postoperative changes as described. No acute fracture or dislocation. No evidence for hardware failure. Assessment & Plan Assessment & Plan (1) Left ankle effusion: Code(s): M25.472 - Effusion, left ankle Plan: This is a 63 year old woman with left ankle effusion. She has a hx of left ankle ORIF, DOS: 02/[address] Gao, and on radiographs she has a unfused small medial malleolus fracture. She has some pain with weight-bearing activities, along with increased effusion by the end of the day. She finds some relief from meloxicam. I discussed her diagnosis and treatment options. No acute intervention warranted, and I do not recommend surgery at this time. I recommend she modify her footwear, NSAIDs, RICE, and activity modification. If her pain worsens we can discuss further but I am unsure if this would benefit her or resolve her pain. (2) Chronic pain of left ankle: Code(s): M25.572 - Pain in left ankle and joints of left foot; G89.29 - Other chronic pain (3) History of ankle surgery: Code(s): Z98.890 - Other specified postprocedural states Plan: S/P left ankle ORIF, DOS: 02/[address] Gao. Plan Scribed for Sung Rao MD by Amish Lopez, medical apparatus model maker, on 03/07/23 at 2:30 PM, EST. Coding Level of Care Code Est Pt Level 4 (55651) Diagnoses Left ankle effusion M25.472 Chronic pain of left ankle M25.572; G89.29 History of ankle surgery Z98.890
[2023-03-07 14:14] VITALS: BMI 29.0
== END 2023-03-07 14:33 | disposition home or self-care (01) ==
PROVIDERS: PCP Internal Medicine; Visit Provider Orthopaedic Surgery
DX: M25.472 Effusion, left ankle (principal); M25.572 Pain in left ankle and joints of left foot; G89.29 Other chronic pain
CPT/HCPCS: 99213

== ENCOUNTER → 2023-03-07 14:04 | Outpatient (BNVA) | payer MEDICARE, OTHER, SELFPAY | PROVIDERS: PCP Internal Medicine; Visit Provider Orthopaedic Surgery ==

== ENCOUNTER 2023-07-26 09:27 | Outpatient (REF) | payer MEDICARE, OTHER, SELFPAY | END 2023-07-26 09:28 | disposition home or self-care (01) | LOC: HO.CT 09:27 | PROVIDERS: PCP Internal Medicine; Visit Provider Physician Assistant Medical | DX: Z12.2 Encounter for screening for malignant neoplasm of respiratory organs (principal); Z87.891 Personal history of nicotine dependence | CPT/HCPCS: 71250 ==

== ENCOUNTER 2024-01-12 14:43 | Outpatient (AMB) | payer MEDICARE, SELFPAY ==
--- NOTE | 2024-01-12 14:45 | MHC.OFFVIS ---
Intake Visit Reasons: OV-Left ankle pain follow up Intake Note: Danna is a 63 year old female who presents today for a follow up of her left ankle S/P left ankle ORIF dos 02/26/21 Patient reports that she is having continued pain, swelling and tightness. These symptoms are worsened at the end of the day where she has to elevate and ice the ankle with an occasional dose of Advil. Allergies gabapentin Allergy (Verified 03/07/23 14:16) Rash Iodinated Contrast Media Allergy (Verified 03/07/23 14:16) Hives oxycodone [From OxyContin] Allergy (Verified 03/07/23 14:16) Hives HPI HPI OV-Left ankle pain follow up: Details: Danna is a 63 year old female who presents today for a follow up of her left ankle S/P left ankle ORIF dos 02/26/21 Patient reports that she is having continued pain, swelling and tightness. These symptoms are worsened at the end of the day where she has to elevate and ice the ankle with an occasional dose of Advil. [facility] Medical History Arthritis of back Chronic back pain Chronic pain of left ankle COVID-19 vaccine administered Depression Elevated cholesterol GERD (gastroesophageal reflux disease) History of palpitations Hypertension IBS (irritable bowel syndrome) Migraine Personal history of nicotine dependence Tubular adenoma of colon (~2014) Surgical History History of ankle surgery History of back surgery History of carpal tunnel surgery of right wrist History of colonoscopy History of hand surgery History of lumbar spinal fusion Status post left foot surgery Family History Brother Lung cancer Social History Alcohol intake: never Patient Tobacco Use Status: Former Tobacco user Years Smoked: (onset 14yo, smoked for total of 30yrs at 1ppd - 30pyh, quit 2019, vaping e-Cigarette/Vaping Use: Currently Using Advance Directives Date on File: 05/13/20 Current occupational status: unemployed Current occupation: right handed Physical Exam Extrem Other: There is no effusion There is no ttp over the lateral hardware and the incision is c/d/i There is no tenderness over the medial malleollus There is a nl gait and there is near full ROM left ankle. Mild restriction of terminal flexion and extension Assessment & Plan Assessment & Plan (1) Bimalleolar fracture of left ankle: Onset Date: ~2020 Comment: (s/p ORIF 02/2021) Code(s): S82.842A - Displaced bimalleolar fracture of left lower leg, initial encounter for closed fracture Category: Medical Qualifiers: Encounter type: subsequent encounter Fracture type: closed Fracture healing: with routine healing Qualified Code(s): S82.842D - Displaced bimalleolar fracture of left lower leg, subsequent encounter for closed fracture with routine healing Plan: Bimalleolar ankle fracture. There is no hardware related pain and her complaint is swelling and stiffness at the end of the day. It is not every day. Her exam is benign. I suspect there is occasional effusion 2/2 OA. I discussed this with her. At this time we agreed to watch and wait. If her symptoms are worsening she may return for an xray. Coding Level of Care Code Est Pt Level 3 (51773) Diagnoses Closed bimalleolar fracture of left ankle with routine healing, subsequent encounter S82.842D Encounter type: subsequent encounter Fracture type: closed Fracture healing: with routine healing
== END 2024-01-12 15:16 | disposition home or self-care (01) ==
PROVIDERS: PCP Internal Medicine; Visit Provider Orthopaedic Surgery
DX: M25.572 Pain in left ankle and joints of left foot (principal); S82.842D Displaced bimalleolar fracture of left lower leg, subsequent encounter for closed fracture with routine healing
CPT/HCPCS: 99213

== ENCOUNTER → 2024-01-12 14:43 | Outpatient (BNVA) | payer MEDICARE, SELFPAY | PROVIDERS: PCP Internal Medicine; Visit Provider Orthopaedic Surgery | DX: M25.572 Pain in left ankle and joints of left foot (principal); S82.842D Displaced bimalleolar fracture of left lower leg, subsequent encounter for closed fracture with routine healing; X58.XXXD Exposure to other specified factors, subsequent encounter | CPT/HCPCS: 99212 ==

== ENCOUNTER 2024-08-13 15:29 | Outpatient (REF) | payer MEDICARE, SELFPAY ==
--- NOTE | ~2024-08-13 | CT_ITS ---
EXAMINATION: CT LUNG SCREENING HISTORY: Smoking history TECHNIQUE: Low dose axial images were obtained from the sternal notch to upper abdomen without IV contrast per standard departmental protocol. Sagittal and coronal reformatted images were also obtained and reviewed. One or more of the following techniques was used for dose reduction: Automated exposure control, adjustment of the mA and/or kV according to patient size, use of iterative reconstruction technique. DLP: 61 mGy-cm COMPARISON: Jose is made with the prior examination dated 07/26/2023. FINDINGS: Lung nodules: Again seen is a 5 mm groundglass nodule in the right lower lobe (series 6, image 344). An additional ill-defined groundglass opacity in the medial left lower lobe (series 6, image 250) is stable. No new pulmonary nodules are identified. Emphysema: none Coronary Calcification: none Aortic Arch Calcification: mild Potentially Significant Incidentals : none Additional Chest Findings: There is no pleural or pericardial effusion. No mediastinal or axillary lymphadenopathy is identified. Visualized upper abdomen: The visualized portions of the liver, spleen, and adrenals have an unremarkable unenhanced appearance. CT/CT lung screening IMPRESSION: No suspicious pulmonary nodules are identified. LUNG-RADS ASSESSMENT: Lung-RADS 2: Benign MANAGEMENT: Continue annual screening with LDCT in 12 months Category S: N/A Electronically signed by: Dagoberto Gillespie MD 08/14/2024 08:04 AM [facility]
--- OUTSIDE RECORDS SUMMARY | 2024-08-13 17:19 | XMS_ITS ---
Author Organization [facility] Address [address] [place] [address] Care Team Providers Care Senior Db2 Systems Programmer Name Role Phone Christian Saucedo MD Primary Care Provider Louise Sánchez Jr, Chapin Garcia REASON FOR VISIT big y refill request Lomotil MEDICATIONS Medication SIG (Take, Route, Frequency, Duration) Notes Start Date End Date Status Diphenoxylate-Atropine 2.5-0.025 MG 1 tablet as needed Oral Four times a day for 30 days 10/11/2023 Active Encounters Encounter Location Date Provider Diagnosis [facility] [address] [place] [address] 10/11/2023 Chapin Sánchez Jr PLAN OF TREATMENT Medication Medication Name Sig Start Date Stop Date Notes Diphenoxylate-Atropine 2.5-0.025 MG 1 tablet as needed Oral Four times a day for 30 days 10/11/2023 Next Appt Details Provider Name:Chapin cook Jr, 08/20/2024 01:35:00 PM, [address], [address], [place], [address],
--- OUTSIDE RECORDS SUMMARY | 2024-08-13 17:19 | XMS_ITS | Patient Health Record ---
Author Organization [facility] Address [address] [place] [address] Care Team Providers Care Fiberglass Quality Technician Name Role Phone Christian Saucedo MD Primary Care Provider Chapin Vaca Jr Unavailable ALLERGIES Allergen (clinical drug ingredient) Drug/Non Drug Allergy documented on EMR Reaction Allergy Type Onset Date Status oxycodone OxyContin Unknown Drug Allergy Active intravenous contast material (uncoded) Unknown Allergy Active REASON FOR REFERRAL No Information MEDICATIONS Medication SIG (Take, Route, Frequency, Duration) Notes Start Date End Date Status Diphenoxylate-Atropine 2.5-0.025 MG 1 tablet as needed Oral Four times a day for 30 days 05/17/2024 Active Dicyclomine HCl 20 MG 1 tablet Orally Fo ur times a day/prn for 30 days 10/01/2013 Active Lomotil 2.5-0.025 MG 1 tablet as needed Orally Four times a day as needed for 30 days 07/28/2022 Active Centrum Silver 1 1 Orally QD A ctive buPROPion HCl ER (XL) 150 MG Oral for 30 Active Timolol Maleate 0.5 % Ophthalmic for 90 Active Atorvastatin Calcium 10 MG 1 tablet Oral ly Once a day for 30 day(s) Active QUEtiapine Fumarate 50 MG Oral for 90 Active Propranolol HCl ER 60 MG Oral for 30 Active Venlafaxine HCl ER 150 MG Oral for 30 Active Vicodin 5-300 MG 1 tablet as needed O rally prn Active LORazepam 1 MG 1 ml at bedtime as n eeded Orally Once a day Active Topiramate 100 MG Oral for 30 Active IMMUNIZATIONS Vaccine Route Administration Date Status Comme nts Flu vaccine no Preserv 3 and > Unknown 06/15/2016 Admin istered Influenza Unknown 04/12/2018 Administered Influenza Unknown 06/08/2019 Administered Influenza Unknown 05/25/2022 Administered SOCIAL HISTORY Tobacco Use: Social History Observation Description Date Details (start date - stop date) Former Smoker NA - NA Sex Assigned At : Social History Observation Description Sex Assigned At Unknown Tobacco Use/Smoking Question Answer Notes Patient is a former smoker How long has it been since you last smoked? 3-6 months Alcohol Screen Question Answer Notes Did you have a drink containing alcohol in the p ast year? No Points 0 Interpretation Negative PROBLEMS Problem Type ICD Code Onset Dates Problem Status W/U Status Risk SNOMED Code Notes Problem Colon cancer screening (Z12.11) Active confirmed 715797109 Problem Irritable bowel syndrome with diarrhea (K58.0) Active confirmed 727729784 Problem Diverticulosis of large intestine without hemorrhage (K57.30) Active confirmed 975731345 Problem GERD without esophagitis (K21.9) Active confirmed 252397931 Encounters Encounter Location Date Provider Diagnosis [facility] [address] [place] [phone] 10/11/2023 Chapin Sánchez Jr [facility] [address] [place] [address] 05/17/2024 Chapin Sánchez Jr PLAN OF TREATMENT Pending Test Test Name Order Date CLOSTRIDIUM DIFF TOXIN A&B (C DIFF) 06/08 STOOL WBC 06/22/2013 OVA & PARASITES (O&P) 06/22/2013 CULTURE, STOOL 06/22/2013 Future Test Test Name Order Date COLONOSCOPY 10/03/2014 COLONOSCOPY 04/23/2020 Next Appt Details Provider Name:Chapin cook Jr, 08/20/2024 01:35:00 PM, [address], [address], [place], [address], Insurance Providers Payer Name Payer Address Payer Phone Subscriber Number Group Number Insured Name Patient Relationship to Insured Coverage Start Date Coverage End Date [facility] [address] [place] [address] [id number] GEOFF GAR Self - patient is the insured MEDICAL (GENERAL) HISTORY Medical History History ICD Code Irritable bowel syndrome with diarrhea p redominance migraine headache disk disease ectopic palpitations elevated cholesterol Colonoscopy/20 tubular adenoma, five-yea r followup Surgical History Surgery Date(Month/Year) back surgeries foot surgery carpal tunnel release-right hand Left ankle fracture 2020 Hospitalization History Reason Date(Month/Year)
--- OUTSIDE RECORDS SUMMARY | 2024-08-13 17:19 | XMS_ITS ---
Author Organization [facility] Address [address] [place] [address] Care Team Providers Care Box Tender Name Role Phone Christian Saucedo MD Primary Care Provider Louise Sánchez Jr, Chapin Garcia REASON FOR VISIT r/f request diphenoxylate-atropi MEDICATIONS Medication SIG (Take, Route, Frequency, Duration) Notes Start Date End Date Status Diphenoxylate-Atropine 2.5-0.025 MG 1 tablet as needed Oral Four times a day for 30 days 03/30/2023 Active Encounters Encounter Location Date Provider Diagnosis [facility] [address] [place] [phone] 03/30/2023 Chapin Sánchez Jr PLAN OF TREATMENT Medication Medication Name Sig Start Date Stop Date Notes Diphenoxylate-Atropine 2.5-0.025 MG 1 tablet as needed Oral Four times a day for 30 days 03/30/2023 Next Appt Details Provider Name:Chapin cook Jr, 08/20/2024 01:35:00 PM, [address] [place] [address], [address], [place], [address],
--- OUTSIDE RECORDS SUMMARY | 2024-08-13 17:19 | XMS_ITS | Patient Health Record ---
Author Organization [facility] Address [address] [facility] [place] [address] Care Team Providers Care Svp Of Digital Name Role Phone Christian Saucedo MD Primary Care Provider Grupo Marie Unavailable [phone] Allergies Allergen (clinical drug ingredient) Drug/Non Drug Allergy documented on EMR Reaction Allergy Type Onset Date Status oxycodone OxyContin hives, bruising Drug Allergy A ctive Reason For Referral No Information Medications Medication SIG (Take, Route, Fr equency, Duration) Notes Start Date End Date Status Effexor Active Inderal LA Unknown Pro-biotic Blend Orally Unk nown Dicyclomine HCl 20 MG 1 tablet Orally Fo ur times a day for 30 day(s) Unknown Propranolol HCl Acti ve Meclizine HCl 25 MG 1 tablet as needed O rally Once a day for 30 day(s) Unknown Keflex 500 500 MG 1 capsule Orally nataly ry 12 hrs for 10 day(s) 08/20/2013 Unknown Soma Unknown Nabumetone 750 MG 1 tablet Orally ONCE A DAY WITH FOOD for 30 day(s) 05/13/2011 Unknown Atorvastatin Calcium Active Atenolol Unknown Morphine Sulfate Unk nown Vicodin prn Unknown LORazepam Unknown Social History Tobacco Use: Social History Observation Description Date Details (start date - stop date) Current Smoker NA - NA Tobacco Use/Smoking Question Answer Notes Are you a: current smoker How often do you smoke cigarettes? every day How many cigarettes a day do you smoke? 6-10 How soon after you wake up d o you smoke your first cigarette? after 60 minutes Are you interested in quitting? Thinking about q uitting Additional Findings: Tobacco User Light cigarett e smoker ((1-9 cigs/day) Alcohol Screen Question Answer Notes Did you have a drink containing alcohol in the p ast year? No Points 0 Interpretation Negative Plan Of Treatment Pending Test Test Name Order Date [id number] NAIL, 6 OR MORE 05/10/2018 [id number] Plate 04/05/2011 [id number] Plate 05/13/2011 [id number] 05/03/2012 [id number] 08/09/2013 53559- Debride <25 sq cm 05/18/2012 61052- Debride <25 sq cm 05/26/2011 [id number] SKIN/TISSUE 08/20/2013 Insurance Providers Payer Name Payer Address Payer Phone Subscriber Number Group Number Insured Name Patient Relationship to Insured Coverage Start Date Coverage End Date Medicare National Govt Sv[employer] [address] [place] [address] [id number] Warren Danna Self - patient is the insured 8 Medical (General) History Medical History History ICD Code reflux mumps measles headaches/migraines chicken pox back, hip, knee pain Hammer toe Surgical History Surgery Date(Month/Year) spinal fusion 2004 back surgery 2002 Hospitalization History Reason Date(Month/Year) [facility]. 11/2012 Patient went to [facility] for dehydration. 03/2013
== END 2024-08-13 15:30 | disposition home or self-care (01) ==
LOC: HO.CT 15:29
PROVIDERS: PCP Internal Medicine; Visit Provider Physician Assistant Medical
DX: Z12.2 Encounter for screening for malignant neoplasm of respiratory organs (principal); Z87.891 Personal history of nicotine dependence
CPT/HCPCS: 71271

== ENCOUNTER → 2024-08-13 15:31 | Outpatient (BNV) | payer MEDICARE, SELFPAY | PROVIDERS: PCP Internal Medicine; Visit Provider Radiology Diagnostic Radiology | DX: R91.8 Other nonspecific abnormal finding of lung field (principal) | CPT/HCPCS: 71271 ==

== ENCOUNTER 2025-05-02 10:00 | Outpatient (AMB) | payer MEDICARE, SELFPAY ==
--- OUTSIDE RECORDS SUMMARY | 2025-02-16 05:00 | XMS_ITS ---
Author Organization [employer] [place] [place] Address [address] [phone] Care Team Providers Care Talent Development Manager Name Role Phone Migration, Provider Unavailable [phone] REASON FOR VISIT EMR-Geo Encounters Encounter Location Date Provider Diagnosis [facility] [address] [phone] 02/16/2025 Provider Migration Plan Of Treatment No Information Progress Notes * Danna KELLEYDOB: (65 yo F)Acc No.[id number]:02/16/2025 Patient: Mango REGANjosiah Corbin :1960 A ge:64 Y S ex:Female Address[address] [place], [address] Subjective: * Chief Complaints: * E MR-Geo * Medical History: * Surgical History: * Hospitalization/Major Diagno stic Procedure: * Medications: Objective: * Vitals: * Physical Examination: Assessment: Plan: * Treatment: * Procedure Codes: * * Date:
--- OUTSIDE RECORDS SUMMARY | 2025-02-17 05:00 | XMS_ITS ---
Author Organization [employer] [facility] Address [address] [phone] Care Team Providers Care Data Integrity Analyst Name Role Phone Migration, Provider Unavailable [phone] REASON FOR VISIT EMR-Geo Encounters Encounter Location Date Provider Diagnosis [facility] [address] [phone] 02/17/2025 Provider Migration Plan Of Treatment No Information Progress Notes * Danna KELLEYDOB: (65 yo F)Acc No.[id number]:02/17/2025 Patient: Mango REGANjosiah Corbin :1960 A ge:64 Y S ex:Female Address[address] [place], [address] Subjective: * Chief Complaints: * E MR-Geo * Medical History: * Surgical History: * Hospitalization/Major Diagno stic Procedure: * Medications: Objective: * Vitals: * Physical Examination: Assessment: Plan: * Treatment: * Procedure Codes: * * Date:
--- NOTE | 2025-05-02 10:02 | MHC.OFFVIS ---
Vital Signs 05/02/25 11:17 Height 5 ft 5 in Weight 185 lb BMI 30.8 Handedness Right Intake Visit Reasons: OV - left ankle ORIF 02/26/21 KI Intake Note: Danna is a 65 year old female who presents today for a follow up of her left ankle pain. Patient is status post left ankle ORIF 02/26/21 KI. Patient notices some swelling in her ankle when she is wearing a sock and shoe. She would like to know why she is still having swelling and if everything looks okay. Allergies gabapentin Allergy (Verified 05/02/25 11:15) Rash Iodinated Contrast Media Allergy (Verified 05/02/25 11:15) Hives oxycodone (From OxyContin) Allergy (Verified 05/02/25 11:15) Hives HPI HPI OV - left ankle ORIF 02/26/21 KI: Details: Ms. Warren bautista is a 65-year-old female who presents to the office today for left ankle evaluation status post ORIF on 02/26/[address] Gao. She reports that she continues to have waxing and waning edema in the left ankle. At times it does progress to the point of discomfort due to the swelling. She has a history of IBS and is not supposed to take NSAIDs however she does from time to time to assist with the edema. She denies any new injury or trauma and denies any pain with the edema. [facility] Medical History Arthritis of back Chronic back pain Chronic pain of left ankle COVID-19 vaccine administered Depression Elevated cholesterol GERD (gastroesophageal reflux disease) History of palpitations Hypertension IBS (irritable bowel syndrome) Migraine Personal history of nicotine dependence Tubular adenoma of colon (~2014) Surgical History History of ankle surgery History of back surgery History of carpal tunnel surgery of right wrist History of colonoscopy History of hand surgery History of lumbar spinal fusion Status post left foot surgery Family History Brother Lung cancer Social History Alcohol intake: never Patient Tobacco Use Status: Former Tobacco user Years Smoked: (onset 14yo, smoked for total of 30yrs at 1ppd - 30pyh, quit 2018, vaping e-Cigarette/Vaping Use: Currently Using Advance Directives Date on File: 05/13/20 Current occupational status: unemployed Current occupation: right handed Review of Systems Const All systems reviewed & are unremarkable except as noted in HPI and below Physical Exam Vital Signs: BMI result Body Mass Index 30.8 Const General: cooperative, healthy appearing and no acute distress Resp Effort & Inspection: normal respiratory effort and able to speak in complete sentences Extrem Other: Left ankle prior lateral incision site is well approximated and completely healed with no signs of infection. No tenderness to palpation over the orthopedic hardware. Able to demonstrate full dorsiflexion, plantar flexion, pronation supination without deficit. Negative anterior drawer. Sensation is intact. Pedal pulse intact. Psych Appearance: grossly normal Mental Status: mental status grossly normal Attitude: cooperative Assessment & Plan Assessment & Plan (1) History of ankle surgery: Code(s): Z98.890 - Other specified postprocedural states Category: Surgical (2) Chronic pain of left ankle: Code(s): M25.572 - Pain in left ankle and joints of left foot; G89.29 - Other chronic pain Category: Medical Plan Ms. Kelley this is a 65-year-old female who presents to the office today for left ankle evaluation status post ORIF on 02/26/[address] Gao. She reports that she continues to have waxing and waning edema in the left ankle. At times it does progress to the point of discomfort due to the swelling. She has a history of IBS and is not supposed to take NSAIDs however she does from time to time to assist with the edema. She denies any new injury or trauma and denies any pain with the edema. While in the office today, I discussed potential removal of hardware with this patient however she is not having any pain and there is no tenderness to palpation over the hardware. Her main complaint is waxing and waning edema that creates some discomfort. I have recommended compression stockings to assist with the swelling as well as elevation and ice as the patient is unable to take NSAIDs. Patient is content with this treatment plan and will follow up PRN, sooner if needed. X-rays of the left ankle which were obtained while in the office today and were reviewed by me, Drea Allan PA-C, revealed intact orthopedic hardware with routine healing. Orders: Orders XR ankle LT min 3V Today M25.579 - Pain in unspecified ankle and joints of unspecified foot Coding Level of Care Code Est Pt Level 3 (57157) Diagnoses History of ankle surgery Z98.890 Chronic pain of left ankle M25.572; G89.29
[2025-05-02 11:17] VITALS: BMI 30.8
--- OUTSIDE RECORDS SUMMARY | 2025-05-02 12:05 | XMS_ITS | Encounter Summary ---
Author Organization [facility] Address [address] [facility] [address] [place] [address] Phone Care Team Providers Care Energy And Conservation Technician Name Role Phone Raghu France MD Primary Care Provider Encounter Details Date Type Department Care Team (Late st Contact Info) Description 06/13/2023 Ancillary Orders [facility], X-Ray - [address] [address] Tulio Ford MD [address] [place] [address] [email or web address] Low back pain, unspecified back pain laterality, unspecified chronicity, unspecified whether sciatica present; Fusion of spine, lumbar region Social History Tobacco Use Types Packs/Day Years Used Date Smoking Tobacco: Never Assessed Education Answer Date Recorded Are you interested in more education? Not on ari e 06/13/2023 Are you concerned about learning? Not on file 06/13/2023 No 06/13/2023 No 06/13/2023 Digital Access Answer Date Recorded No 06/13/2023 No 06/13/2023 Reliable internet access at home? Not on file 06/13/2023 Device with a working camera? Not on file Comments Unknown Sex and Gender Information Value Date Recorded Sex Assigned at Not on file Legal Sex Female 9:51 PM EDT Gender Identity Not on file Sexual Orientation Not on file documented as of this encounter Plan of Treatment Not on file documented as of this encounter Results * XR LUMBOSACRAL SPINE 4 OR MORE VIEWS (06/13/2023 11:28 AM EST) Anatomical Region Laterality Modality L-spine Computed Radiogr aphy 06/13/2023 6:01 PM EST Impressions 06/13/2023 6:02 PM EST Postoperative findings without complication. Multilevel degenerative change. Narrative 06/13/2023 6:02 PM EST XR LUMBOSACRAL SPINE 4 OR MORE VIEWS COMPARISON: No relevant comparison. FINDINGS: Patient is status post fusion from L4 through S1, with bilateral transpedicular screws at L4 and S1, connected by posterior paraspinal rods. Spacers are noted at L4-L5 and L5-S1. No hardware complication. Stepwise retrolisthesis from L1 through L4. Vertebral body heights are maintained. No dynamic instability. Moderate degenerative disc disease at L2-L3 and L3-L4. Multilevel facet arthropathy. Diffuse osseous demineralization. Procedure Note Tommie Smith MD - 06/13/2023 XR LUMBOSACRAL SPINE 4 OR MORE VIEWS COMPARISON: No relevant comparison. FINDINGS: Patient is status post fusion from L4 through S1, with bilateraltranspedicular screws at L4 and S1, connected by posterior paraspinalrods. Spacers are noted at L4-L5 and L5-S1. No hardware complication.Stepwise retrolisthesis from L1 through L4. Vertebral body heights aremaintained. No dynamic instability. Moderate degenerative disc disease atL2-L3 and L3-L4. Multilevel facet arthropathy. Diffuse osseousdemineralization. IMPRESSION: Postoperative findings without complication. Multilevel degenerativechange. us Tulio Ford MD IMG XR SPINE Final R esult documented in this encounter Visit Diagnoses Diagnosis Low back pain, unspecified back pain laterality, unspecified chronicity, unspecified whether sciatica present Fusion of spine, lumbar region Low back pain, unspecified back pain laterality, unspecified chronicity, unspecified whether sciatica present Fusion of spine, lumbar region documented in this encounter Care Teams Energy And Conservation Technician Relationship Specialty Start Date End Date Raghu France MD [address] [place] [address] [place] [address] PCP - General Internal Medicine 10/10/17 documented as of this encounter Additional Source Comments The information contained in this document represents components of the legal health record. It is not the complete legal health record.[facility]
--- OUTSIDE RECORDS SUMMARY | 2025-05-02 12:05 | XMS_ITS | Encounter Summary ---
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 Social History Tobacco Use Types Packs/Day Years Used Date Smoking Tobacco: Never Assessed Comments Unknown Sex and Gender Information Value Date Recorded Sex Assigned at Not on file Legal Sex Female 9:51 PM EDT Gender Identity Not on file Sexual Orientation Not on file documented as of this encounter Plan of Treatment Not on file documented as of this encounter Results * XR THORACIC SPINE 3 VIEW (10/10/2017 11:28 AM EST) Anatomical Region Laterality Modality T-spine Radiographic Iman ging 10/10/2017 11:3 1 AM EST Impressions 10/10/2017 11:33 AM EST Stable osteopenia, mild scoliosis and kyphosis with mild multilevel degenerative disc disease. POS - [id number] Narrative 10/10/2017 11:33 AM EST HISTORY: As above. COMPARISON: Thoracic spine x-rays 04/17/2013 and MRI thoracic spine 05/26/2015. THORACIC SPINE RADIOGRAPH FINDINGS: 3 views obtained. Stable osteopenia and mild lower thoracic levoscoliosis. Stable mild thoracic kyphosis, spondylosis with multilevel mild anterior wedging and endplate spurring. Stable mild multilevel disc space narrowing throughout the lower thoracic spine and upper lumbar spine. No compression deformity or destructive bone lesions. No malalignment. Soft tissues are normal. Procedure Note Maged Anand MD - 10/10/2017 HISTORY: As above. COMPARISON: Thoracic spine x-rays 04/17/2013 and MRI thoracic spine05/26/2015. THORACIC SPINE RADIOGRAPH FINDINGS: 3 views obtained. Stable osteopenia and mild lower thoraciclevoscoliosis. Stable mild thoracic kyphosis, spondylosis with multilevelmild anterior wedging and endplate spurring. Stable mild multilevel discspace narrowing throughout the lower thoracic spine and upper lumbarspine. No compression deformity or destructive bone lesions. Nomalalignment. Soft tissues are normal. IMPRESSION: Stable osteopenia, mild scoliosis and kyphosis with mild multileveldegenerative disc disease. POS - [id number] Collin CHAVES IMG XR SPINE Final Resul t documented in this encounter Visit Diagnoses Diagnosis Pain in thoracic spine [facility] current use of opiate analgesic Pain in thoracic spine [facility] current use of opiate analgesic documented in this encounter Care Teams Assistant Store Manager Relationship Specialty Start Date End Date Raghu France MD [address] [place] [address] [place] [address] PCP - General Internal Medicine 10/10/17 documented as of this encounter Additional Source Comments The information contained in this document represents components of the legal health record. It is not the complete legal health record.[facility]
--- OUTSIDE RECORDS SUMMARY | 2025-05-02 12:05 | XMS_ITS | Patient Health Record ---
Author Organization [facility] Address [address] [phone] Care Team Providers Care Osteopathic Physician Name Role Phone Migration, Provider Unavailable [phone] Reason For Referral No Information Encounters Encounter Location Date Provider Diagnosis [facility] [address] [phone] 02/16/2025 Provider Migration [facility] [address] [phone] 02/17/2025 Provider Migration Plan Of Treatment No Information
--- OUTSIDE RECORDS SUMMARY | 2025-05-02 12:05 | XMS_ITS | Encounter Summary ---
Author Organization [facility] Address [address] [address] Phone Care Team Providers Care Electrical Discharge Machine Operator Name Role Phone Raghu France MD Primary Care Provider Reason for Referral * MRI/CAT Scan - Closed Specialty Diagnoses / Procedures Referred By Contac t Referred To Contact Radiology Diagnoses Radiculopathy, lumbar region Other intervertebral disc displacement, lumbar region Fusion of spine, lumbar region Procedures MRI Lumbar Spine CHG MRI, LUMBAR SPINE CHG MRI, LUMBAR SPINE COMBO Tulio Ford MD Phone: tel: fax: mailto:[email or web address] Referral ID Status Reason Start Date Expiration Date Visits Re quested Visits Authorized [id number] Closed 08/18/2023 09/30/2023 1 1 Encounter Details Date Type Department Care Team (Latest Contact Info) Description 08/18/2023 Transcribe Orders Virtual Department [address] [place] [address] Tulio Ford MD [address] [place] [phone] [email or web address] Radiculopathy, lumbar region (Primary Dx); Other intervertebral disc displacement, lumbar region; Fusion of spine, lumbar region Social History [...] documented as of this encounter Results * MRI LUMBAR SPINE (NEURO) WITHOUT CONTRAST (09/02/2023 4:31 PM EST) Anatomical Region Laterality Modality L-spine Magnetic Resonan ce 09/06/2023 4:42 PM EST Impressions 09/06/2023 4:45 PM EST Degenerative changes are more pronounced at L3-L4 where there is severe spinal canal stenosis and moderate right foraminal stenosis. Narrative 09/06/2023 4:45 PM EST MRI LUMBAR SPINE (NEURO) WITHOUT CONTRAST COMPARISON: XR LUMBOSACRAL SPINE 4 OR MORE VIEWS 2022- FINDINGS: Postoperative changes: Prior posterior decompression and posterior instrumented fusion spanning L4-S1 with intervertebral spacer placement at L4-L5 and L5-S1. Alignment and Vertebrae: Levoconvex curvature. No fracture. Marrow: No bone marrow replacing lesion. Conus: Normal. Findings by level: T12-L1: Central zone protrusion. No significant spinal canal or foraminal stenosis. L1-L2: No significant posterior disc abnormality. No spinal canal or foraminal stenosis. L2-L3: Bilateral facet arthropathy. Ligamentum flavum thickening. Concentric disc bulge. Moderate spinal canal stenosis. Degenerative endplate edema. Mild bilateral foraminal stenosis. L3-L4: Bilateral facet arthropathy. Ligamentum flavum thickening. Eccentric to the right disc bulge. Severe spinal canal stenosis. Moderate right and mild left foraminal stenosis. L4-L5: Postoperative changes described above. No significant posterior disc abnormality. No spinal canal or foraminal stenosis. L5-S1: Postoperative changes described above. No significant posterior disc abnormality. No spinal canal or foraminal stenosis. Procedure Note Lino Betancur MD - 09/06/2023 MRI LUMBAR SPINE (NEURO) WITHOUT CONTRAST COMPARISON: XR LUMBOSACRAL SPINE 4 OR MORE VIEWS FINDINGS: Postoperative changes: Prior posterior decompression and posteriorinstrumented fusion spanning L4-S1 with intervertebral spacer placement atL4-L5 and L5-S1. Alignment and Vertebrae: Levoconvex curvature. No fracture. Marrow: No bone marrow replacing lesion. Conus: Normal. Findings by level: T12-L1: Central zone protrusion. No significant spinal canal or foraminalstenosis. L1-L2: No significant posterior disc abnormality. No spinal canal orforaminal stenosis. L2-L3: Bilateral facet arthropathy. Ligamentum flavum thickening.Concentric disc bulge. Moderate spinal canal stenosis. Degenerativeendplate edema. Mild bilateral foraminal stenosis. L3-L4: Bilateral facet arthropathy. Ligamentum flavum thickening.Eccentric to the right disc bulge. Severe spinal canal stenosis. Moderateright and mild left foraminal stenosis. L4-L5: Postoperative changes described above. No significant posteriordisc abnormality. No spinal canal or foraminal stenosis. L5-S1: Postoperative changes described above. No significant posteriordisc abnormality. No spinal canal or foraminal stenosis. IMPRESSION: Degenerative changes are more pronounced at L3-L4 where there is severespinal canal stenosis and moderate right foraminal stenosis. Tulio Ford MD [facility] MR XSPECIALTY Final Result documented in this encounter Visit Diagnoses Diagnosis Radiculopathy, lumbar region- Primary Thoracic or lumbosacral neuritis or radiculitis, unspecified Other intervertebral disc displacement, lumbar region Fusion of spine, lumbar region Radiculopathy, lumbar region Thoracic or lumbosacral neuritis or radiculitis, unspecified Other intervertebral disc displacement, lumbar region Fusion of spine, lumbar region documented in this encounter Care Teams Electrical Discharge Machine Operator Relationship Specialty Start Date End Date Raghu France MD [address] [place] [address] [place] [address] PCP - General Internal Medicine 10/10/17 documented as of this encounter Additional Source Comments The information contained in this document represents components of the legal health record. It is not the complete legal health record.[facility]
--- OUTSIDE RECORDS SUMMARY | 2025-05-02 12:05 | XMS_ITS | Patient Health Record ---
Author Organization [facility] Address [address] [place] [phone] Care Team Providers Care System Programmer Name Role Phone Christian Saucedo MD Primary Care Provider Chapin Vaca Jr Unavailable Allergies Allergen (clinical drug ingredient) Drug/Non Drug Allergy documented on EMR Reaction Allergy Type Onset Date Status oxycodone OxyContin Unknown Drug Allergy Active intravenous contast material (uncoded) Unknown Allergy Active Reason For Referral No Information Medications Medication SIG (Take, Route, Frequency, Duration) Notes Start Date End Date Status Propranolol HCl ER 60 MG Oral for 30 Active Venlafaxine HCl ER 150 MG Oral for 30 Active QUEtiapine Fumarate 50 MG Oral for 90 Active Timolol Maleate 0.5 % Ophthalmic for 90 Active Aspirin Adult Low Dose 81 MG 1 tablet Orally Once a day for 30 day(s) Active amLODIPine Besy-Benazepril HCl 5-10 MG Oral for 90 Active MiraLax (colon prep) 17 GM/SCOOP mixed with Gatorade or Crystal Light Orally begin at 5:00 p.m. the day before the procedure for 1 day 08/20/2024 Active Vicodin 5-300 MG 1 tablet as needed O rally prn Active LORazepam 1 MG 1 ml at bedtime as n eeded Orally Once a day Active Dicyclomine HCl 20 MG 1 tablet Orally Fo ur times a day/prn for 30 days 10/01/2013 Active Diphenoxylate-Atropine 2.5-0.025 MG 1 Oral Four times a day for 30 days As needed 04/03/2025 Active Atorvastatin Calcium 10 MG 1 tablet Oral ly Once a day for 30 day(s) Active Centrum Silver 1 1 Orally QD A ctive Immunizations Vaccine Route Administration Date Status Comme nts Flu vaccine no Preserv 3 and > Unknown 06/15/2016 Admin istered Influenza Unknown 04/12/2018 Administered Influenza Unknown 06/08/2019 Administered Influenza Unknown 05/25/2022 Administered Influenza Unknown 05/29/2024 Administered Social History Tobacco Use: Social History Observation Description Date Details (start date - stop date) Former Smoker NA - NA Tobacco Use/Smoking Question Answer Notes Patient is a former smoker How long has it been since you last smoked? 3-6 months Alcohol Screen Question Answer Notes Did you have a drink containing alcohol in the p ast year? No Points 0 Interpretation Negative Problems Problem Type SNOMED Code ICD Code Onset Dates Problem Status W/U Status Risk Notes Problem 661507140 Colon cancer screening (Z12.11) Active confirmed Problem 505925378 Irritable bowel syndrome with diarrhea (K58.0) Active confirmed Problem 274992088 Diverticulosis o f large intestine without hemorrhage (K57.30) Active confirmed Problem 259951510 GERD without esophagitis (K21.9) Active confirmed Vital Signs Temperature 97.1 degrees Fahrenheit 08/20/2024 Blood pressure diastolic 00 mm Hg 08/20/2024 Height 66.25 in 08/20/2024 Blood pressure systolic 000 mm Hg 08/20/2024 Weight 175 lbs 08/20/2024 BMI 28.03 kg/m2 08/20/2024 Encounters Encounter Location Date Provider Diagnosis [facility] [address] [place] [phone] 08/20/2024 Chapin Sánchez Jr Irritable bowel syndrome with diarrhea K58.0 ; GERD without esophagitis K21.9 and Colon cancer screening Z12.11 [facility] [address] [place] [phone] 05/17/2024 Chapin Sánchez Jr [facility] [address] [place] [phone] 04/03/2025 Chapin Sánchez Jr Assessments Encounter Date Diagnosis (ICD Code) Assessment Notes Treatment Notes Treatment Clinical Notes Section Notes 08/20/2024 Irritable bowel syndrome with diarrhea (ICD-10 - K58.0) We discussed IBS today. We discussed gastroesophageal reflux disease. We discussed colon cancer screening. She will continue her present regimen. She will avoid foods that cause her symptoms. We discussed diet, lifestyle modifications, and weight management regarding the treatment of reflux. She is due for followup colonoscopy in May and was advised to call the summer to schedule a date. She will stop aspirin one week before the procedure. 08/20/2024 GERD without esophagitis (ICD-10 - K21.9) We discussed IBS today. We discussed gastroesophageal reflux disease. We discussed colon cancer screening. She will continue her present regimen. She will avoid foods that cause her symptoms. We discussed diet, lifestyle modifications, and weight management regarding the treatment of reflux. She is due for followup colonoscopy in May and was advised to call the summer to schedule a date. She will stop aspirin one week before the procedure. 08/20/2024 Colon cancer screening (ICD-10 - Z12.11) Colonoscopy material was printed We discussed IBS today. We discussed gastroesophageal reflux disease. We discussed colon cancer screening. She will continue her present regimen. She will avoid foods that cause her symptoms. We discussed diet, lifestyle modifications, and weight management regarding the treatment of reflux. She is due for followup colonoscopy in May and was advised to call the summer to schedule a date. She will stop aspirin one week before the procedure. Plan Of Treatment Pending Test Test Name Order Date CLOSTRIDIUM DIFF TOXIN A&B (C DIFF) 06/08 STOOL WBC 06/22/2013 OVA & PARASITES (O&P) 06/22/2013 CULTURE, STOOL 06/22/2013 Future Test Test Name Order Date COLONOSCOPY 10/03/2014 COLONOSCOPY 04/23/2020 COLONOSCOPY 08/20/2024 Next Appt Details Provider Name:Chapin cook , 05/30/2025 03:15:00 PM, [address] [place] [address], [address], [place], [phone], Insurance Providers Payer Name Payer Address Payer Phone Subscriber Number Group Number Insured Name Patient Relationship to Insured Coverage Start Date Coverage End Date [facility] [address] [place] [phone] [id number] GEOFF GAR Self - patient is the insured Medical (General) History Medical History History ICD Code Irritable bowel syndrome with diarrhea p redominance migraine headache disk disease ectopic palpitations elevated cholesterol Colonoscopy 05/27 tubular adenoma, five- year followup Surgical History Surgery Date(Month/Year) back surgeries foot surgery carpal tunnel release-right hand Left ankle fracture 2020 Hospitalization History Reason Date(Month/Year)
--- OUTSIDE RECORDS SUMMARY | 2025-05-02 12:05 | XMS_ITS | Encounter Summary ---
Author Organization [facility] Address [address] [facility] [address] [place] [address] Phone Care Team Providers Care Apartment Maintenance Technician Name Role Phone Raghu France MD Primary Care Provider Encounter Details Date Type Department Care Team (Late st Contact Info) Description 03/14/2018 Ancillary Orders Virtual Department [address] [place] [address] Tulio Ford MD [address] [place] [phone] [email or web address] Low back pain without sciatica, unspecified back pain laterality, unspecified chronicity; Pelvic pain in female Social History Tobacco Use Types Packs/Day Years Used Date Smoking Tobacco: Never Assessed Comments Unknown Sex and Gender Information Value Date Recorded Sex Assigned at Not on file Legal Sex Female 9:51 PM EDT Gender Identity Not on file Sexual Orientation Not on file documented as of this encounter Plan of Treatment Not on file documented as of this encounter Results * NM Bone Scan Whole Body (04/07/2018 1:15 PM EDT) Anatomical Region Laterality Modality Shoulder Right, Shoulder Lef t, Arm Left, Arm Right, Elbow Left, Elbow Right, Forearm Left, Forearm Right, Wrist Right, Wrist Left, Hand Left, Hand Right, Hip Left, Hip Right, Hip Bilateral, Thigh Left, Thigh Right, Knee Left, Knee Right, Knee Bilateral, Leg Left, Leg Right, Ankle Left, Ankle Right, Foot Left, Foot Right, Pelvis Nucle ar Medicine 04/07/2018 1:18 PM EDT Impressions 04/07/2018 1:36 PM EDT Minor mild uptake evident in the thoracolumbar spine with postsurgical change and degenerative changes. The findings are relatively minimal. S/S: MID back pain x6-9 months, low back pain x5 years, prior spinal fusion and lumbar region POS - [id number] Narrative 04/07/2018 1:36 PM EDT DOSE: 28.4 mCi Tc-99m labeled MDP COMPARISON: Thoracic spine x-rays October 10, 2017 and lumbar x-rays May 01, 2010 FINDINGS: Whole body imaging is obtained. There are 2 functioning kidneys. There is minor mottled activity evident in the thoracolumbar spine which is consistent with a combination of prior surgical intervention in the lower lumbar spine and degenerative changes. Also seen are mild areas of activity in the feet consistent with degenerative change. The exam is otherwise unremarkable. No findings of acute compression fracture evident. No findings of more significant disease are seen. Procedure Note Hernandez Salinas MD - 04/07/2018 DOSE: 28.4 mCi Tc-99m labeled MDP COMPARISON: Thoracic spine x-rays October 10, 2017 and lumbar x-raysSept2009 FINDINGS: Whole body imaging is obtained. There are 2 functioning kidneys. There is minor mottled activity evident in the thoracolumbar spine whichis consistent with a combination of prior surgical intervention in thelower lumbar spine and degenerative changes. Also seen are mild areas ofactivity in the feet consistent with degenerative change. The exam isotherwise unremarkable. No findings of acute compression fracture evident. No findings of moresignificant disease are seen. IMPRESSION: Minor mild uptake evident in the thoracolumbar spine with postsurgicalchange and degenerative changes. The findings are relatively minimal. S/S: MID back pain x6-9 months, low back pain x5 years, prior spinalfusion and lumbar region POS - [id number] Tulio Ford MD [facility] NM BONE SCAN Final Result documented in this encounter Visit Diagnoses Diagnosis Low back pain without sciatica, unspecified back pain laterality, unspecified chronicity Pelvic pain in female Unspecified symptom associated with female genital organs Low back pain without sciatica, unspecified back pain laterality, unspecified chronicity Pelvic pain in female Unspecified symptom associated with female genital organs documented in this encounter Care Teams Apartment Maintenance Technician Relationship Specialty Start Date End Date Raghu France MD [address] [place] [address] [place] [address] PCP - General Internal Medicine 10/10/17 documented as of this encounter Additional Source Comments The information contained in this document represents components of the legal health record. It is not the complete legal health record.[facility]
--- OUTSIDE RECORDS SUMMARY | 2025-05-02 12:06 | XMS_ITS | Encounter Summary ---
Author Organization [facility] Address [address] [facility] [address] [place] [address] Phone Care Team Providers Care Clerical Support Name Role Phone Raghu France MD Primary Care Provider Encounter Details Date Type Department Care Team (Late st Contact Info) Description 08/18/2023 Procedure Pass [facility], [address] [place] [address] Social History Tobacco Use Types Packs/Day Years [...] on file documented as of this encounter Visit Diagnoses Not on filedocumented in this encounter Care Teams Clerical Support Relationship Specialty Start Date End Date Raghu France MD [address] [place] [address] [place] [address] PCP - General Internal Medicine 10/10/17 documented as of this encounter Additional Source Comments The information contained in this document represents components of the legal health record. It is not the complete legal health record.[facility]
--- OUTSIDE RECORDS SUMMARY | 2025-05-02 12:06 | XMS_ITS | Patient Health Record ---
Author Organization [facility] Address [address] [facility] [place] [address] Care Team Providers Care Dope Maintenance Worker Name Role Phone Christian Saucedo MD Primary Care Provider Alex Graves Unavailable [phone] Allergies Allergen (clinical drug ingredient) Drug/Non Drug [...] 1 tablet Orally Fo ur times a day; Duration: 30 day(s) Unknown Propranolol HCl Acti ve Meclizine HCl 25 MG 1 tablet as needed O rally Once a day; Duration: 30 day(s) Unknown Keflex 500 500 MG 1 capsule Orally nataly ry 12 hrs; Duration: 10 day(s) 08/20/2013 Unknown Soma Unknown Nabumetone 750 MG 1 tablet Orally ONCE A DAY WITH FOOD; Duration: 30 day(s) 05/13/2011 Unknown Atorvastatin Calcium Active Atenolol Unknown Morphine Sulfate Unk nown Vicodin prn Unknown LORazepam Unknown Social History Tobacco Use: Social History Observation Description Date Details (start date - stop date) Never Smoker NA - NA Tobacco Control (Standard) Question Answer Notes Tobacco use: Nonsmoker Additional Findings: Tobacco non-user Current no nsmoker AUDIT-C (Standard) Question Answer Notes Did you have a drink containing alcohol in the p ast year? No Points 0 Interpretation Negative Plan Of Treatment Pending Test Test Name Order Date [id number] NAIL, 6 OR MORE 05/10/2018 [id number]-Mkhnzzch Plate 04/05/2011 [id number] Plate 05/13/2011 [id number] 05/03/2012 [id number] 08/09/2013 44121- Debride <25 sq cm 05/18/2012 43933- Debride <25 sq cm 05/26/2011 [id number] SKIN/TISSUE 08/20/2013 Next Appt Details Provider Name:Alex Francisco , 05/28/2025 01:00:00 PM, [address] [place], [phone], Insurance Providers Payer Name Payer Address Payer Phone Subscriber Number Group Number Insured Name Patient Relationship to Insured Coverage Start Date Coverage End Date Medicare [facility] [address] [place] [phone] [id number] Warren Danna Self - patient is the insured [facility] [address] [place] [id number] Mango Kelleyna Self - patient is the insured Medical (General) History Medical History History ICD Code reflux mumps measles headaches/migraines chicken pox back, hip, knee pain Hammer toe undefined High Blood Pressure Bone implants/screws spinal fusion Degenerative Disc disease Surgical History Surgery Date(Month/Year) spinal fusion 2004 back surgery 2002 Hospitalization History Reason Date(Month/Year) 05/2013 Patient went to [facility] for dehydration. 03/2013 Patient was in [facility] for dehydration. 11/2012
--- OUTSIDE RECORDS SUMMARY | 2025-05-02 12:06 | XMS_ITS | Clinical Summary ---
Author Organization [facility] Address [address] [place] [address] Phone Care Team Providers Care Refinery Operator Name Role Phone Raghu France MD Primary Care Provider Allergies Active Allergy Reactions Criticality Noted Date Comments Gadolinium-Containing Contrast Media Hives Medium 09/02/2023 Patient had hives after scan around 2002 ? Required Benadryl Social History Tobacco Use Types Packs/Day Years [...] on file Sexual Orientation Not on file Last Filed Vital Signs Vital Sign Reading Time Taken Comments Blood Pressure - - Pulse - - Temperature - - Respiratory Rate - - Oxygen Saturation - - Inhaled Oxygen Concentration - - Weight 81.6 kg (180 lb) 08/27/2023 4:26 PM EST Height 165.1 cm (5' 5 ) 08/27/2023 4:26 PM EST Body Mass Index 29.95 08/27/2023 4:26 PM EST Plan of Treatment Not on file Medical Devices Not on file Insurance MEDIC[facility] PART [facility] REPLAC[facility] MEDICARE PART A & B [facility] MEDICARE REPLACEMENT MEDICARE PART A & B [facility] MED[facility] PART [facility] & [facility] MEDICARE PART A & [facility] MEDIC[facility]PLAC[facility] MEDICARE PART A & B [facility] MEDICARE REPLACEMENT MEDICARE PART A & B [facility] MEDICARE REPLACEMENT WORKERS COMPENSATION Care Teams Refinery Operator Relationship Specialty Start Date End Date Raghu France MD [address] [place] [address] [place] [address] PCP - General Internal Medicine 10/10/17 Additional Source Comments The information contained in this document represents components of the legal health record. It is not the complete legal health record.[facility]
== END 2025-05-02 11:38 | disposition home or self-care (01) ==
LOC: HO.HOS 10:01
PROVIDERS: PCP Internal Medicine; Visit Provider Physician Assistant
DX: M25.572 Pain in left ankle and joints of left foot (principal); Z98.890 Other specified postprocedural states; G89.29 Other chronic pain
CPT/HCPCS: 99213

== ENCOUNTER → 2025-05-02 10:08 | Outpatient (BNV) | payer MEDICARE, SELFPAY | PROVIDERS: Visit Provider Radiology Diagnostic Radiology | DX: M25.572 Pain in left ankle and joints of left foot (principal) | CPT/HCPCS: 73610 ==

== ENCOUNTER 2025-05-02 11:31 | Outpatient (REF) | payer MEDICARE, SELFPAY ==
--- OUTSIDE RECORDS SUMMARY | 2025-02-16 05:00 | XMS_ITS ---
Author Organization [employer] Address [address] [phone] Care Team Providers Care Dukey Rider Name Role Phone Migration, Provider Unavailable [phone] REASON FOR VISIT EMR-Geo Encounters Encounter Location Date Provider Diagnosis [facility] [address] [phone] 02/16/2025 Provider Migration Plan Of Treatment No Information Progress Notes * Danna KELLEYDOB: (65 yo F)Acc No.[id number]:02/16/2025 Patient: Mango REGANjosiah Corbin :1960 A ge:64 Y S ex:Female Address:[address] [place] [place], [address] Subjective: * Chief Complaints: * E MR-Geo * Medical History: * Surgical History: * Hospitalization/Major Diagno stic Procedure: * Medications: Objective: * Vitals: * Physical Examination: Assessment: Plan: * Treatment: * Procedure Codes: * * Date:
--- OUTSIDE RECORDS SUMMARY | 2025-02-17 05:00 | XMS_ITS ---
Author Organization [facility] [place] [address] [phone] Care Team Providers Care Channel Lip Wetter Name Role Phone Migration, Provider Unavailable [phone] REASON FOR VISIT EMR-Geo Encounters Encounter Location Date Provider Diagnosis [facility] [address] [phone] 02/17/2025 Provider Migration Plan Of Treatment No Information Progress Notes * Danna KELLEYDOB: (65 yo F)Acc No.[id number]:02/17/2025 Patient: Mango REGANjosiah Corbin :1960 A ge:64 Y S ex:Female Address[address] [place], [address] Subjective: * Chief Complaints: * E MR-Geo * Medical History: * Surgical History: * Hospitalization/Major Diagno stic Procedure: * Medications: Objective: * Vitals: * Physical Examination: Assessment: Plan: * Treatment: * Procedure Codes: * * Date:
--- NOTE | ~2025-05-02 | XR_ITS ---
EXAMINATION: XR ANKLE 3 OR MORE VIEWS LEFT HISTORY: M25.579 - Pain in unspecified ankle and joints of unspecified foot COMPARISON: Comparison is made with the prior examination dated 02/14/2023. FINDINGS: Three views of the left ankle are submitted. Osseous mineralization is normal. Again seen is internal fixation of the distal fibula with a sideplate and multiple orthopedic screws. No acute fracture is seen. A well-corticated osseous densities again seen adjacent to the tip of the medial malleolus, compatible with old trauma. There is a calcaneal spur at the insertion of the Achilles tendon. The joint spaces are preserved. The soft tissues are unremarkable. XR/XR ankle LT min 3V IMPRESSION: Internal fixation of the distal fibula. No acute abnormality. Electronically signed by: Dagoberto Gillespie MD 05/02/2025 11:02 AM EDT
--- OUTSIDE RECORDS SUMMARY | 2025-05-03 13:28 | XMS_ITS | Encounter Summary ---
Author Organization [facility] Address [address] [facility] [address] [place] [phone] Phone Care Team Providers Care Software Quality Specialist Name Role Phone Raghu France MD Primary Care Provider Encounter Details Date Type Department Care Team (Late st Contact Info) Description 08/18/2023 Procedure Pass [facility], [address] [place] [address] Social History Tobacco Use Types Packs/Day Years [...] on filedocumented in this encounter Care Teams Software Quality Specialist Relationship Specialty Start Date End Date Raghu France MD [address] [place] [address] [place] [address] PCP - General Internal Medicine 10/10/17 documented as of this encounter Additional Source Comments The information contained in this document represents components of the legal health record. It is not the complete legal health record.[facility]
--- OUTSIDE RECORDS SUMMARY | 2025-05-03 13:28 | XMS_ITS | Encounter Summary ---
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 It is not the complete legal health record.[facility]
--- OUTSIDE RECORDS SUMMARY | 2025-05-03 13:28 | XMS_ITS | Encounter Summary ---
Author Organization [facility] Address [address] [facility] [address] [place] [address] Phone Care Team Providers Care Director Of Business Systems Name Role Phone Raghu France MD Primary Care Provider Encounter Details Date Type Department Care Team (Late st Contact Info) Description 06/13/2023 Ancillary Orders [facility], X-Ray - [address] [address] Tulio Ford MD [address] [place] [address] [email or web address] Low back pain, unspecified back pain laterality, [...] region documented in this encounter Care Teams Director Of Business Systems Relationship Specialty Start Date End Date Raghu France MD [address] [place] [address] [place] [address] PCP - General Internal Medicine 10/10/17 documented as of this encounter Additional Source Comments The information contained in this document represents components of the legal health record. It is not the complete legal health record.[facility]
--- OUTSIDE RECORDS SUMMARY | 2025-05-03 13:28 | XMS_ITS | Patient Health Record ---
Author Organization [facility] Address [address] [place] [address] Care Team Providers Care Direct Service Provider Name Role Phone Christian Saucedo MD Primary Care Provider Chapin Vaca Jr Unavailable [phone] Allergies Allergen (clinical drug ingredient) Drug/Non Drug [...] Problem Status W/U Status Risk Notes Problem 813088993 Colon cancer screening (Z12.11) Active confirmed Problem 214465086 Irritable bowel syndrome with diarrhea (K58.0) Active confirmed Problem 214578785 Diverticulosis o f large intestine without hemorrhage (K57.30) Active confirmed Problem 370338155 GERD without esophagitis (K21.9) Active confirmed Vital Signs Temperature 97.1 degrees Fahrenheit 08/20/2024 Blood pressure diastolic 00 mm Hg 08/20/2024 Height 66.25 in 08/20/2024 Blood pressure systolic 000 mm Hg 08/20/2024 Weight 175 lbs 08/20/2024 BMI 28.03 kg/m2 08/20/2024 Encounters Encounter Location Date Provider Diagnosis [facility] [address] [place] [phone] 08/20/2024 Chapin Sánchez Jr Irritable bowel syndrome with diarrhea K58.0 ; GERD without esophagitis K21.9 and Colon cancer screening Z12.11 [facility] [address] [place] [phone] 05/17/2024 Chapin Sánchez Jr [facility] [address] [place] [phone] 04/03/2025 Chapin Sánchez Jr Assessments Encounter Date [...] Provider Name:Chapin cook , 05/30/2025 03:15:00 PM, [address] [place] [address], [address], [place], [address], Insurance Providers Payer Name Payer Address Payer Phone Subscriber Number Group Number Insured Name Patient Relationship to Insured Coverage Start Date Coverage End Date [facility] [address] [place] [address] [phone] [id number] GEOFF GAR Self - patient is the [...]
--- OUTSIDE RECORDS SUMMARY | 2025-05-03 13:28 | XMS_ITS | Patient Health Record ---
Author Organization [facility] Address [address] [facility] [place] [address] Care Team Providers Care Medical Assistant Secretary Name Role Phone Christian Saucedo MD Primary Care Provider Alex Graves Unavailable [phone] Allergies Allergen (clinical drug ingredient) Drug/Non Drug [...] Treatment Pending Test Test Name Order Date [id number] NAIL, 6 OR MORE 05/10/2018 [id number] Plate 04/05/2011 [id number] Plate 05/13/2011 [id number] 05/03/2012 [id number] 08/09/2013 99949- Debride <25 sq cm 05/18/2012 32929- Debride <25 sq cm 05/26/2011 [id number] SKIN/TISSUE 08/20/2013 Next Appt Details Provider Name:Alex Francisco , 05/28/2025 01:00:00 PM, [address] [place], [address], Insurance Providers Payer Name Payer Address Payer Phone Subscriber Number Group Number Insured Name Patient Relationship to Insured Coverage Start Date Coverage End Date Medicare [facility] [address] [place] [address] [id number] [place] Danna Self - patient is the insured [facility] [address] [place] [id number] Mango Kelleyna Self - patient is the [...]
--- OUTSIDE RECORDS SUMMARY | 2025-05-03 13:28 | XMS_ITS | Encounter Summary ---
Author Organization [facility] Address [address] [address] Phone Care Team Providers Care Manager Respiratory Care Name Role Phone Raghu France MD Primary Care Provider Reason for Referral * MRI/CAT Scan - Closed Specialty Diagnoses / Procedures Referred By Contac t Referred To Contact Radiology Diagnoses Radiculopathy, lumbar region Other intervertebral disc displacement, lumbar region Fusion of spine, lumbar region Procedures MRI Lumbar Spine CHG MRI, LUMBAR SPINE CHG MRI, LUMBAR SPINE COMBO Tulio Ford MD Phone: tel: fax: mailto:[email or web address] Referral ID Status Reason Start Date Expiration Date Visits Re quested Visits Authorized [id number] Closed 08/18/2023 09/30/2023 1 1 Encounter Details Date Type Department Care Team (Latest Contact Info) Description 08/18/2023 Transcribe Orders Virtual Department [address] [place] [address] Tulio Ford MD [address] [place] [phone] [email or web address] Radiculopathy, lumbar region (Primary Dx); Other intervertebral [...] right foraminal stenosis. Tulio Ford MD [facility] MR XSPECIALTY Final Result documented in this encounter Visit Diagnoses Diagnosis Radiculopathy, lumbar region- Primary Thoracic or lumbosacral neuritis or radiculitis, unspecified Other intervertebral disc displacement, lumbar region Fusion of spine, lumbar region Radiculopathy, lumbar region Thoracic or lumbosacral neuritis or radiculitis, unspecified Other intervertebral disc displacement, lumbar region Fusion of spine, lumbar region documented in this encounter Care Teams Manager Respiratory Care Relationship Specialty Start Date End Date Raghu France MD [address] [place] [address] [place] [address] PCP - General Internal Medicine 10/10/17 documented as of this encounter Additional Source Comments The information contained in this document represents components of the legal health record. It is not the complete legal health record.[facility]
--- OUTSIDE RECORDS SUMMARY | 2025-05-03 13:28 | XMS_ITS | Patient Health Record ---
Author Organization [facility] Address [address] [id number] Care Team Providers Care Swimming Pool Salesperson Name Role Phone Migration, Provider Unavailable [phone] Reason For Referral No Information Encounters Encounter Location Date Provider Diagnosis [facility] [address] [phone] 02/16/2025 Provider Migration [facility] [address] [phone] 02/17/2025 Provider Migration Plan Of Treatment No Information
--- OUTSIDE RECORDS SUMMARY | 2025-05-03 13:28 | XMS_ITS | Encounter Summary ---
Author Organization [facility] Address [address] [address] [address] Phone Care Team Providers Care Mobile Architect Name Role Phone Raghu France MD Primary Care Provider Encounter Details Date Type Department Care Team (Late st Contact Info) Description 03/14/2018 Ancillary Orders Virtual Department [address] [place] [address] Tulio Ford MD [address] [place] [phone] [email or web address] Low back pain without sciatica, unspecified back [...] region POS - [id number] Tulio Ford MD [facility] NM BONE SCAN Final Result documented in this encounter Visit Diagnoses Diagnosis Low back pain without sciatica, unspecified back pain laterality, unspecified chronicity Pelvic pain in female Unspecified symptom associated with female genital organs Low back pain without sciatica, unspecified back pain laterality, unspecified chronicity Pelvic pain in female Unspecified symptom associated with female genital organs documented in this encounter Care Teams Mobile Architect Relationship Specialty Start Date End Date Raghu France MD [address] [place] [address] [place] [address] PCP - General Internal Medicine 10/10/17 documented as of this encounter Additional Source Comments The information contained in this document represents components of the legal health record. It is not the complete legal health record.[facility]
== END 2025-05-02 11:32 | disposition home or self-care (01) ==
LOC: HO.HOSX 11:31
PROVIDERS: Visit Provider Physician Assistant
DX: Z47.89 Encounter for other orthopedic aftercare (principal); M25.572 Pain in left ankle and joints of left foot; G89.29 Other chronic pain; M25.472 Effusion, left ankle; Z98.890 Other specified postprocedural states
CPT/HCPCS: 73610; 99212

== ENCOUNTER 2025-07-02 06:24 | Day surgery (SDC) | payer MEDICARE, SELFPAY ==
--- OUTSIDE RECORDS SUMMARY | 2025-02-16 05:00 | XMS_ITS ---
Author Organization [employer] [facility] Address [address] [phone] Care Team Providers Care Shipping/Receiving Clerk Name Role Phone Migration, Provider Unavailable [phone] REASON FOR VISIT EMR-Geo Encounters Encounter Location Date Provider Diagnosis [facility] [address] [phone] 02/16/2025 Provider Migration Plan Of Treatment No Information Progress Notes * Danna KELLEYDOB: (65 yo F)Acc No.[id number]:02/16/2025 Patient: Mango REGANjosiah Corbin :1960 A ge:64 Y S ex:Female Address[address] [place] [place], [address] Subjective: * Chief Complaints: * E MR-Geo * Medical History: * Surgical History: * Hospitalization/Major Diagno stic Procedure: * Medications: Objective: * Vitals: * Physical Examination: Assessment: Plan: * Treatment: * Procedure Codes: * * Date:
--- OUTSIDE RECORDS SUMMARY | 2025-02-17 05:00 | XMS_ITS ---
Author Organization [facility] [facility] [place] [address] [phone] Care Team Providers Care Motor Boss Name Role Phone Migration, Provider Unavailable [phone] REASON FOR VISIT EMR-Geo Encounters Encounter Location Date Provider Diagnosis [facility] [address] [phone] 02/17/2025 Provider Migration Plan Of Treatment No Information Progress Notes * Danna KELLEYDOB: (65 yo F)Acc No.[id number]:02/17/2025 Patient: Mango REGANjosiah Corbin :1960 A ge:64 Y S ex:Female Address[address] [place] [place], [address] Subjective: * Chief Complaints: * E MR-Geo * Medical History: * Surgical History: * Hospitalization/Major Diagno stic Procedure: * Medications: Objective: * Vitals: * Physical Examination: Assessment: Plan: * Treatment: * Procedure Codes: * * Date:
--- OUTSIDE RECORDS SUMMARY | 2025-05-30 11:15 | XMS_ITS ---
Author Organization [facility] Address [address] [place] [address] Care Team Providers Care Legal Administrative Secretary Name Role Phone Christian Saucedo MD Primary Care Provider Chapin Vaca Jr [phone] Allergies Allergen (clinical drug ingredient) Drug/Non Drug Allergy documented on EMR Reaction Allergy Type Onset Date Status oxycodone OxyContin Unknown Drug Allergy Active intravenous contast material (uncoded) Unknown Allergy Active REASON FOR VISIT Patient presents today for screening colonoscopy Medications Medication SIG (Take, Route, Frequency, Duration) Notes Start Date End Date Status Timolol Maleate 0.5 % Ophthalmic; Duration: 90 Active amLODIPine Besy-Benazepril HCl 5-10 MG Oral; Duration: 90 Active QUEtiapine Fumarate 50 MG Oral; Duration: 90 Active Dicyclomine HCl 20 MG 1 tablet Orally Fo ur times a day/prn; Duration: 30 days 10/01/2013 Active Diphenoxylate-Atropine 2.5-0.025 MG 1 Oral Four times a day; Duration: 30 days As needed 04/03/2025 Active Venlafaxine HCl ER 150 MG Oral; Duration: 30 Active Atorvastatin Calcium 10 MG 1 tablet Oral ly Once a day; Duration: 30 day(s) Active Propranolol HCl ER 60 MG Oral; Duration: 30 Active Vicodin 5-300 MG 1 tablet as needed O rally prn Active Centrum Silver 1 1 Orally QD A ctive LORazepam 1 MG 1 ml at bedtime as n eeded Orally Once a day Active Social History Tobacco Use: Social History Observation Description Date Details (start date - stop date) Former Smoker NA - NA Tobacco Use/Smoking Question Answer Notes Patient is a former smoker How long has it been since you last smoked? 3-6 months Alcohol Screen Question Answer Notes Did you have a drink containing alcohol in the p ast year? No Points 0 Interpretation Negative Vital Signs Temperature 96.8 degrees Fahrenheit 05/30/20 25 Blood pressure systolic 001 mm Hg 05/30/20 25 Blood pressure diastolic 01 mm Hg 025 Height 66.25 in 05/30/2025 Weight 189.9 lbs 05/30/2025 BMI 30.42 kg/m2 05/30/2025 Encounters Encounter Location Date Provider Diagnosis [facility] [address] [place] [address] 05/30/2025 Chapin Sánchez Jr Irritable bowel syndrome with diarrhea K58.0 ; Colon cancer screening Z12.11 and GERD without esophagitis K21.9 Assessments Encounter Date Diagnosis (ICD Code) Assessment Notes Treatment Notes Treatment Clinical Notes Section Notes 05/30/2025 Irritable bowel syndrome with diarrhea (ICD-10 - K58.0) At this time, she is doing well. She will continue her present regimen for her IBS with diarrhea. She is due for follow-up colonoscopy. This will be arranged. She understands risks and benefits and agrees to proceed. Reflux symptoms are under good control and she will continue dietary measures. We discussed diet, lifestyle modifications, and weight management regarding the treatment of reflux today. 05/30/2025 Colon cancer screening (ICD-10 - Z12.11) At this time, she is doing well. She will continue her present regimen for her IBS with diarrhea. She is due for follow-up colonoscopy. This will be arranged. She understands risks and benefits and agrees to proceed. Reflux symptoms are under good control and she will continue dietary measures. We discussed diet, lifestyle modifications, and weight management regarding the treatment of reflux today. 05/30/2025 GERD without esophagitis (ICD-10 - K21.9) At this time, she is doing well. She will continue her present regimen for her IBS with diarrhea. She is due for follow-up colonoscopy. This will be arranged. She understands risks and benefits and agrees to proceed. Reflux symptoms are under good control and she will continue dietary measures. We discussed diet, lifestyle modifications, and weight management regarding the treatment of reflux today. Plan Of Treatment Future Test Test Name Order Date COLONOSCOPY 05/30/2025 Next Appt Details Follow Up: 1 Year, Reason: Provider Name:Chapin Park joey , 07/02/2025 08:20:00 AM, [address] [place] [address] , [place], [place], [phone], Progress Notes * DANNA GAR LDOB:1960 (65 yo F)Acc No.[id number]:05/30/2025 Progress Notes Patient: DANNA REGAN Provider: Fransisco Sánchez MD :1960 A ge:65 Y S ex:Female Date:05/30/2025 Address:[address] [place], [place] [phone] Pcp:Christian Saucedo MD Subjective: * Chief Complaints: * 1 . Patient presents today for screening colonoscopy. * HPI: N ew symptom(s): Danna returns today for follow-up of multiple GI issues. IBS with diarrhea predominance is her major problem. She takes Lomotil 1 at bedtime and sometimes in the morning. She gets occasional rectal bleeding from hemorrhoids. She does sometimes have diarrhea in the morning but can have periods when bowels are pretty normal throughout a week. Weight and appetite have been stable. Previous colonoscopy in 2019 showed a tubular adenoma for which 5-year follow-up was recommended. We reviewed this today. Reflux symptoms are under good control. She has no dysphagia, hematemesis, or melena. She continues on dicyclomine as needed and diphenoxylate fairly regularly. No changes to her other medications are reported except as outlined. * Medical History: I rritable bowel syndrome with diarrhea predominance, Migraine headache, Disk disease, Ectopic , Palpitations, Elevated cholesterol, Colonoscopy 05/27 tubular adenoma, five-year followup. * Surgical History: b ack surgeries , foot surgery , carpal tunnel release-right hand , Left ankle fracture 2020. * Family History: F ather: , diagnosed with HTN (hypertension), Heart disease, Diabetes. M other: alive. S iblings: , brother of cancer at age 55. The patient has a negative family history of G.I. malgnancy. Father had liver cancer. * Social History: T obacco Use: T obacco Use/Smoking P atient is a f ormer smoker, H ow long has it been since you last smoked? 3 -6 months. D rugs/Alcohol: A lcohol Screen D id you have a drink containing alcohol in the past year? N o, P oints 0 , I nterpretation N egative. M iscellaneous: M arital status: . Occupation: disabled. * Medications: T aking LORazepam 1 MG Tablet 1 ml at bedtime as needed Orally Once a day , Taking Vicodin 5-300 MG Tablet 1 tablet as needed Orally prn , Taking Centrum Silver 1 Tablet 1 Orally QD , Taking Atorvastatin Calcium 10 MG Tablet 1 tablet Orally Once a day , Taking Venlafaxine HCl ER 150 MG Capsule Extended Release 24 Hour Oral , Taking Propranolol HCl ER 60 MG Capsule Extended Release 24 Hour Oral , Taking Timolol Maleate 0.5 % Solution Ophthalmic , Taking QUEtiapine Fumarate 50 MG Tablet Oral , Taking amLODIPine Besy-Benazepril HCl 5-10 MG Capsule Oral , Taking Diphenoxylate-Atropine 2.5-0.025 MG Tablet 1 Oral Four times a day As needed, Taking Dicyclomine HCl 20 MG Tablet 1 tablet Orally Four times a day/prn , Discontinued MiraLax (colon prep) 17 GM/SCOOP Powder mixed with Gatorade or Crystal Light Orally begin at 5:00 p.m. the day before the procedure , Discontinued Aspirin Adult Low Dose 81 MG Tablet Delayed Release 1 tablet Orally Once a day , Medication List reviewed and reconciled with the patient * Allergies: i ntravenous contast material, OxyContin. Objective: * Vitals: W t: 189.9 lbs, Ht: 66.25 in, BMI: 30.42 Index, BP: 001/01 mm Hg, Temp: 96.8, Wt- k.14. * Examination: G eneral Examination: O n examination today, she appears well. Skin is anicteric. Lungs are clear. Heart shows a regular rate and rhythm. Abdomen is soft without focal masses or tenderness. Extremities are without edema. Assessment: * Assessment: 1. I rritable bowel syndrome with diarrhea - K58.0 (Primary) 2 . C olon cancer screening - Z12.11 3 . G ERD without esophagitis - K21.9 At this time, she is doing w ell. She will continue her present regimen for her IBS with diarrhea. She is due for follow-up colonoscopy. This will be arranged. She understands risks and benefits and agrees to proceed. Reflux symptoms are under good control and she will continue dietary measures. We discussed diet, lifestyle modifications, and weight management regarding the treatment of reflux today. Plan: * Treatment: * Procedure Codes: 3 017F COLORECTAL CA SCREEN DOC REV, 1036F TOBACCO NON-USER, G8785 BP SCR NOT PRFRM REC REASON NOS * Preventive Medicine: Counseling: C are goal follow-up plan: A cecil Normal BMI Follow-up D ietary management education, guidance, and counseling, B PR management provided Y es. Urinary Incontinence: U rinary Incontinence A ssessment: A bsent, P tejas of care documented: N o, reason not specified. Screenings: F all Risk Screening F all Risk Assessment: N o falls in the past year, S creening: N o falls in the past year, P tejas of Care: N ot documented, no reason specified. * Follow Up: 1 Year * * Sign off status: Completed true * Provider: Fransisco Sánchez MD Date: Generated for Cristin huizar/Faviola/Pennyitting on: 02:13 PM EDT History and Physical Notes * HPI (History of Present Illness) Category Sub-Category Detail Notes Category Not es New symptom(s) Danna returns today for follow-up of multiple GI issues. IBS with diarrhea predominance is her major problem. She takes Lomotil 1 at bedtime and sometimes in the morning. She gets occasional rectal bleeding from hemorrhoids. She does sometimes have diarrhea in the morning but can have periods when bowels are pretty normal throughout a week. Weight and appetite have been stable. Previous colonoscopy in 2019 showed a tubular adenoma for which 5-year follow-up was recommended. We reviewed this today. Reflux symptoms are under good control. She has no dysphagia, hematemesis, or melena. She continues on dicyclomine as needed and diphenoxylate fairly regularly. No changes to her other medications are reported except as outlined. Examination Category Sub-Category Detail Notes Category Not es General Examination On exami nation today, she appears well. Skin is anicteric. Lungs are clear. Heart shows a regular rate and rhythm. Abdomen is soft without focal masses or tenderness. Extremities are without edema.
--- OUTSIDE RECORDS SUMMARY | 2025-06-03 14:13 | XMS_ITS | Patient Health Record ---
Author Organization [facility] Address [address] [place] [phone] Care Team Providers Care Senior Systems Programmer Name Role Phone Christian Saucedo MD Primary Care Provider Chapin Vaca Jr Unavailable [phone] Allergies Allergen (clinical drug ingredient) Drug/Non Drug Allergy documented on EMR Reaction Allergy Type Onset Date Status oxycodone OxyContin Unknown Drug Allergy Active intravenous contast material (uncoded) Unknown Allergy Active Reason For Referral No Information Medications Medication SIG (Take, Route, Frequency, Duration) Notes Start Date End Date Status Venlafaxine HCl ER 150 MG Oral; Duration: 30 Active Atorvastatin Calcium 10 MG 1 tablet Oral ly Once a day; Duration: 30 day(s) Active Timolol Maleate 0.5 % Ophthalmic; Duration: 90 Active Propranolol HCl ER 60 MG Oral; Duration: 30 Active amLODIPine Besy-Benazepril HCl 5-10 MG Oral; Duration: 90 Active QUEtiapine Fumarate 50 MG Oral; Duration: 90 Active Dicyclomine HCl 20 MG 1 tablet Orally Fo ur times a day/prn; Duration: 30 days 10/01/2013 Active Diphenoxylate-Atropine 2.5-0.025 MG 1 Oral Four times a day; Duration: 30 days As needed 04/03/2025 Active Vicodin 5-300 MG 1 tablet as needed O rally prn Active LORazepam 1 MG 1 ml at bedtime as n eeded Orally Once a day Active Centrum Silver 1 1 Orally QD A ctive Immunizations Vaccine Route Administration Date Status Comme nts Flu vaccine no Preserv 3 and > Unknown 06/15/2016 Admin istered Influenza Unknown 04/12/2018 Administered Influenza Unknown 06/08/2019 Administered Influenza Unknown 05/25/2022 Administered Influenza Unknown 05/29/2024 Administered Influenza Unknown 05/30/2025 Administered Social History Tobacco Use: Social History [...] Problem Status W/U Status Risk Notes Problem Colon cancer screening (736133957) Colon cancer screening (Z12.11) Active confirmed Problem Irritable bowel syndrome with diarrhea (320088648) Irritable bowel syndrome with diarrhea (K58.0) Active confirmed Problem Diverticular disease of colon (337024847) Diverticulosis of large intestine without hemorrhage (K57.30) Active confirmed Problem Gastroesophageal reflux disease (873098041) GERD without esophagitis (K21.9) Active confirmed Vital Signs Temperature 96.8 degrees Fahrenheit 05/30/2025 Blood pressure diastolic 01 mm Hg 05/30/2025 Height 66.25 in 05/30/2025 Blood pressure systolic 001 mm Hg 05/30/2025 Weight 189.9 lbs 05/30/2025 BMI 30.42 kg/m2 05/30/2025 Encounters Encounter Location Date Provider Diagnosis [facility] [address] [place] [phone] 08/20/2024 Chapin Sánchez Jr Irritable bowel syndrome with diarrhea K58.0 ; GERD without esophagitis K21.9 and Colon cancer screening Z12.11 [facility] [address] [place] [phone] 05/30/2025 Chapin Sánchez Jr Irritable bowel syndrome with diarrhea K58.0 ; Colon cancer screening Z12.11 and GERD without esophagitis K21.9 [facility] [address] [place] [phone] 04/03/2025 Chapin Sánchez Jr [facility] [address] [place] [phone] 05/06/2025 Chapin Sánchez Jr Assessments Encounter Date Diagnosis [...] stop aspirin one week before the procedure. 05/30/2025 Colon cancer screening (ICD-10 - Z12.11) [...] regarding the treatment of reflux today. 05/30/2025 Irritable bowel syndrome with diarrhea (ICD-10 [...] management regarding the treatment of reflux today. 08/20/2024 Colon cancer screening (ICD-10 - Z12.11) [...] stop aspirin one week before the procedure. 05/30/2025 GERD without esophagitis (ICD-10 - K21.9) [...] treatment of reflux today. Plan Of Treatment Pending Test Test Name Order Date CLOSTRIDIUM DIFF TOXIN A&B (C DIFF) 06/08 STOOL WBC 06/22/2013 OVA & PARASITES (O&P) 06/22/2013 CULTURE, STOOL 06/22/2013 Future Test Test Name Order Date COLONOSCOPY 10/03/2014 COLONOSCOPY 04/23/2020 COLONOSCOPY 08/20/2024 COLONOSCOPY 05/30/2025 Next Appt Details Provider Name:Chapin cook Jr, 07/02/2025 08:20:00 AM, [address] [place] [address] , [place], [place], [phone], Insurance Providers Payer Name Payer Address Payer Phone Subscriber Number Group Number Insured Name Patient Relationship to Insured Coverage Start Date Coverage End Date [facility] [address] [place] [address] [phone] [id number] GEOFF GAR Self - patient is the insured Medical (General) History Medical History History ICD Code Irritable bowel syndrome with diarrhea p redominance migraine headache disk disease ectopic palpitations elevated cholesterol Colonoscopy 05/27 tubular adenoma, five- year followup Surgical History Surgery Date(Month/Year) Left ankle fracture 2020 carpal tunnel release-right hand foot surgery back surgeries Hospitalization History Reason Date(Month/Year)
--- OUTSIDE RECORDS SUMMARY | 2025-06-03 14:13 | XMS_ITS | Encounter Summary ---
Author Organization [facility] Address [address] [address] Phone Care Team Providers Care Leather Goods Sales Representative Name Role Phone Raghu France MD Primary Care Provider Reason for Referral * MRI/CAT Scan - Closed Specialty Diagnoses / Procedures Referred By Contac t Referred To Contact Radiology Diagnoses Radiculopathy, lumbar region Other intervertebral disc displacement, lumbar region Fusion of spine, lumbar region Procedures MRI Lumbar Spine CHG MRI, LUMBAR SPINE CHG MRI, LUMBAR SPINE COMBO Tulio Ford MD Phone: tel: fax: mailto:[email or web address] Referral ID Status Reason Start Date Expiration Date Visits Re quested Visits Authorized [id number] Closed 08/18/2023 09/30/2023 1 1 Encounter Details Date Type Department Care Team (Latest Contact Info) Description 08/18/2023 Transcribe Orders Virtual Department [address] [place] [address] Tulio Ford MD [address] [place] [phone] [email or web address] Radiculopathy, lumbar region (Primary Dx); Other intervertebral [...] moderate right foraminal stenosis. Tulio Ford MD [facility] MR XSPECIALTY Final Result documented in this encounter Visit Diagnoses Diagnosis Radiculopathy, lumbar region- Primary Thoracic or lumbosacral neuritis or radiculitis, unspecified Other intervertebral disc displacement, lumbar region Fusion of spine, lumbar region Radiculopathy, lumbar region Thoracic or lumbosacral neuritis or radiculitis, unspecified Other intervertebral disc displacement, lumbar region Fusion of spine, lumbar region documented in this encounter Care Teams Leather Goods Sales Representative Relationship Specialty Start Date End Date Raghu France MD [address] [place] [address] [place] [address] PCP - General Internal Medicine 10/10/17 documented as of this encounter Additional Source Comments The information contained in this document represents components of the legal health record. It is not the complete legal health record.[facility]
--- OUTSIDE RECORDS SUMMARY | 2025-06-03 14:13 | XMS_ITS | Encounter Summary ---
Author Organization [facility] Address [address] [facility] [address] [place] [address] Phone Care Team Providers Care Geological Technical Officer Name Role Phone Raghu France MD Primary Care Provider Encounter Details Date Type Department Care Team (Late st Contact Info) Description 06/13/2023 Ancillary Orders [facility], X-Ray - [address] [address] Tulio Ford MD [address] [place] [phone] [email or web address] Low back pain, unspecified back pain laterality, [...] region documented in this encounter Care Teams Geological Technical Officer Relationship Specialty Start Date End Date Raghu France MD [address] [place] [address] [place] [address] PCP - General Internal Medicine 10/10/17 documented as of this encounter Additional Source Comments The information contained in this document represents components of the legal health record. It is not the complete legal health record.[facility]
--- OUTSIDE RECORDS SUMMARY | 2025-06-03 14:13 | XMS_ITS | Encounter Summary ---
Author Organization [facility] Address [address] [address] Phone Care Team Providers Care Shallot Packer Name Role Phone Raghu France MD Primary Care Provider Encounter Details Date Type Department Care Team (Late st Contact Info) Description 03/14/2018 Ancillary Orders Virtual Department [address] [place] [address] Tulio Ford MD [address] [place] [phone] [email or web address] Low back pain without sciatica, unspecified back [...] region POS - [id number] Tulio Ford MD [facility] [place] BONE SCAN Final Result documented in this encounter Visit Diagnoses Diagnosis Low back pain without sciatica, unspecified back pain laterality, unspecified chronicity Pelvic pain in female Unspecified symptom associated with female genital organs Low back pain without sciatica, unspecified back pain laterality, unspecified chronicity Pelvic pain in female Unspecified symptom associated with female genital organs documented in this encounter Care Teams Shallot Packer Relationship Specialty Start Date End Date Raghu France MD [address] [place] [address] [place] [address] PCP - General Internal Medicine 10/10/17 documented as of this encounter Additional Source Comments The information contained in this document represents components of the legal health record. It is not the complete legal health record.[facility]
--- OUTSIDE RECORDS SUMMARY | 2025-06-03 14:14 | XMS_ITS | Patient Health Record ---
Author Organization [facility] Address [address] [phone] Care Team Providers Care Procedures Analyst Name Role Phone Migration, Provider Unavailable [phone] Reason For Referral No Information Encounters Encounter Location Date Provider Diagnosis [facility] [address] [phone] 02/16/2025 Provider Migration [facility] [address] [phone] 02/17/2025 Provider Migration Plan Of Treatment No Information
--- OUTSIDE RECORDS SUMMARY | 2025-06-03 14:14 | XMS_ITS | Encounter Summary ---
Author Organization [facility] Address [address] [facility] [address] [place] [address] Phone Care Team Providers Care Card Room Manager Name Role Phone Raghu France MD Primary Care Provider Encounter Details Date Type Department Care Team (Late st Contact Info) Description 08/18/2023 Procedure [facility], [address] [place] [address] Social History Tobacco Use Types Packs/Day Years [...] on filedocumented in this encounter Care Teams Card Room Manager Relationship Specialty Start Date End Date Raghu France MD [address] [place] [address] [place] [address] PCP - General Internal Medicine 10/10/17 documented as of this encounter Additional Source Comments The information contained in this document represents components of the legal health record. It is not the complete legal health record.[facility]
--- OUTSIDE RECORDS SUMMARY | 2025-06-03 14:14 | XMS_ITS | Encounter Summary ---
Author Organization [facility] Address [address] [address] Phone Care Team Providers Care Cash Van Salesperson Name Role Phone aRghu France MD Primary Care Provider Encounter Details Date Type Department Care Team (Late st Contact Info) Description 10/10/2017 Ancillary Orders 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 It is not the complete legal health record.[facility]
--- OUTSIDE RECORDS SUMMARY | 2025-06-03 14:15 | XMS_ITS | Patient Health Record ---
[facility] Address [address] [facility] [place] [address] Care Team Providers Care Chief Of Hospital Medicine Name Role Phone Christian Saucedo MD Primary Care Provider Alex Graves Unavailable [phone] Allergies Allergen (clinical drug ingredient) Drug/Non Drug Allergy documented on EMR Reaction Allergy Type Onset Date Status oxycodone OxyContin hives, bruising Drug Allergy A ctive Reason For Referral No Information Medications Medication SIG (Take, Route, Frequency, Duration) Notes Start Date End Date Status Propranolol HCl Acti ve Atenolol Unknown Atorvastatin Calcium 10 MG 1 tablet Oral ly Once a day Active Venlafaxine HCl ER 75 MG 1 capsule with food Orally Once a day Active Inderal LA Unknown LORazepam Active Dicyclomine HCl 20 MG 1 tablet Orally Fo ur times a day; Duration: 30 day(s) Unknown Propranolol HCl ER A ctive Pro-biotic Blend Orally Unk nown QUEtiapine Fumarate Active Meclizine HCl 25 MG 1 tablet as needed Orally Once a day; Duration: 30 day(s) Unknown Soma Unknown Vicodin prn Unknown amLODIPine Besylate 10 MG 1 tablet Orall y Once a day Active Morphine Sulfate Unk nown Venlafaxine HCl ER 150 MG 1 capsule with food Orally Once a day Active LORazepam Unknown Nabumetone 750 MG 1 tablet Orally ONCE A DAY WITH FOOD; Duration: 30 day(s) 05/13/2011 Unknown Effexor Active Immunizations Vaccine Route Administration Date Status Comme nts Influenza Unknown 05/08/2025 Administered Social History Tobacco Use: Social History Observation Description Date Details (start date - stop date) Never Smoker NA - NA Alcohol Screen Question Answer Notes Did you have a drink containing alcohol in the p ast year? No Points 0 Interpretation Negative Tobacco Control (Standard) Question Answer Notes Tobacco use: Nonsmoker Additional Findings: Tobacco non-user Current no nsmoker AUDIT-C (Standard) Question Answer Notes Did you have a drink containing alcohol in the p ast year? No Points 0 Interpretation Negative Problems Problem Type SNOMED Code ICD Code Onset Dates Problem Status W/U Status Risk Notes Problem Bilateral atherosclerosis of arteries of lower limbs (disorder) (54339812934845906 ) Atherosclerosis of artery of both lower extremities (I70.203) Active confirmed Q7(A), Q8(2B), Q9(1B,2 C) Vital Signs Blood pressure diastolic 65 mm Hg 05/28/2025 Height 5 ft 5 in in 05/28/2025 Blood pressure systolic 130 mm Hg 05/28/2025 Weight 158 lbs 05/28/2025 BMI 26.29 kg/m2 05/28/2025 Procedures Procedure Date Ordered Date Performed Result Body Sit e 07452-KYYTLLT NAIL, 1-5 05/28/2025 N/A 65861-SBSV SKIN LESIONS, OVER 4 05/28/2025 N/A T0468-STFDRAJR DYSTROPHIC NAILS ANY # 05/28/2025 N/A Encounters Encounter Location Date Provider Diagnosis [facility] [address] [place] [address] 05/28/2025 Alex Francisco Atherosclerosis of artery of both lower extremities I70.203 ; Tinea unguium B35.1 ; Pain in right toe(s) M79.674 ; Other hammer toe(s) (acquired), right foot M20.41 ; Arthritis of joint of lesser toe, right M19.071 ; Other hammer toe(s) (acquired), left foot M20.42 and Arthritis of joint of lesser toe, left M19.072 Assessments Encounter Date Diagnosis (ICD Code) Assessment Notes Treatment Notes Treatment Clinical Notes Section Notes 05/28/2025 Tinea unguium (ICD-10 - B35.1) 05/28/2025 Atherosclerosis of artery of both lower extremities (ICD-10 - I70.203) Q7(A), Q8(2B), Q9(1B,2C) 05/28/2025 Pain in right toe(s) (ICD-10 - M79.674) 05/28/2025 Other hammer toe(s) (acquired), right foot (ICD-10 - M20.41) 05/28/2025 Arthritis of joint of lesser toe, right (ICD-10 - M19.071) 05/28/2025 Other hammer toe(s) (acquired), left foot (ICD-10 - M20.42) 05/28/2025 Arthritis of joint of lesser toe, left (ICD-10 - M19.072) Plan Of Treatment Pending Test Test Name Order Date 17566-VQCOONR NAIL, 6 OR MORE 05/10/2018 89534-JIBQNXP NAIL, 1-5 05/28/2025 18326-Bqwwfwnr Plate 04/05/2011 29662-Oavgemcr Plate 05/13/2011 73074-CPY 05/03/2012 67657-CRM 08/09/2013 21608- Debride <25 sq cm 05/18/2012 91694- Debride <25 sq cm 05/26/2011 05540-YMGREYN SKIN/TISSUE 08/20/2013 65089-UWMR SKIN LESIONS, OVER 4 05/28/20 25 C4765-RSDDHUCO DYSTROPHIC NAILS ANY # Next Appt Details Provider Name:Alex Francisco , 09/24/2025 11:15:00 AM, [address] [facility], [place], [address], Insurance Providers Payer Name Payer Address Payer Phone Subscriber Number Group Number Insured Name Patient Relationship to Insured Coverage Start Date Coverage End Date [employer] [place] [employer] [address] [place] [address] [phone] [id number] Danna Kelley Self - patient is the insured 4 Medical (General) History Medical History History ICD Code reflux mumps measles headaches/migraines chicken pox back, hip, knee pain Hammer toe undefined High Blood Pressure Bone implants/screws spinal fusion Degenerative Disc disease Surgical History Surgery Date(Month/Year) spinal fusion 2004 back surgery 2003 Hospitalization History Reason Date(Month/Year) 05/2013 Patient went to [facility] for dehydration. 03/2013 Patient was in [facility] for dehydration. 11/2012
--- OUTSIDE RECORDS SUMMARY | 2025-06-03 14:15 | XMS_ITS | Clinical Summary ---
Author Organization [facility] Address [address] [place] [address] Phone Care Team Providers Care Stock Dealer Name Role Phone Raghu France MD Primary [...] file Insurance MEDICARE PART A & [facility] REPLAC[facility] MEDICARE PART A & B [facility] MEDICARE REPLACEMENT MEDICARE PART A & B [facility] MEDICARE PART A & [facility] & [facility] MEDIC[facility] REPLACEMENT MEDICARE PART A & B [facility] & B [facility] MEDICARE REPLACEMENT MEDICARE PART A & B [facility] MEDICARE REPLACEMENT MEDICARE PART A & B [facility] MEDICARE REPLACEMENT WORKERS COMPENSATION Care Teams Stock Dealer Relationship Specialty Start Date End Date Raghu France MD [address] [place] [address] [place] [address] PCP - General Internal Medicine 10/10/17 Additional Source Comments The information contained in this document represents components of the legal health record. It is not the complete legal health record.[facility]
[2025-06-28 12:43] VITALS: BMI 30.4
--- NOTE | 2025-07-01 09:35 | HO.ANESPROP2 ---
Documented by User: Margie Mcgarry NP 07/01/25 09:36 HPI - Anesthesia Eval Consult details Narrative: 65 yr old female for colonoscopy PMF Active Problems Active Problems: All Active Problems (Updated 06/28/25 @ 12:39 by Lucero Sofia, ASHLIE) Left ankle effusion (Acute) History of ankle surgery (Acute) Bimalleolar fracture of left ankle (Acute ~2020) Chronic pain of left ankle (Acute) Personal history of nicotine dependence (Acute) Past Medical History Medical History Hx of ectopic Chronic pain of left ankle IBS (irritable bowel syndrome) GERD (gastroesophageal reflux disease) Personal history of nicotine dependence Tubular adenoma of colon (~2014) COVID-19 vaccine administered Arthritis of back Chronic back pain Depression Migraine Elevated cholesterol Hypertension History of palpitations Family History Family History Brother Lung cancer Family history of problems with anesthesia: No Surgical History Surgical History History of ankle surgery History of colonoscopy History of hand surgery History of back surgery Status post left foot surgery History of carpal tunnel surgery of right wrist History of lumbar spinal fusion History of Problems with Anesthesia: No Social History Social History Alcohol intake: never Patient Tobacco Use Status: Former Tobacco user Years Smoked: (onset 14yo, smoked for total of 30yrs at 1ppd - 30pyh, quit 2018, vaping e-Cigarette/Vaping Use: Currently Using Use of substances other than those prescribed or required for medical reasons: No Advance Directives: No Advance Directives Information Provided: Yes Advance Directives Date on File: 05/13/20 Current occupational status: unemployed Current occupation: right handed Meds Allergies Allergy/AdvReac Type Severity Reaction Status Date / Time gabapentin Allergy Rash Verified 05/02/25 11:15 Iodinated Contrast Media Allergy Hives Verified 05/02/25 11:15 oxycodone (From OxyContin) Allergy Hives Verified 05/02/25 11:15 Home Medications ?Medication ?Instructions ?Recorded ?Confirmed ?Last Taken ?Type atorvastatin 10 mg tablet 1 tab PO DAILY 05/06/20 06/28/25 Unknown History dicyclomine 20 mg tablet 1 tab PO QID 05/06/20 06/28/25 Unknown History diphenoxylate-atropine 2.5 1 tab PO DAILY PRN Diarrhea 05/06/20 06/28/25 Unknown History mg-0.025 mg tablet (Lomotil) fluoxetine 20 mg capsule 60 mg PO 05/06/20 02/26/21 07:00 History wyidjxbmjqan-wnomqzkh-whacwp tablet 1 tab PO DAILY 05/06/20 06/28/25 Unknown History propranolol 60 mg capsule,24 1 cap PO DAILY 05/06/20 06/28/25 Unknown History hr,extended release quetiapine 50 mg tablet 1 tab PO BEDTIME 05/06/20 06/28/25 Unknown History rizatriptan 10 mg tablet (Maxalt) 10 mg PO Q2-4H PRN Migraine 05/06/20 05/06/20 Unknown History Headache venlafaxine 150 mg 150 mg PO DAILY 05/02/25 06/28/25 Unknown History capsule,extended release 24 hr amlodipine 5 mg-benazepril 10 mg 1 cap PO DAILY 06/28/25 07/02/25 07/02/25 History capsule hydrocodone 5 mg-acetaminophen 325 1 tab PO TID PRN Pain 06/28/25 06/28/25 Unknown History mg tablet timolol maleate 0.5 % eye drops drp ophthalmic (eye) 06/28/25 Unknown History Exam Height,Weight and Vital Signs: Height 5 ft 6.25 in Weight 86.137 kg Assessment and Plan Final Anesthetic Review Family History of Problems with Anesthesia: No History of Problems with Anesthesia: No Documented by User: Deyanira Ramesh MD 07/02/25 07:28 [facility] Past Medical History Medical History Hx of ectopic Chronic pain of left ankle IBS (irritable bowel syndrome) GERD (gastroesophageal reflux disease) Personal history of nicotine dependence Tubular adenoma of colon (~2014) COVID-19 vaccine administered Arthritis of back Chronic back pain Depression Migraine Elevated cholesterol Hypertension History of palpitations Family History Family History Brother Lung cancer Surgical History Surgical History History of ankle surgery History of colonoscopy History of hand surgery History of back surgery Status post left foot surgery History of carpal tunnel surgery of right wrist History of lumbar spinal fusion Social History Social History Alcohol intake: never Patient Tobacco Use Status: Former Tobacco user Years Smoked: (onset 14yo, smoked for total of 30yrs at 1ppd - 30pyh, quit 2018, vaping e-Cigarette/Vaping Use: Currently Using Use of substances other than those prescribed or required for medical reasons: No Advance Directives: No Advance Directives Information Provided: Yes Advance Directives Date on File: 05/13/20 Current occupational status: unemployed Current occupation: right handed Meds Allergies Allergy/AdvReac Type Severity Reaction Status Date / Time gabapentin Allergy Rash Verified 05/02/25 11:15 Iodinated Contrast Media Allergy Hives Verified 05/02/25 11:15 oxycodone (From OxyContin) Allergy Hives Verified 05/02/25 11:15 Home Medications ?Medication ?Instructions ?Recorded ?Confirmed ?Last Taken ?Type atorvastatin 10 mg tablet 1 tab PO DAILY 05/06/20 06/28/25 Unknown History dicyclomine 20 mg tablet 1 tab PO QID 05/06/20 06/28/25 Unknown History diphenoxylate-atropine 2.5 1 tab PO DAILY PRN Diarrhea 05/06/20 06/28/25 Unknown History mg-0.025 mg tablet (Lomotil) fluoxetine 20 mg capsule 60 mg PO 05/06/20 02/26/21 07:00 History gvnpdtjfqttd-qvbahobp-lqmkgx tablet 1 tab PO DAILY 05/06/20 06/28/25 Unknown History propranolol 60 mg capsule,24 1 cap PO DAILY 05/06/20 06/28/25 Unknown History hr,extended release quetiapine 50 mg tablet 1 tab PO BEDTIME 05/06/20 06/28/25 Unknown History rizatriptan 10 mg tablet (Maxalt) 10 mg PO Q2-4H PRN Migraine 05/06/20 05/06/20 Unknown History Headache venlafaxine 150 mg 150 mg PO DAILY 05/02/25 06/28/25 Unknown History capsule,extended release 24 hr amlodipine 5 mg-benazepril 10 mg 1 cap PO DAILY 06/28/25 07/02/25 07/02/25 History capsule hydrocodone 5 mg-acetaminophen 325 1 tab PO TID PRN Pain 06/28/25 06/28/25 Unknown History mg tablet timolol maleate 0.5 % eye drops drp ophthalmic (eye) 06/28/25 Unknown History Exam Airway Mallampati Class: II TM Dist: >3cm Neck ROM: Full Loose/Missing/Broken Teeth: No Heart: RRR Lungs: CTA Assessment and Plan Assessment Anesthesia Assessment: Anesthesia Plan Discussed and Chart Reviewed Final Anesthetic Review NPO: Yes ASA Class: II Final Preanesthetic Review: Meds/Allgs Chart Reviewed, Consent Obtained/Reviewed and Anes Risks/Benef Reviewed Patient Risk: Low Procedure Risk: Low Anesthetic Plan Anesthetic Plan: MAC: Disposition: Standard PACU
[2025-07-02 06:32] VITALS: BMI 28.5
[2025-07-02 06:53] VITALS: BP 144/73; PULSE 69; RESP 16; TEMP 35.8; O2SAT 99
[2025-07-02] MEDS: Lactated Ringers 1,000 ML 100 ML IVCONT (06:53)
--- NOTE | 2025-07-02 07:32 | MHC.SHP ---
Pre-Procedural Eval Section A - 24 Hr Update-Section A only Date of Service: 07/02/25 Section B - Complete if H&P > 30 days Chief Complaint: screening Details of Present Illness: See H&P no changes Relevant Family History (Specify if Yes): No Relevant Social History: None Present Medications: see Short Stay Collaborative assessment Medical History: No relevant PMH History of Previous Operations: No relevant previous surgery Allergies: Allergies Allergy/AdvReac Type Severity Reaction Status Date / Time gabapentin Allergy Rash Verified 05/02/25 11:15 Iodinated Contrast Media Allergy Hives Verified 05/02/25 11:15 oxycodone (From OxyContin) Allergy Hives Verified 05/02/25 11:15 Review of Systems Sugical H&P ROS: Negative: Constitution, Cardiovascular, Respiratory, Neurological, Psychiatric, Hem-Onc, Allergic/Immunologic, Gastrointestinal, Genitourinary, Musculoskeletal, Integumentary, Endocrine and Eyes/Ears/Nose/Throat Exam Surgical H&P Exam: Normal: HEENT, Normal: Heart, Normal: Lungs, Normal: Extremities, Normal: Abdomen, Normal: Skin and Normal: Neurological Plan Diagnosis/Plan: Unchanged I have reviewed the history and physical and performed a pertinent physical examination on my patient. No changes have occurred unless specified. Time Spent With Patient Time: Total time managing care of this patient today ____ minutes.
[2025-07-02 08:10] VITALS: BP 117/58; PULSE 67; RESP 18; TEMP 36.3; O2SAT 98
[2025-07-02 08:25] VITALS: BP 120/62; PULSE 61; RESP 16; TEMP 36.1; O2SAT 99
--- NOTE | 2025-07-02 08:47 | OP_ITS ---
DATE OF SERVICE: 07/02/2025 SURGEON: Chapin Sánchze MD INDICATIONS: Colon cancer screening and prior history of adenomatous colon polyps. PREOPERATIVE DIAGNOSIS: POSTOPERATIVE DIAGNOSIS: PROCEDURE PERFORMED: Colonoscopy to the terminal ileum. ESTIMATED BLOOD LOSS: COMPLICATIONS: ANESTHESIA: Monitored anesthesia care. ASSISTANTS: SPECIMENS: DESCRIPTION OF PROCEDURE: A history and physical performed, the risks and benefits of the procedure were explained to the patient. Informed consent was obtained. The patient was placed in the left lateral decubitus position. A digital rectal exam was performed and was found to be normal. The Olympus pediatric video colonoscope was introduced into the rectum and advanced to the cecum. The cecum was identified by transillumination, palpation, identification of the ileocecal valve. Examination was performed. The scope was removed. She tolerated the procedure well and was returned to recovery room in stable condition. FINDINGS: The terminal ileum was examined and appeared normal. The visualized colonic mucosa was within normal limits without evidence of masses or ulcers. No polyps were identified. There was moderate sigmoid diverticulosis and the sigmoid was somewhat tortuous. Retroflexed examination showed some small internal hemorrhoids. IMPRESSION: Normal colonoscopy. RECOMMENDATIONS: 1. Follow up as needed. 2. Repeat colonoscopy is recommended in 10 years for average-risk individuals. MD SONALI Augustin/CHANDRIKA / [id number]
== END 2025-07-02 09:01 | disposition home or self-care (01) ==
PROVIDERS: PCP Internal Medicine; Visit Provider Internal Medicine Gastroenterology
PROC: 0DJD8ZZ Inspection of Lower Intestinal Tract, Via Natural or Artificial Opening Endoscopic (ICD-10-PCS; CPT 45378; principal; 2025-07-02 07:30)
DX: Z12.11 Encounter for screening for malignant neoplasm of colon (principal); Z86.0101 Personal history of adenomatous and serrated colon polyps; K58.0 Irritable bowel syndrome with diarrhea; K21.9 Gastro-esophageal reflux disease without esophagitis; K57.30 Diverticulosis of large intestine without perforation or abscess without bleeding
CPT/HCPCS: G0121; J2003; J2704